=== PATIENT | female | born 1995 | race Caucasian/White ===

== ENCOUNTER 2022-05-20 11:36 | Outpatient (CLI) | payer OTHER, SELFPAY ==
[2022-05-21 11:48] LABS: Rubella Antibody IgG 74.7 IU/mL
== END 2022-05-20 11:37 | disposition home or self-care (01) ==
PROVIDERS: PCP Nurse Practitioner Family; Visit Provider Nurse Practitioner Family
DX: Z11.9 Encounter for screening for infectious and parasitic diseases, unspecified (principal); Z11.1 Encounter for screening for respiratory tuberculosis
CPT/HCPCS: 86735; 86762; 86765

== ENCOUNTER 2022-05-20 12:44 | Outpatient (CLI) | payer OTHER, SELFPAY | END 2022-05-20 12:45 | disposition home or self-care (01) | PROVIDERS: PCP Nurse Practitioner Family; Visit Provider Nurse Practitioner Family | DX: Z11.1 Encounter for screening for respiratory tuberculosis (principal) | CPT/HCPCS: 86735; 86762; 86765 ==

== ENCOUNTER 2022-10-21 18:48 | Emergency (ER) | payer OTHER, SELFPAY ==
[2022-10-21 19:18] VITALS: BP 135/84; PULSE 92; RESP 20; TEMP 36.6; O2SAT 100; BMI 20.8
--- NOTE | 2022-10-21 20:45 | CRLHL7_ITS ---
For Patients: As a result of the Cures Act, medical imaging exams and procedure reports are released immediately into your electronic medical record. You may view this report before your referring provider. If you have questions, please contact your health care provider. INDICATION: Mid sternal chest pain TECHNIQUE: Chest radiograph 1 view COMPARISON: None FINDINGS: Mediastinum: The mediastinum is normal in appearance. The heart silhouette is normal in size and morphology. Lung: Both lungs are unremarkable in appearance. No sign of pleural effusion seen. No pneumothorax is identified. Bone and Soft tissue: Unremarkable for age. IMPRESSION: 1. No acute cardiopulmonary disease is seen. Dictated by: Montana Fisher MD @ 10/21/2022 21:05:10 (Electronically Signed)
[2022-10-21 21:13] LABS: Hemoglobin* 14.2 gm/dL (12.0-16.0)
[2022-10-21 21:28] LABS: Chloride* 106 mmol/L (96-114); Potassium* 4.6 mmol/L (3.6-5.1); Sodium* 141 mmol/L (135-149)
[2022-10-21 21:30] LABS: Creatinine* 0.7 mg/dL (0.5-1.5); Est. Creatinine Clearance* 108.05; Estimated Glomerular Filt Rate 121 ml/min
[2022-10-21 21:31] LABS: Blood Urea Nitrogen* 11 mg/dL (5-24); Carbon Dioxide* 23 mmol/L (20-32)
[2022-10-21 21:32] LABS: Calcium* 9.8 mg/dL (8.4-10.6); Glucose* 85 mg/dL (60-115)
[2022-10-21 21:37] LABS: D Dimer Quantitative* < 0.27 ug/ml (0.00-0.50)
[2022-10-21 21:40] LABS: C Reactive Protein* < 0.5 mg/dL (0.5-1.0)
[2022-10-21 21:48] LABS: Troponin I* < 0.01 ng/mL (0.01-0.04)
[2022-10-21 22:11] VITALS: BP 114/72; PULSE 68; RESP 16; O2SAT 99
--- NOTE | 2022-10-21 22:26 | ED_ITS ---
HPI - Chest Pain General Chief Complaint: Chest Pain Stated Complaint: Chest Pains Time Seen by Provider: 10/21/22 20:11 History of Present Illness HPI narrative: 27-year-old young woman presenting to the emergency department accompanied by spouse with complaint of epigastric an pain under her left breast area that she also seems to be feeling in her mid back that has been present on and off over the last week. Cannot identify any particular exacerbating or relieving factors. Sometimes she will feel a sense of fluttering but has not felt particularly rapid heart rate ever. Denies a history of heartburn/GERD. Currently with this discomfort more in the epigastrium and the low sternum and then again in the back. Symptoms seem to have gotten more intense over the last couple of days. It is not present constantly at least in more intense forms. observing what was being described as a sense of pressure tension on the drive over in the degree of distress thought she might have been having some sort of panic event/attack. There has been some intermittent numbness in the right arm as well. No fever cough and cold symptoms. Related Data Home Medications Medication Instructions Recorded Confirmed No Known Home Medications 10/21/22 10/21/22 Allergies Allergy/AdvReac Type Severity Reaction Status Date / Time No Known Allergies Allergy Verified 10/21/22 19:22 Review of Systems Status of ROS Reports: 10 or more systems reviewed and unremarkable except as noted in History and below PFSH PFSH Family History Family/Other Type 2 diabetes mellitus Social History Smoking Status: Current every day smoker Do you use any of these nicotine containing products: Vaping Products How often do you have a drink containing alcohol: monthly or less How many standard drinks containing alcohol do you have on a typical day: 1 or 2 How often do you have six or more drinks on one occasion: Never AUDIT-C Alcohol total score: 1 Non-prescribed substance use: denies use Exam Narrative Exam Narrative: Pleasant. NAD. Laughs easily. Slim. Skin is warm and dry. No rash evident. Extremities are well perfused without edema. No apparent sensory deficits. Cranial nerves 2-12 look to be intact. Lungs are clear. Not able to reproduce pain really to palpation of the back. Maybe subtly uncomfortable to epigastric palpation but not really. Neither to palpation along the ribs under the left breast. No reproducible pain to palpation of the sternum. Equal pulses in the upper extremities. Heart with a regular rate and rhythm a little elevated initially. No murmur rub or gallop identified. Abdomen otherwise is soft nontender. No crepitus to palpation of the supraclavicular area. Trachea midline. Const Vital Signs, click to edit/add: Vital Signs - 24 hr 10/21/22 19:18 10/21/22 22:11 Temperature 97.9 F Pulse Rate [Pulse Oximeter] 92 68 Respiratory Rate 20 16 Blood Pressure [Right Upper Arm] 135/84 114/72 Pulse Oximetry 100 99 Oxygen Delivery Method Room Air Room Air Documenting provider has reviewed patient's vital signs: yes Course Vital Signs Vital signs: Initial Vital Signs Temperature 97.9 F 10/21/22 19:18 Temperature Source Temporal Artery Scan 10/21/22 19:18 Pulse Rate 92 10/21/22 19:18 Respiratory Rate 20 10/21/22 19:18 Blood Pressure 135/84 10/21/22 19:18 Blood Pressure Mean 101 10/21/22 19:18 Pulse Oximetry 100 10/21/22 19:18 Oxygen Delivery Method 10/21/22 19:18 Vital Signs Temperature 97.9 F 10/21/22 19:18 Pulse Rate 92 10/21/22 19:18 Respiratory Rate 20 10/21/22 19:18 Blood Pressure 135/84 10/21/22 19:18 Pulse Oximetry 100 10/21/22 19:18 Oxygen Delivery Method 10/21/22 19:18 Temperature 97.9 F 10/21/22 19:18 Pulse Rate 68 10/21/22 22:11 Respiratory Rate 16 10/21/22 22:11 Blood Pressure 114/72 10/21/22 22:11 Pulse Oximetry 99 10/21/22 22:11 Oxygen Delivery Method 10/21/22 22:11 MDM - Chest Pain MDM Narrative Medical decision making narrative: Anxiety certainly could have been exacerbating symptoms today at least. Given lack of reproducibly really unclear. Thinks some lab workup is reasonable looking for evidence of pulmonary embolus, vascular disruption, ischemic cardiac event, pneumothorax, pneumomediastinum, pneumonia. Not exactly reproducible or convincing for costochondritis or similar. Initial EKG reviewed by me without evidence of cardiac strain or myocarditis. Chest x-ray reviewed by me as normal Labs overall reassuring. No further events during time in the emergency department. She would like to defer further treatment at this time. Lab Data Attestation: I reviewed the patient's lab results. Labs: Lab Results 10/21/22 10/21/22 10/21/22 Range/Units 21:08 21:08 21:08 Hgb 14.2 (12.0-16.0) gm/dL D-Dimer Quant (PE/DVT) < 0.27 (0.00-0.50) ug/ml Sodium 141 (135-149) mmol/L Potassium 4.6 (3.6-5.1) mmol/L Chloride 106 (96-114) mmol/L Carbon Dioxide 23 (20-32) mmol/L BUN 11 (5-24) mg/dL Creatinine 0.7 (0.5-1.5) mg/dL Estimated Creat Clear 108.05 Estimated GFR 121 ml/min Glucose 85 (60-115) mg/dL Calcium 9.8 (8.4-10.6) mg/dL Troponin I < 0.01 L (0.01-0.04) ng/mL C-Reactive Protein < 0.5 L (0.5-1.0) mg/dL ECG Data Attestation: I personally reviewed and interpreted this ECG as follows: ( sinus rhythm rate of 82) Discharge Plan Discharge Clinical Impression: Atypical chest pain Patient Disposition: Home w/ Parent or Adult Condition: Stable Additional Instructions: Be sure to stay well hydrated as discussed. 2-3 L of water daily would be a good goal. I agree that you can follow-up in primary care to discuss this further. Return for increased frequency/persistence of these symptoms particularly if accompanied by lightheadedness, shortness of breath, nausea. You might attempt a dose or 2 of liquid antacid/anti-gas as a trial? Yes. Anxiety can present as a low smoldering symptom that can wax and wane; a tension, a pressure. Prescriptions: No Action No Known Home Medications Follow Up/Referrals: Mercy Curtis, REGULATORY COORDINATOR, PRETZEL PACKER [Primary Care Provider] - Stand Alone Forms: [facility] Staff[facility] Info Instructions
== END 2022-10-21 22:44 | disposition home or self-care (01) ==
PROVIDERS: Emergency Provider Family Medicine; PCP Nurse Practitioner Family
DX: R07.89 Other chest pain (principal)
CPT/HCPCS: 36415; 71045; 80048; 84484; 85018; 85379; 86140; 93005; 99284

== ENCOUNTER 2023-10-02 11:41 | Outpatient (CLI) | payer OTHER, SELFPAY ==
--- OUTSIDE RECORDS SUMMARY | 2023-10-12 19:45 | XMS_ITS | Clinical Summary ---
Author Name Unknown Organization [facility] Address [address] [place] [id number] Care Team Providers Care Limnologist Name Role Phone Doctor, No Primary Care Provider [facility] Unavailable Allergies No known active allergies Medications No known medications Active Problems Problem Noted Date Diagnosed Date Abdominal pain 08/25/2023 Atypical chest pain 08/25/2023 Screening examination for infectious disease Sore throat 08/25/2023 Urinary tract infection 08/25/2023 Paresthesia 08/18/2023 Tobacco dependence 04/11/2019 Changing pigmented skin lesion 12/14/2017 Encounters Date Type Department Care Team Description 08/25/2023 1:00 PM [employer] Office Visit [facility] [address] [place] [address] Zehra Balderrama, INSTRUMENT PROCESSING TECH, DIRECTOR CORPORATE SECURITY Paresthesia (Primary Dx); Deficiency of multiple nutrient elements from Last 3 Months Social History Tobacco Use Types Packs/Day Years Used Date Smoking Tobacco: Every Day Smokeless Tobacco: Never Tobacco Cessation:Ready to Q uit: Not Asked; Counseling Given: Not Answered Comments:Started vaping at age 20 Alcohol Use Standard Drinks/Week Comments Not Currently 0 (1 standard drink = 0.6 oz pur e alcohol) Sex and Gender Information Value Date Recorded Sex Assigned at Not on file Gender Identity Not on file Sexual Orientation Not on file Last Filed Vital Signs Vital Sign Reading Time Taken Comments Blood Pressure 114/70 08/25/2023 1:14 PM [employer]AGE [employer]ER Pulse - - Temperature - - Respiratory Rate - - Oxygen Saturation - - Inhaled Oxygen Concentration - - Weight 56.7 kg (125 lb) 08/25/2023 1:14 PM [employer]AGE LAB[employer] Height 165.1 cm (5' 5) 08/25/2023 1:14 PM [employer]AGE LABORER Body Mass Index 20.8 08/25/2023 1:14 PM [employer]AGE LABORER Plan of Treatment Health Maintenance Due Date Last Done Comments Hepatitis C Screening 1995 Pap Smear 1995 Anxiety Screening (JESSICA-2) 1996 Depression Assessment (PHQ-2) 1996 Pneumococcal <65 (1 of 2 - PCV) 2001 Adult Tetanus Booster 2014 COVID-19 Vaccine (3 - 2022-24 season) 2023, 05/01/2022 Influenza Vaccine (#1) 2023 10/19/2009 Procedures Procedure Name Priority Date/Time Associated Diagnosis Comments CORTISOL ([facility]) Routine 08/25/2023 12 :49 PM [employer]AGE LAB[employer]ER Deficiency of multiple nutrient elements METHYLMALONIC ACID, SERUM ([facility]) Routine 08/25/2023 12:49 PM [employer]AGE LAB[employer]ER Deficiency of multiple nutrient elements VITAMIN B6, PLASMA ([facility]) Routine 08/25/2023 12:49 PM [employer]AGE LAB[employer]ER Deficiency of multiple nutrient elements VITAMIN C ([facility]) Routine 08/25/2023 1 2:49 PM [employer]AGE LABORER Deficiency of multiple nutrient elements MAGNESIUM, RBC ([facility]) Routine 08/25/2023 12:49 PM [employer]AGE LABORER Deficiency of multiple nutrient elements ZINC, PLASMA OR SERUM ([facility]) Routine 08/25/2023 12:49 PM [employer]AGE LABORER Deficiency of multiple nutrient elements COPPER, SERUM ([facility]) Routine 08/25/2023 12:49 PM [employer]AGE LABORER Deficiency of multiple nutrient elements CALCITRIOL 1,25 DI-OH VITAMIN D ([facility]) Routine 08/25/2023 12:49 PM [employer]AGE LABORER Deficiency of multiple nutrient elements VITAMIN D, 25-HYDROXY ([facility]) Routine 08/25/2023 12:49 PM SAL[employer]AGE LABORER Deficiency of multiple nutrient elements from Last 3 Months Results * METHYLMALONIC ACID, SERUM ([facility]) (08/25/2023 12:49 PM SALVAGE LABORER) Methylmalonic Acid ([facility]) 104 0 - 378 nmol/L [facility] 1 Blood 08/25/2023 12:4 9 PM [employer]AGE LAB[employer]ER 08/24/2023 11:00 PM SAL[employer]AGE LABORER Narrative [facility] 1 - 09/06/2023 7:07 PM SALVAGE LABORER Test(s) 500778-[id number] Acid, Serum was developed and its performance characteristics determined by [facility]. It has not been cleared or approved by the Food and Drug Administration. Performed at: ??01 - [facility] ??[id number] Locomotive Boilermaker: Renae Perez MD, Phone: ??[phone] Zehra Balderrama APRN, CNP [facility] DER[facility] 1 * (ABNORMAL) VITAMIN D, 25-HYDROXY ([facility]) (08/25/2023 12:49 PM [employer]VAGE LABORER) Vitamin D,25 Hydroxy ([facility]) 14.2(L) 30.0 - 100.0 ng/mL [facility] 2 Comment: Vitamin D deficiency has been defined by the [place] of Medicine and an Endocrine Society practice guideline as a level of serum 25-OH vitamin D less than 20 ng/mL (1,2). The Endocrine Society went on to further define vitamin D insufficiency as a level between 21 and 29 ng/mL (2). 1. IOM ([place] of Medicine). 2010. Dietary reference ?? intakes for calcium and D. [place]: The ?? National AcademThe Mother List Press. 2. Ori MF, Geremias MERCADO, Tico THAYER, et al. ?? Evaluation, treatment, and prevention of vitamin D ?? deficiency: an Endocrine Society clinical practice ?? guideline. JCEM. 2011 Apr; 96(7):5191-30. Blood 08/25/2023 12:4 9 PM [employer]AGE LAB[employer]ER 08/24/2023 11:00 PM SALVAGE LABORER Narrative [facility] 2 - 09/06/2023 7:07 PM SAL[employer]AGE LABORER Performed at: ??02 - [facility] [address] ??[id number] Locomotive Boilermaker: Tim Gunderson MD, Phone: ??[phone] Zehra Balderrama APRN DIRECTOR CORPORATE SECURITY [facility]ER[facility] Performing Organization Address [facility] de Phone Number [facility] 2 * CALCITRIOL 1,25 DI-OH VITAMIN D ([facility]) (08/25/2023 12:49 PM SALVAGE LABORER) Vitamin D 1,25 di-OH ([facility]) 36.5 24.8 - 81.5 pg/mL [facility] 1 Blood 08/25/2023 12:4 9 PM [employer]AGE LAB[employer]ER 08/24/2023 11:00 PM SAL[employer]AGE LABORER Narrative [facility] 1 - 09/06/2023 7:07 PM [employer]AGE LABORER Performed at: ??01 - [facility] [address] ??[id number] Locomotive Boilermaker: Renae Perez MD, Phone: ??[phone] Zehra Balderrama APRN DIRECTOR CORPORATE SECURITY [facility]ER[facility] Performing Organization Address [facility] de Phone Number [facility] 1 * VITAMIN B6, PLASMA ([facility]) (08/25/2023 12:49 PM SALVAGE LABORER) Vitamin B6 ([facility]) 10.5 3.4 - 65.2 ug/L [facility] 1 Comment: ? Deficiency: ? <3.4 ? Marginal: ?3.4 - 5.1 ? Adequate: ? >5.1 Blood 08/25/2023 12:4 9 PM [employer] 08/24/2023 11:00 PM SALVAGE LABORER Narrative [facility] 1 - 09/06/2023 7:07 PM SAL[employer]AGE LABORER Test(s) [id number]-[id number] B6 was developed and its performance characteristics determined by [facility]. It has not been cleared or approved by the Food and Drug Administration. Performed at: ??01 - [facility] ??[id number] Locomotive Boilermaker: Renae Perez MD, Phone: ??[phone] Zehra Balderrama APRN, CNP [facility] Performing Organization Address [facility] de Phone Number [facility] 1 * CORTISOL ([facility]) (08/25/2023 12:49 PM SALVAGE LABORER) [facility] Cortisol ([facility]) 7.8 6.2 - 19.4 ug/dL [facility] 2 Comment: Please Note: The reference interval and flagging for this test is for an AM collection. If this is a PM collection please use: ? Cortisol PM: 2.3-11.9 Blood 08/25/2023 12:4 9 PM [employer] 08/24/2023 11:00 PM SAL[employer]AGE LABORER Narrative [facility] 2 - 09/06/2023 7:07 PM SALVAGE LABORER Performed at: ??02 - [facility] [address] ??[id number] Locomotive Boilermaker: Tim Gunderson MD, Phone: ??[phone] Zehra Balderrama APRN, CNP [facility] DER[facility] Performing Organization Address [facility] de Phone Number [facility] 2 * VITAMIN C ([facility]) (08/25/2023 12:49 PM SALVAGE LABORER) Vitmain C ([facility]) 0.9 0.4 - 2.0 mg/dL [facility] 1 Comment: Vitamin C deficiency is generally defined as plasma or serum concentrations less than 0.2 mg/dL and levels between 0.2 and 0.4 mg/dL are considered low. Blood 08/25/2023 12:4 9 PM [employer]AGE LAB[employer]ER 08/24/2023 11:00 PM SALVAGE LABORER Narrative [facility] 1 - 09/06/2023 7:07 PM SALVAGE LABORER Test(s) [id number] C was developed and its performance characteristics determined by [facility]. It has not been cleared or approved by the Food and Drug Administration. Performed at: ??01 - [facility] [address] ??[id number] Locomotive Boilermaker: Renae Perez MD, Phone: ??[phone] Zehra Balderrama APRN, CNP [facility] Performing Organization Address [facility] de Phone Number [facility] 1 * MAGNESIUM, RBC ([facility]) (08/25/2023 12:49 PM SALVAGE LABORER) [facility] Magnesium RBC ([facility]) 5.1 3.7 - 7.0 mg/dL [facility] 1 Comment: This test was developed and its performance characteristics determined by [facility]. It has not been cleared or approved by the Food and Drug Administration. ?Please note reference interval change Blood 08/25/2023 12:4 9 PM [employer]AGE LABORER 08/24/2023 11:00 PM SALVAGE LABORER Narrative [facility] 1 - 09/06/2023 7:07 PM SALVAGE LABORER Performed at: ??01 - [facility] [address] ??[id number] Locomotive Boilermaker: Renae Perez MD, Phone: ??[phone] Zehra Balderrama APRN, CNP [facility] DER[facility]LES Performing Organization Address [facility] de Phone Number [facility] 1 * (ABNORMAL) ZINC, PLASMA OR SERUM ([facility]) (08/25/2023 12:49 PM SALVAGE LABORER) Zinc ([facility]) 140(H) 44 - 115 ug/dL [facility] 1 Comment: ?Detection Limit = 5 Blood 08/25/2023 12:4 9 PM [employer]AGE LAB[employer]ER 08/24/2023 11:00 PM SALVAGE LABORER Narrative [facility] 1 - 09/06/2023 7:07 PM SALVAGE LABORER Test(s) [id number]-[id number], Plasma or Serum was developed and its performance characteristics determined by [facility]. It has not been cleared or approved by the Food and Drug Administration. Performed at: ??01 - [facility] [address] ??[id number] Locomotive Boilermaker: Renae Perez MD, Phone: ??[phone] Zehra Balderrama APRN, BELINDA [facility] * COPPER, SERUM ([facility]) (08/25/2023 12:49 PM SALVAGE LABORER) Copper ([facility]) 151 80 - 158 ug/dL [facility] 1 Comment: ?Detection Limit = 5 Blood 08/25/2023 12:4 9 PM SAL[employer]AGE LABORER 08/24/2023 11:00 PM SALVAGE LABORER Narrative [facility] 1 - 09/06/2023 7:07 PM SALVAGE LABORER Test(s) [id number]-Fplbhv, Serum or Plasma was developed and its performance characteristics determined by [facility]. It has not been cleared or approved by the Food and Drug Administration. Performed at: ??01 - [facility] [address] ??[id number] Locomotive Boilermaker: Renae Perez MD, Phone: ??[phone] Zehra Balderrama INSTRUMENT PROCESSING TECH, DIRECTOR CORPORATE SECURITY [facility] 1 from Last 3 Months Care Teams Limnologist Relationship Specialty Start Date End Date Doctor, No No ad PCP - General Radiology 08/25/23 Clinic, [address] [id number] PCP - Primary Care Clinic 08/25/23
--- OUTSIDE RECORDS SUMMARY | 2023-10-12 19:45 | XMS_ITS | Referral Summary ---
Author Name Unknown Organization [facility] Address [address] [place] [id number] Care Team Providers Care Flight Control Tower Operator Name Role Phone Doctor, No Primary Care Provider [facility] Unavailable Encounters Date Type Department Care Team Description 08/25/2023 1:00 PM MANAGER OF RADIOLOGY Office Visit [facility] [address] [place] [address] Zehra Balderrama, FUNCTIONAL ARCHITECT, PICTURE FRAME MAKER Paresthesia (Primary Dx); Deficiency of multiple nutrient elements from Last 3 Months Allergies No known active allergies Medications No known medications Active Problems Problem Noted Date Diagnosed Date Abdominal pain 08/25/2023 Atypical chest pain 08/25/2023 Screening examination for infectious disease Sore throat 08/25/2023 Urinary tract infection 08/25/2023 Paresthesia 08/18/2023 Tobacco dependence 04/11/2019 Changing pigmented skin lesion 12/14/2017 Social History Tobacco Use Types Packs/Day Years [...] Comments Blood Pressure 114/70 08/25/2023 1:14 PM MANAGER OF RADIOLOGY Pulse - - Temperature - - Respiratory Rate - - Oxygen Saturation - - Inhaled Oxygen Concentration - - Weight 56.7 kg (125 lb) 08/25/2023 1:14 PM MANAGER OF RADIOLOGY Height 165.1 cm (5' 5) 08/25/2023 1:14 PM MANAGER OF RADIOLOGY Body Mass Index 20.8 08/25/2023 1:14 PM MANAGER OF RADIOLOGY Plan of Treatment Not on file Procedures Procedure Name Priority Date/Time Associated Diagnosis Comments CORTISOL ([facility]) Routine 08/25/2023 12 :49 PM MANAGER OF RADIOLOGY Deficiency of multiple nutrient elements METHYLMALONIC ACID, SERUM ([facility]) Routine 08/25/2023 12:49 PM MANAGER OF RADIOLOGY Deficiency of multiple nutrient elements VITAMIN B6, PLASMA ([facility]) Routine 08/25/2023 12:49 PM MANAGER OF RADIOLOGY Deficiency of multiple nutrient elements VITAMIN C ([facility]) Routine 08/25/2023 1 2:49 PM MANAGER OF RADIOLOGY Deficiency of multiple nutrient elements MAGNESIUM, RBC ([facility]) Routine 08/25/2023 12:49 PM MANAGER OF RADIOLOGY Deficiency of multiple nutrient elements ZINC, PLASMA OR SERUM ([facility]) Routine 08/25/2023 12:49 PM MANAGER OF RADIOLOGY Deficiency of multiple nutrient elements COPPER, SERUM ([facility]) Routine 08/25/2023 12:49 PM MANAGER OF RADIOLOGY Deficiency of multiple nutrient elements CALCITRIOL 1,25 DI-OH VITAMIN D ([facility]) Routine 08/25/2023 12:49 PM MANAGER OF RADIOLOGY Deficiency of multiple nutrient elements VITAMIN D, 25-HYDROXY ([facility]) Routine 08/25/2023 12:49 PM MANAGER OF RADIOLOGY Deficiency of multiple nutrient elements from Last 3 Months Results * METHYLMALONIC ACID, SERUM ([facility]) (08/25/2023 12:49 PM MANAGER OF RADIOLOGY) Methylmalonic Acid ([facility]) 104 0 - 378 nmol/L [facility] 1 Blood 08/25/2023 12:4 9 PM MANAGER OF RADIOLOGY 08/24/2023 11:00 PM MANAGER OF RADIOLOGY Narrative [facility] 1 - 09/06/2023 7:07 PM MANAGER OF RADIOLOGY Test(s) 016740-[id number] Acid, Serum was developed and its performance characteristics determined by [facility]. It has not been cleared or approved by the Food and Drug Administration. Performed at: ??01 - [facility] [address] ??[id number] Master At Arms: Renae Perez MD, Phone: ??[phone] Zehra Balderrama APRN, BELINDA [facility] 1 * (ABNORMAL) VITAMIN D, 25-HYDROXY ([facility]) (08/25/2023 12:49 PM MANAGER OF RADIOLOGY) Vitamin D,25 Hydroxy ([facility]) 14.2(L) 30.0 - 100.0 ng/mL [facility] 2 Comment: Vitamin D deficiency has been defined by the [employer] of [employer] and an Endocrine Society practice guideline as a level of serum 25-OH vitamin D less than 20 ng/mL (1,2). The Endocrine Society went on to further define vitamin D insufficiency as a level between 21 and 29 ng/mL (2). 1. IOM ([employer] of Medicine). 2010. Dietary reference ?? intakes for calcium and D. [place]: The ?? National Academies Press. 2. Ori MF, Gerem[place], [place] THAYER, et al. ?? Evaluation, treatment, and prevention of vitamin D ?? deficiency: an Endocrine Society clinical practice ?? guideline. JCEM. 2011 Apr; 96(7):1911-30. Blood 08/25/2023 12:4 9 PM MANAGER OF RADIOLOGY 08/24/2023 11:00 PM MANAGER OF RADIOLOGY Narrative [facility] 2 - 09/06/2023 7:07 PM MANAGER OF RADIOLOGY Performed at: ??02 - [facility] [address] ??[id number] Master At Arms: Tim Gunderson MD, Phone: ??[phone] Zehra Balderrama APRN, CNP [facility] Performing Organization Address [facility]/ZIP Co de Phone Number [facility] 2 * CALCITRIOL 1,25 DI-OH VITAMIN D ([facility]) (08/25/2023 12:49 PM MANAGER OF RADIOLOGY) Vitamin D 1,25 di-OH ([facility]) 36.5 24.8 - 81.5 pg/mL [facility] 1 Blood 08/25/2023 12:4 9 PM MANAGER OF RADIOLOGY 08/24/2023 11:00 PM MANAGER OF RADIOLOGY Narrative [facility] 1 - 09/06/2023 7:07 PM MANAGER OF RADIOLOGY Performed at: ??01 - [facility] [address] ??[id number] Master At Arms: Renae Perez MD, Phone: ??[phone] Zehra Balderrama APRN, CNP [facility] Performing Organization Address [facility] Co de Phone Number [facility] 1 * VITAMIN B6, PLASMA ([facility]) (08/25/2023 12:49 PM MANAGER OF RADIOLOGY) Pathologist [facility] Vitamin B6 ([facility]) 10.5 3.4 - 65.2 ug/L [facility] 1 Comment: ? Deficiency: ? <3.4 ? Marginal: ?3.4 - 5.1 ? Adequate: ? >5.1 Blood 08/25/2023 12:4 9 PM MANAGER OF RADIOLOGY 08/24/2023 11:00 PM MANAGER OF RADIOLOGY Narrative [facility] 1 - 09/06/2023 7:07 PM MANAGER OF RADIOLOGY Test(s) [id number] B6 was developed and its performance characteristics determined by [facility]. It has not been cleared or approved by the Food and Drug Administration. Performed at: ??01 - [facility] [address] ??[id number] Master At Arms: Renae Perez MD, Phone: ??[phone] Zehra Balderrama APRN, CNP [facility] Performing Organization Address [facility] Co de Phone Number [facility] 1 * CORTISOL ([facility]) (08/25/2023 12:49 PM MANAGER OF RADIOLOGY) Cortisol ([facility]) 7.8 6.2 - 19.4 ug/dL [facility] 2 Comment: Please Note: The reference interval and flagging for this test is for an AM collection. If this is a PM collection please use: ? Cortisol PM: 2.3-11.9 Blood 08/25/2023 12:4 9 PM MANAGER OF RADIOLOGY 08/24/2023 11:00 PM MANAGER OF RADIOLOGY Narrative [facility] 2 - 09/06/2023 7:07 PM MANAGER OF RADIOLOGY Performed at: ??02 - [facility] [address] ??[id number] Master At Arms: Tim Gunderson MD, Phone: ??[phone] Zehra Balderrama APRN, CNP [facility] Performing Organization Address [facility] Co de Phone Number [facility] 2 * VITAMIN C ([facility]) (08/25/2023 12:49 PM MANAGER OF RADIOLOGY) Vitmain C ([facility]) 0.9 0.4 - 2.0 mg/dL [facility] 1 Comment: Vitamin C deficiency is generally defined as plasma or serum concentrations less than 0.2 mg/dL and levels between 0.2 and 0.4 mg/dL are considered low. Blood 08/25/2023 12:4 9 PM MANAGER OF RADIOLOGY 08/24/2023 11:00 PM MANAGER OF RADIOLOGY Narrative [facility] 1 - 09/06/2023 7:07 PM MANAGER OF RADIOLOGY Test(s) [id number]-Brrmfnc C was developed and its performance characteristics determined by [facility]. It has not been cleared or approved by the Food and Drug Administration. Performed at: ??01 - [facility] [address] ??[id number] Master At Arms: Renae Perez MD, Phone: ??[phone] Zehra Balderrama APRN, CNP [facility] Performing Organization Address [facility] de Phone Number [facility] 1 * MAGNESIUM, RBC ([facility]) (08/25/2023 12:49 PM MANAGER OF RADIOLOGY) Magnesium RBC ([facility]) 5.1 3.7 - 7.0 mg/dL [facility] 1 Comment: This test was developed and its performance characteristics determined by [facility]. It has not been cleared or approved by the Food and Drug Administration. ?Please note reference interval change Blood 08/25/2023 12:4 9 PM MANAGER OF RADIOLOGY 08/24/2023 11:00 PM MANAGER OF RADIOLOGY Narrative [facility] 1 - 09/06/2023 7:07 PM MANAGER OF RADIOLOGY Performed at: ??01 - [facility] [address] ??[id number] Master At Arms: Renae Perez MD, Phone: ??[phone] Zehra Balderrama APRN, CNP [facility] Performing Organization Address [facility] de Phone Number [facility] 1 * (ABNORMAL) ZINC, PLASMA OR SERUM ([facility]) (08/25/2023 12:49 PM MANAGER OF RADIOLOGY) Zinc ([facility]) 140(H) 44 - 115 ug/dL [facility] 1 Comment: ?Detection Limit = 5 Blood 08/25/2023 12:4 9 PM MANAGER OF RADIOLOGY 08/24/2023 11:00 PM MANAGER OF RADIOLOGY Narrative [facility] 1 - 09/06/2023 7:07 PM MANAGER OF RADIOLOGY Test(s) 415118-[id number], Plasma or Serum was developed and its performance characteristics determined by [facility]. It has not been cleared or approved by the Food and Drug Administration. Performed at: ??01 - [facility] [address] ??[id number] Master At Arms: Renae Perez MD, Phone: ??[phone] Zehra Balderrama APRN PICTURE FRAME MAKER [facility] Performing Organization Address [facility] de Phone Number [facility] 1 * COPPER, SERUM ([facility]) (08/25/2023 12:49 PM MANAGER OF RADIOLOGY) Copper ([facility]) 151 80 - 158 ug/dL [facility] 1 Comment: ?Detection Limit = 5 Blood 08/25/2023 12:4 9 PM MANAGER OF RADIOLOGY 08/24/2023 11:00 PM MANAGER OF RADIOLOGY Narrative [facility] 1 - 09/06/2023 7:07 PM MANAGER OF RADIOLOGY Test(s) [id number], Serum or Plasma was developed and its performance characteristics determined by [facility]. It has not been cleared or approved by the Food and Drug Administration. Performed at: ??01 - [facility] [address] ??[id number] Master At Arms: Renae Perez MD, Phone: ??[phone] Zehra Balderrama APRN PICTURE FRAME MAKER [facility] Performing Organization Address [facility] de Phone Number [facility] 1 from Last 3 Months Care Teams Flight Control Tower Operator Relationship Specialty Start Date End Date Doctor, No No ad PCP - General Radiology 08/25/23 Clinic, [address] [phone] PCP - Primary Care Clinic 08/25/23
--- OUTSIDE RECORDS SUMMARY | 2023-10-12 19:45 | XMS_ITS | Encounter Summary ---
Author Name Unknown Organization [facility] Address [address] [place] [id number] Care Team Providers Care Edge Cutting Machine Operator Name Role Phone Doctor, No Primary Care Provider [facility] Unavailable Reason for Visit * Reason Comments Consultation Encounter Details Date Type Department Care Team ([facility] st Contact Info) Description 08/25/2023 1:00 PM INTERVENTIONIST Office Visit [facility] [place] [place] [address] [place] [id number] Zehra Balderrama, VALET PARKING ATTENDANT, DIRECTOR STUDENT UNION [address] [place], [place] [address] Paresthesia (Primary Dx); Deficiency of multiple nutrient elements Social History Tobacco Use Types Packs/Day Years [...] on file Sexual Orientation Not on file documented as of this encounter Last Filed Vital Signs Vital Sign Reading Time Taken Comments Blood Pressure 114/70 08/25/2023 1:14 PM INTERVENTIONIST Pulse - - Temperature - - Respiratory Rate - - Oxygen Saturation - - Inhaled Oxygen Concentration - - Weight 56.7 kg (125 lb) 08/25/2023 1:14 PM INTERVENTIONIST Height 165.1 cm (5' 5) 08/25/2023 1:14 PM INTERVENTIONIST Body Mass Index 20.8 08/25/2023 1:14 PM INTERVENTIONIST documented in this encounter Progress Notes * Zehra Balderrama, HIGINIO, DIRECTOR STUDENT UNION - 08/25/2023 1:00 PM CST Images from the original note were not included. [facility] [address] [place] [address], [address] [place] [id number] Neurology Initial Note / Consultation Assessment and Plan: #. Paresthesia --MRI brain - unremarkable --MRI cervical - unremarkable --MRI thoracic - unremarkable --Spinal tap - unremarkable --JUN - negative --Check cortisol level --Explained to patient that there appears to be no neurologic origin to her symptoms #. Nutritional deficiencies --Not taking any supplements --Complete panel The differential diagnosis, prognosis, pathophysiology, etiology, and treatment options, side effects and complications and the relative benefits of treatment options were discussed in detail with the patient and family. If I can provide any further information or answer any questions in the interim, the patient or family is welcome to contact me. Chief Complaint: Consultation History of Present Illness: HPI: Jennifer Choudhury is a 28 y.o. female who presents for a neurological consultation for evaluation of paresthesia Patient was seen in ER 08/20/23 for ascending paresthesia. According to ER note it started from R calf, to BLE below knee, now up to BLE upper mid thighs, with RUE after 6 days. Symptoms started 08/14/23. No clear weakness, gait difficulty, saddle anesthesia, dysphagia, diplopia. MRI brain, C spine, T spine unremarkable as was spinal tap and all lab work. Patient states she had no other symptoms i ncluding weakness, visual changes, speech changes etc. Patient states that symptoms come and go mainly in the right arm. Onset is random. Has had some mild tingling in her right face as well. No history of these symptoms in the past. Patient states she has a history of anxiety but this has never been diagnosed. 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 Past Surgical History: No past surgical history on file. Medications: No current outpatient medications on file. Allergy: Patient has no known allergies. Family History: No family history on file. Social History: Social History Socioeconomic History Marital status: Spouse name: Not on file Number of children: Not on file Years of education: Not on file Highest education level: Not on file Occupational History Not on file Tobacco Use Smoking status: Every Day Smokeless tobacco: Never Tobacco comments: Started vaping at age 20 Vaping Use Vaping Use: Every day Substances: Nicotine, Flavoring Substance and Sexual Activity Alcohol use: Not Currently Drug use: Never Sexual activity: Not on file Other Topics Concern Not on file Social History Narrative Not on file Social Determinants of Health Financial Resource Strain: Not on file Food Insecurity: Not on file Transportation Needs: Not on file Physical Activity: Not on file Stress: Not on file Social Connections: Not on file Intimate Partner Violence: Not on file Housing Stability: Not on file Review of System: A comprehensive review of 10 systems was performed and found to be negative except as described in this note CONSTITUTIONAL: negative for fever, chills, change in weight INTEGUMENTARY/SKIN: no rash or obvious new lesions ENT/MOUTH: no sore throat, new sinus pain or nasal drainage, no neck mass noted RESP: No pleuretic pain, No cough, no hemoptysis, No SOB CV: negative for chest pain, palpitations or peripheral edema GI: no nausea, vomiting, change in stools : no dysuria or hematuria MUSCULOSKELETAL: no myalgias, arthralgias or join effusion ENDOCRINE: no history of polyuria, polydyspsia or symptoms of thyroid dysfunction PSYCHIATRIC: no change in mood stable LYMPHATIC: no new lymphadenopathy HEME: no bleeding or easy bruisability NEURO: see HPI Physical Exam: BP 114/70 Ht 5' 5 (1.651 m) Wt 56.7 kg (125 lb) BMI 20.80 kg/m?? GENERAL: The patient is alert, cooperative and in no distress. HEENT: Head is atraumatic and normocephalic. Hearing is normal. Mucosa is intact. Sinus palpation is unremarkable. Neck is supple. Facial movement and facial sensation is normal. Temporal artery and temporomandibular joint palpation is unremarkable. LUNGS: Clear to auscultation, without adventitial sounds. CARDIOVASCULAR SYSTEM: Regular rate, no murmur. Pulses are normal. SKIN: No rash or lesions are noted. EXTREMITIES: No clubbing or cyanosis NEUROLOGIC EXAMINATION MENTAL STATUS: The patient is able to respond to simple commands and questions appropriately. Speech, orientation, memory, fund of knowledge, attention and concentration are normal. CRANIAL NERVES II THROUGH XII: II - XII are intact. MOTOR EXAMINATION: Muscle tone and bulk are normal throughout, without wasting or fasciculations. Strength testing is unremarkable and upper and lower extremities. DEEP TENDON REFLEXES: are normal and symmetric. SENSORY EXAMINATION: Sensation is intact and symmetric to vibration, touch and pin. No spinal sensory level is detected. CEREBELLAR EXAMINATION: No dysdiadochokinesis or dysmetria is noted, and coordination is normal. Romberg is negative. GAIT: Normal including toe, heel and tandem. Data: ROUTINE LABS CSF studies IGG CSF <=3.40 mg/dL 1.69 ALBUMIN,CSF <=35.00 mg/dL 12.75 IGG 610.30 - 1616.00 mg/dL 1,228.98 ALBUMIN,SERUM IMMUNO 3500.00 - 5200.00 mg/dL 4,881.99 IGG INDEX 0.30 - 0.60 0.53 IGG SYNTHESIS <=8.00 mg/day <0.00 OLIGOCLONAL BANDS Absent Absent ELP INTERPRETATION,CSF/SERUM Study within normal limits. No evidence of a demyelinating disease process. Interpreted and electronically signed by: Daniella Ashley MD PROTEIN CSF,TOTAL 15 - 45 mg/dL 25 IGG CSF <=3.40 mg/dL 1.69 ALBUMIN,CSF <=35.00 mg/dL 12.75 PROTEIN CSF,TOTAL 15 - 45 mg/dL 25 TUBE NUMBER Four CSF COLOR Colorless Colorless CSF CLARITY Clear Clear TOTAL NUCLEATED CELLS, CSF <=25 /cu mm 1 RED BLOOD COUNT, CSF <10 /cu mm 0 CULTURE No Growth. [facility] GRAM STAIN No PMNs [facility] GRAM STAIN No organisms seen [facility] GRAM STAIN Gram stain performed by [place], [place] PROTEIN CSF,TOTAL 15 - 45 mg/dL 25 GLUCOSE,CSF 40 - 70 mg/dL 56 08/27 SEDIMENTATION RATE <20 mm/hr 10 ANTINUCLEAR ANTIBODY (JUN) Negative Negative ANTI-OHOGAMIUT DNA Negative Negative ANCA Negative Negative C-REACTIVE PROTEIN <0.5 mg/dL <0.3 TSH 0.27 - 4.20 uIU/mL 2.86 VITAMIN B12 232 - 1245 pg/mL 641 FOLIC ACID 4.6 - 34.8 ng/mL 10.5 Component 08/18/23 05/22/19 WHITE BLOOD COUNT 11.7 High 10.4 RED BLOOD COUNT 4.85 4.10 HEMOGLOBIN 15.2 13.1 HEMATOCRIT 44.7 38.4 MCV 92 94 MCH 31.3 32.0 MCHC 34.0 34.1 RDW 12.4 12.3 PLATELET COUNT 274 259 MPV 8.4 8.1 % NEUT 77.5 77.7 % LYMPH 16.5 12.5 % MONO 4.9 8.7 % EOS 0.8 0.9 % BASO 0.3 0.2 ABSOLUTE NEUTROPHILS 9.1 High 8.1 High ABSOLUTE LYMPHOCYTES 1.9 1.3 ABSOLUTE MONOCYTES 0.6 0.9 High ABSOLUTE EOSINOPHILS 0.1 0.1 ABSOLUTE BASOPHILS 0.0 0.0 Component 08/18/23 05/22/19 SODIUM 138 140 POTASSIUM 4.1 3.7 CHLORIDE 102 107 CO2,TOTAL 25 23 ANION GAP 11 10 GLUCOSE 88 84 CALCIUM 9.8 9.5 BUN 13 14 CREATININE 0.76 0.86 BUN/CREAT RATIO 17 -- eGFR >90 -- ALBUMIN 5.1 High 4.5 PROTEIN,TOTAL 8.4 High 7.7 BILIRUBIN,TOTAL 0.5 0.6 ALK PHOSPHATASE 72 57 ALT (SGPT) 10 11 AST (SGOT) 15 13 IMAGING: All imaging studies were reviewed personally MRI cervical w&wo 08/19/23: Unremarkable contrast-enhanced MRI of the cervical spine. No foci of abnormal intraspinal enhancement of the cervical spine. MRI thoracic w&wo 08/19/23: Unremarkable MRI of the thoracic spine. Normal cord signal. No suspicious enhancement. MRI brain w&wo 08/19/23: Unremarkable contrast-enhanced MRI of the brain. Zehra Balderrama APRN, DIRECTOR STUDENT UNION TIME: I spent 45 minutes on the date of the encounter with this patient consisting of activities before, during, and after the encounter including time spent: Preparing to see the patient including review of the chart, tests, and/or outside records. Reviewing and verifying information regarding the chief complaint and history already recorded by ancillary staff and/or the patient. Obtaining history and performing medically appropriate evaluation. Counseling the patient regarding the diagnosis, additional diagnostic considerations, possible diagnostic testing, and any potential options for therapy, including conservative/lifestyle measures andpharmacotherapy including risks/benefits, side effects, and adverse effects. I also counseled the patient on how to contact me with any questions or concerns, new or worsening symptoms. Ordering medications, tests, and/or procedures, and documenting in the chart. RVENTIONIST documented in this encounter Plan of Treatment Not on file documented as of this encounter Procedures Procedure Name Priority Date/Time Associated Diagnosis Comments METHYLMALONIC ACID, SERUM ([facility]) Routine 08/25/2023 12:49 PM INTERVENTIONIST Deficiency of multiple nutrient elements VITAMIN D, 25-HYDROXY ([facility]) Routine 08/25/2023 12:49 PM INTERVENTIONIST Deficiency of multiple nutrient elements CALCITRIOL 1,25 DI-OH VITAMIN D ([facility]) Routine 08/25/2023 12:49 PM INTERVENTIONIST Deficiency of multiple nutrient elements VITAMIN B6, PLASMA ([facility]) Routine 08/25/2023 12:49 PM INTERVENTIONIST Deficiency of multiple nutrient elements CORTISOL ([facility]) Routine 08/25/2023 12 :49 PM INTERVENTIONIST Deficiency of multiple nutrient elements VITAMIN C ([facility]) Routine 08/25/2023 1 2:49 PM INTERVENTIONIST Deficiency of multiple nutrient elements MAGNESIUM, RBC ([facility]) Routine 08/25/2023 12:49 PM INTERVENTIONIST Deficiency of multiple nutrient elements ZINC, PLASMA OR SERUM ([facility]) Routine 08/25/2023 12:49 PM INTERVENTIONIST Deficiency of multiple nutrient elements COPPER, SERUM ([facility]) Routine 08/25/2023 12:49 PM INTERVENTIONIST Deficiency of multiple nutrient elements documented in this encounter Results * CORTISOL ([facility]) (08/25/2023 12:49 PM INTERVENTIONIST) Cortisol ([facility]) 7.8 6.2 - 19.4 ug/dL [facility] Comment: Please Note: The reference interval and flagging for this test is for an AM collection. If this is a PM collection please use: ? Cortisol PM: 2.3-11.9 Blood 08/25/2023 12:4 9 PM INTERVENTIONIST 08/24/2023 11:00 PM INTERVENTIONIST Narrative [facility] 2 - 09/06/2023 7:07 PM INTERVENTIONIST Performed at: ??02 - [facility] [address] ??[id number] Manager Operating: Tim Gunderson MD, Phone: ??[phone] Zehra Balderrama APRN, CNP [facility] OR Vyteris [facility] 2 * METHYLMALONIC ACID, SERUM ([facility]) (08/25/2023 12:49 PM INTERVENTIONIST) Pathologist [facility] Methylmalonic Acid ([facility]) 104 0 - 378 nmol/L [facility] Blood 08/25/2023 12:4 9 PM INTERVENTIONIST 08/24/2023 11:00 PM INTERVENTIONIST Narrative [facility] 1 - 09/06/2023 7:07 PM INTERVENTIONIST Test(s) 604855-Rlzxevepbveuj Acid, Serum was developed and its performance characteristics determined by [facility]. It has not been cleared or approved by the Food and Drug Administration. Performed at: ??01 - [facility] [address] ??[id number] Manager Operating: Renae Perez MD, Phone: ??[phone] Zehra Balderrama APRN, CNP [facility] OR DERABLES Performing Organization Address [facility] de Phone Number [facility] 1 * VITAMIN B6, PLASMA ([facility]) (08/25/2023 12:49 PM INTERVENTIONIST) Vitamin B6 ([facility]) 10.5 3.4 - 65.2 ug/L [facility] 1 Comment: ? Deficiency: ? <3.4 ? Marginal: ?3.4 - 5.1 ? Adequate: ? >5.1 Blood 08/25/2023 12:4 9 PM INTERVENTIONIST 08/24/2023 11:00 PM INTERVENTIONIST Narrative [facility] 1 - 09/06/2023 7:07 PM INTERVENTIONIST Test(s) 928128-Lqwnxco B6 was developed and its performance characteristics determined by [facility]. It has not been cleared or approved by the Food and Drug Administration. Performed at: ??01 - [facility] ??[id number] Manager Operating: Renae Perez MD, Phone: ??[phone] Zehra Balderrama APRN, CNP [facility] DERABLES Performing Organization Address [facility] de Phone Number [facility] 1 * VITAMIN C ([facility]) (08/25/2023 12:49 PM INTERVENTIONIST) Pathologist [facility] Vitmain C ([facility]) 0.9 0.4 - 2.0 mg/dL [facility] 1 Comment: Vitamin C deficiency is generally defined as plasma or serum concentrations less than 0.2 mg/dL and levels between 0.2 and 0.4 mg/dL are considered low. Blood 08/25/2023 12:4 9 PM INTERVENTIONIST 08/24/2023 11:00 PM INTERVENTIONIST Narrative [facility] 1 - 09/06/2023 7:07 PM INTERVENTIONIST Test(s) 511452-Ipqsthd C was developed and its performance characteristics determined by [facility]. It has not been cleared or approved by the Food and Drug Administration. Performed at: ??01 - [facility] [address] ??[id number] Manager Operating: Renae Perez MD, Phone: ??[phone] Zehra Balderrama APRN, CNP [facility] DERABLES Performing Organization Address [facility]/ZIP Co de Phone Number [facility] 1 * MAGNESIUM, RBC ([facility]) (08/25/2023 12:49 PM INTERVENTIONIST) Magnesium RBC ([facility]) 5.1 3.7 - 7.0 mg/dL [facility] 1 Comment: This test was developed and its performance characteristics determined by [facility]. It has not been cleared or approved by the Food and Drug Administration. ?Please note reference interval change Blood 08/25/2023 12:4 9 PM INTERVENTIONIST 08/24/2023 11:00 PM INTERVENTIONIST Narrative [facility] 1 - 09/06/2023 7:07 PM INTERVENTIONIST Performed at: ??01 - [facility] [address] ??[id number] Manager Operating: Renae Perez MD, Phone: ??[phone] Zehra Balderrama APRN, CNP [facility] OR DERABLES Performing Organization Address [facility]/ZIP Co de Phone Number [facility] 1 * (ABNORMAL) ZINC, PLASMA OR SERUM ([facility]) (08/25/2023 12:49 PM INTERVENTIONIST) Zinc ([facility]) 140(H) 44 - 115 ug/dL [facility] 1 Comment: ?Detection Limit = 5 Blood 08/25/2023 12:4 9 PM INTERVENTIONIST 08/24/2023 11:00 PM INTERVENTIONIST Narrative [facility] 1 - 09/06/2023 7:07 PM INTERVENTIONIST Test(s) 453296-Fvkm, Plasma or Serum was developed and its performance characteristics determined by [facility]. It has not been cleared or approved by the Food and Drug Administration. Performed at: ??01 - [facility] [address] ??[id number] Manager Operating: Renae Perez MD, Phone: ??[phone] Zehra Balderrama APRN, CNP [facility] OR DERABLES Performing Organization Address [facility] de Phone Number [facility] 1 * COPPER, SERUM ([facility]) (08/25/2023 12:49 PM INTERVENTIONIST) Copper ([facility]) 151 80 - 158 ug/dL [facility] 1 Comment: ?Detection Limit = 5 Blood 08/25/2023 12:4 9 PM INTERVENTIONIST 08/24/2023 11:00 PM INTERVENTIONIST Narrative [facility] 1 - 09/06/2023 7:07 PM INTERVENTIONIST Test(s) 435560-Nngsed, Serum or Plasma was developed and its performance characteristics determined by [facility]. It has not been cleared or approved by the Food and Drug Administration. Performed at: ??01 - [facility] [address] ??[id number] Manager Operating: Renae Perez MD, Phone: ??[phone] Zehra Balderrama APRN, CNP [facility] OR DERABLES Performing Organization Address [facility] de Phone Number [facility] 1 * CALCITRIOL 1,25 DI-OH VITAMIN D ([facility]) (08/25/2023 12:49 PM INTERVENTIONIST) Vitamin D 1,25 di-OH ([facility]) 36.5 24.8 - 81.5 pg/mL [facility] 1 Blood 08/25/2023 12:4 9 PM INTERVENTIONIST 08/24/2023 11:00 PM INTERVENTIONIST Narrative [facility] 1 - 09/06/2023 7:07 PM INTERVENTIONIST Performed at: ??01 - [facility] [address] ??[id number] Manager Operating: Renae Perez MD, Phone: ??[phone] Zehra Balderrama VALET PARKING ATTENDANT, DIRECTOR STUDENT UNION [facility] OR DERABLES [facility] 1 * (ABNORMAL) VITAMIN D, 25-HYDROXY ([facility]) (08/25/2023 12:49 PM INTERVENTIONIST) Vitamin D,25 Hydroxy ([facility]) 14.2(L) 30.0 - 100.0 ng/mL [facility] 2 Comment: Vitamin D deficiency has been defined by the [place] [employer] and an Endocrine Society practice guideline as a level of serum 25-OH vitamin D less than 20 ng/mL (1,2). The Endocrine Society went on to further define vitamin D insufficiency as a level between 21 and 29 ng/mL (2). 1. IOM ([place] [employer]). 2010. Dietary reference ?? intakes for calcium and D. [place]: The ?? National Academies Press. 2. Ori MF, Geremias [place], [place] THAYER, et al. ?? Evaluation, treatment, and prevention of vitamin D ?? deficiency: an Endocrine Society clinical practice ?? guideline. JCEM. 2010; 96(7):1911-30. Blood 08/25/2023 12:4 9 PM INTERVENTIONIST 08/24/2023 11:00 PM INTERVENTIONIST Narrative [facility] 2 - 09/06/2023 7:07 PM INTERVENTIONIST Performed at: ??02 - [facility] [address] ??[id number] Manager Operating: Tim Gunderson MD, Phone: ??[phone] Zehra Noel Conchis VALET PARKING ATTENDANT, DIRECTOR STUDENT UNION [facility] OR DERABLES [facility] 2 documented in this encounter Visit Diagnoses Diagnosis Paresthesia- Primary Disturbance of skin sensation Deficiency of multiple nutrient elements Other nutritional deficiency documented in this encounter Care Teams Edge Cutting Machine Operator Relationship Specialty Start Date End Date Doctor, No No ad PCP - General Radiology 08/25/23 Clinic, [address] [id number] PCP - Primary Care Clinic 08/25/23 documented as of this encounter
--- OUTSIDE RECORDS SUMMARY | 2023-10-12 19:46 | XMS_ITS | Clinical Summary ---
Author Name Unknown Organization [facility] Address [place], [place] [address] Care Team Providers Care Business Systems Lead Name Role Phone None Primary Care Provider Unavailabl e Pcp, No Unavailable Unavailable Medications No known medications Active Problems Problem Noted Date Diagnosed Date Paresthesia 08/18/2023 Tobacco dependence 04/11/2019 Changing pigmented skin lesion 12/14/2017 Encounters Date Type Department Care Team Description 10/06/2023 Lab Requisition [facility] [phone] Demi Parnell CNM 08/24/2023 Telephone [facility] [address] [place] [phone] Radha Hill DO Referral (neurology) 08/19/2023 2:40 PM [place] AUDIT[place] Anesthesia Event [facility] [address] [place] [address] Henny Mackay CRNA 08/18/2023 2:12 AM [place] AUDITOR - 08/20/2023 3:30 PM [place] AUDITOR Emergency [facility] [address] [place] [address] Rachael Bhatt MD Nguyen, Thao Nguyen L, [employer] SALES REPRESENTATIVE Jozef Mistry MBBS Paresthesia (Primary Dx) Discharge Disposition: Home Self Care 08/18/2023 Travel from Last 3 Months Immunizations Name Administration Dates Next Due Influenza A (H1N1), Inactivated 10/19/2009 Family History Medical History Relation Name Comments Good Health Brother 1 Good Health Brother 2 Good Health Brother 3 Good Health Father Good Health Mother Relation Name Status Comments Brother 1 Alive Brother 2 Alive Brother 3 Alive Father Alive Mother Alive Social History Tobacco Use Types Packs/Day Years Used Date Smoking Tobacco: Never Smokeless Tobacco: Never Tobacco Cessation:Counseling Given: Not Answered Alcohol Use Standard Drinks/Week Comments Not Currently 0 (1 standard drink = 0.6 oz pur e alcohol) PHQ-2 Answer Date Recorded PHQ-2 Score 0 04/11/2019 Social Connections Answer Date Recorded Frequency of Communication with Friends and Fami ly 0 08/18/2023 Financial Resource Strain Answer Date R ecorded Difficulty of Paying Living Expenses 3 08/18/2023 Difficulty of Paying Living Expenses Not on file 08/18/2023 Food Insecurity Answer Date Recorded Worried About Running Out of Food in the Last Ye ar 1 08/18/2023 Transportation Needs Answer Date Record ed Lack of Transportation (Medical) 1 08/18/2023 Housing Stability Answer Date Recorded Unable to Pay for Housing in the Last Year 1 08/18/2023 Sex and Gender Information Value Date Recorded Sex Assigned at Not on file Gender Identity Not on file Sexual Orientation Not on file Obstetrics History Last Filed Vital Signs Vital Sign Reading Time Taken Comments Blood Pressure 114/66 08/20/2023 8:57 AM [place] AUDIT[place] Pulse 74 08/20/2023 5:00 AM [place] AUDITOR Temperature 36.9 ??C (98.5 ??F) 08/20/2023 8:57 AM CS T Respiratory Rate 18 08/20/2023 8:57 AM [place] AUDITOR Oxygen Saturation 96% 08/20/2023 5:00 AM [place] AUDITOR Inhaled Oxygen Concentration - - Weight 56.6 kg (124 lb 12.8 oz) 023 10:53 AM [place] AUDITOR Height 165.1 cm (5' 5) 08/18/2023 2:20 AM [place] AUDITOR Body Mass Index 20.77 08/18/2023 2:20 AM [place] AUDITOR Plan of Treatment Health Maintenance Due Date Last Done Comments COVID-19 vaccine series (#1) 1995 Tdap 2006 Tetanus booster 2015 BMI (ht and wt on same day) for age 18+ 04/11/2020 04/11/2019, 11/13/2017, 11/08/2015 Depression screening for age 12+ 04/11/2020 04/11/2019 Influenza for age 9-49 06/05/2023 10/19/2009 Pap test for age 21-65 10/02/2026 3, 04/05/2018 HIV for age 15-65 Completed 11/08/2015 Hepatitis C screening for ag e 18-79 Completed 11/08/2015 Pneumococcal series for age 6-64 Aged Out No longer eligible b ased on patient's age to complete this topic Procedures Procedure Name Priority Date/Time Associated Diagnosis Comments LAB TRACKING EVENT Routine 10/02/2023 11 :30 AM [place] AUDIT[place] HPV THIN PREP Routine 10/02/2023 11:30 AM [place] AUDITOR GLUCOSE METER Routine 08/20/2023 3:09 PM [place] AUDITOR PATH NON FIREWALL ENGINEER CYTOLOGY Today 08/20/2023 2:07 PM [place] AUDITOR AHC AN LUMBAR PUNCTURE Routine 2:45 PM [place] AUDITOR MULTIPLE SCLEROSIS SCN CSF Today 08/19/2023 2:36 PM [place] AUDITOR CSF CELL COUNT/DIFF Today 08/19/2023 2 :36 PM [place] AUDITOR SPINAL FLUID CULT, STAIN Today 08/19/2023 2:36 PM [place] AUDITOR PROTEIN CSF,TOTAL Today 08/19/2023 2:3 6 PM [place] AUDITOR GLUCOSE,CSF Today 08/19/2023 2:36 PM [place] AUDITOR MR HEAD BRAIN WWO STAT 08/19/2023 1:0 8 PM [place] AUDITOR MR SPINE THORACIC WWO STAT 08/19/2023 1:07 PM [place] AUDITOR MR SPINE CERVICAL WWO STAT 08/19/2023 1:05 PM [place] AUDITOR DNA DOUBLE-STRANDED (DSDNA) ANTIBODIES BY CRITHIDIA LUCILIAE IFA Early AM 08/19/2023 6:24 AM [place] AUDITOR ANCA PANEL FOR VASCULITIS Early AM 08/19/2023 6:24 AM [place] AUDITOR ANTINUCLEAR ANTIBODY BY IFA Early AM 08/19/2023 6:24 AM [place] AUDITOR SEDIMENTATION RATE Early AM 08/19/2023 6: 24 AM [place] AUDITOR MULTIPLE SCLEROSIS SCN SERUM Today 08/18/2023 2:46 PM [place] AUDITOR C-REACTIVE PROTEIN Timed 08/18/2023 2: 46 PM [place] AUDITOR MULTIPLE SCLEROSIS SCREEN Today 08/18/2023 2:46 PM [place] AUDITOR CBC WITH AUTO DIFFERENTIAL STAT 08/18/2023 3:35 AM [place] AUDITOR FOLIC ACID STAT 08/18/2023 3:35 AM [place] AUDITOR VITAMIN B12 STAT 08/18/2023 3:35 AM [place] AUDITOR TSH STAT 08/18/2023 3:35 AM [place] AUDITOR COMP METABOLIC PANEL STAT 08/18/2023 3:35 AM [place] AUDITOR CBC WITH AUTO DIFFERENTIAL STAT 08/18/2023 3:35 AM [place] AUDITOR from Last 3 Months Results * LAB TRACKING EVENT (10/02/2023 11:30 AM [place] AUDITOR) Other (Other) Client Collect / Unknown 10/02/2023 11:30 AM [place] AUDITOR 10/06/2023 4:02 PM [place] AUDITOR Demi Parnell CNM LAB BILL ONLY [facility] [address] [place] [phone], * HPV HIGH RISK (10/02/2023 11:30 AM [place] AUDITOR) TYPE 16 Negative Negative 10/08/2023 2:27 PM [place] AUDITOR [facility] TYPE 18 Negative Negative 10/08/2023 2:27 PM [place] AUDITOR [facility] OTHER HIGH RISK TYPES Negative Negative 10/08/2023 2:27 PM [place] AUDITOR [facility] Other (Cervical) 10/02/2023 11:30 AM [place] AUDITOR 10/07/2023 10:06 AM [place] AUDITOR Narrative [facility] - 10/08/2023 2:27 PM [place] AUDITOR HPV types 16, 18, 31, 33, 35, 39, 45, 51, 52, 56, 58, 59, 66 and 68 DNA were undetectable or below the pre-set threshold. Methodology: [employer] Brynn 4800 HPV Test Demi Parnell CNM MICROBIOLOGY Performing Organization Address [facility]/ZIP Co de Phone Number [facility] [address] [place] [phone] [place] [address] * (ABNORMAL) GLUCOSE METER (08/20/2023 3:09 PM [place] AUDITOR) GLUCOSE METER 105(H) 65 - 100 mg/dL 08/20/2023 3:13 PM [place] AUDITOR [facility] Blood BLOOD SPECIMEN / Unknown 08/20/2023 3:09 PM [place] AUDITOR 08/20/2023 3:13 PM [place] AUDITOR Jozef BOURGEOIS CHEMISTRY Performing Organization Address City/[facility]/ZIP Co de Phone Number [facility] [address] [place] [address] * PATH NON FIREWALL ENGINEER CYTOLOGY (08/20/2023 2:07 PM [place] AUDITOR) Case Report Medical Cytology Report ? Case: [id number] ? Authorizing Provider: ??Jozef Mistry MBBS Collected: ? 08/20/2023 1407 ? [facility] Location[facility] ? [facility] ?Received: ?08/19/2023 1451 ? Medical Center ? Pathologist: ? Mariza Kathleen MD ? Specimen: ?Cerebrospinal Fluid ? 08/21/2023 1:36 PM [email or web address] Final Diagnosis A) CEREBROSPINAL FLUID, LUMBAR PUNCTURE: Negative for malignancy 08/21/2023 1:36 PM [email or web address] Clinical Information Concern for myelopathy 08/21/2023 1:36 PM [email or web address] Gross Description A) SOURCE: Cerebrospinal fluid The specimen consists of 1 cc of colorless clear fluid from which the following is prepared: ? -2 DiffQuik stained Cytospin slides ? -0 GMS stained Cytospin slides ? -0 Unstained air dried Cytospin Slide(s) are held for potential ancillary study purposes 08/21/2023 1:36 PM [place] AUDITOR [facility] Microscopic Description Specimen adequacy: Adequate for interpretation. All slides were reviewed. The microscopic appearance substantiates the diagnosis. The slides demonstrate rare, mature lymphocytes, a normal finding. 08/21/2023 1:36 PM [place] AUDITOR [facility] Additional Information Cytology is screened at [facility] - [address], [place] [address] and [facility] - [address], [place] [address] and [facility] - [address] [place] [address] Interpreted at [facility] - [address], [place] [address] 08/21/2023 1:36 PM [place] AUDITOR [facility] Other CEREBROSPINAL FLUID SPECIMEN / Unknown 08/20/2023 2:07 PM [place] AUDITOR 08/19/2023 2:51 PM [place] AUDITOR Jozef BOURGEOIS PATHOLOGY/CYTOL OGY Performing Organization Address City/State/[facility] Co de Phone Number [facility] [address] [place] [address], * Lumbar Puncture (08/19/2023 2:45 PM [place] AUDITOR) Narrative Henny Mackay CRNA - 08/19/2023 2:45 PM [place] AUDITOR Henny Mackay CRNA ? 08/31/2023 11:31 AM Lumbar Puncture Patient location during procedure: floor Start time: 08/19/2023 2:30 PM End time: 08/19/2023 2:39 PM Requesting provider: Sangeetha Ellington NP PreProcedure Checklist Completed: patient identified, risks and benefits discussed, timeout performed, hand hygiene performed, chloraprep used and completely dried prior to procedure, site marked, surgical consent, hand hygiene performed and procedureal consent obtained Spinal Block Patient position: sitting Prep: chloraprep Patient monitoring: continuous pulse oximetry Approach: midline Skin Infiltration: lidocaine 1% Location: L3-4 Needle Needle type: pencil-point Needle gauge: 25 G Needle length: 3.5 in Procedure: CSF Quality: clear Events: no complications. Volume Collected: 6 CC's/mL's Henny Mackay HULL BUILDER ANESTHESIA PX NOTE ORDERABLES * MULTIPLE SCLEROSIS SCN CSF (08/19/2023 2:36 PM [place] AUDITOR) IGG CSF 1.69 <=3.40 mg/dL 08/20/2023 10:38 AM [place] AUDITOR [facility] ALBUMIN,CSF 12.75 <=35.00 mg/dL 08/20/2023 10:38 AM [place] AUDITOR [facility] PROTEIN CSF,TOTAL 25 15 - 45 mg/dL 08/20/2023 10:38 AM [place] AUDITOR [facility] Cerebrospinal Fluid CEREBROSPINAL FLUID SPECIMEN / Unknown Non-Blood / Unknown 08/19/2023 2:36 PM [place] AUDITOR 08/19/2023 2:50 PM [place] AUDITOR Jozef BOURGEOIS BODY FLUID Performing Organization Address City/[facility]/ZIP Co de Phone Number [facility] [address] [place] [address], * SPINAL FLUID CULT, STAIN (08/19/2023 2:36 PM [place] AUDITOR) CULTURE No Growth. 08/24/2023 7:29 AM [place] AUDITOR [facility] GRAM STAIN No PMNs 08/24/2023 7:29 AM [place] AUDITOR [facility] GRAM STAIN No organisms seen 08/24/2023 7:29 AM [place] AUDITOR [facility] GRAM STAIN Gram stain performed by [place], [place] 08/24/2023 7:29 AM [place] AUDITOR [facility] Cerebrospinal Fluid CEREBROSPINAL FLUID SPECIMEN / Unknown Non-Blood / Unknown 08/19/2023 2:36 PM [place] AUDITOR 08/19/2023 2:50 PM [place] AUDITOR Jozef LANGSTON MICROBIOLOGY [facility] [address] [place] [id number], [facility] [address] [place] [address] * CSF CELL COUNT/DIFF (08/19/2023 2:36 PM [place] AUDITOR) TUBE NUMBER Four 08/19/2023 5:23 PM [place] AUDITOR [facility] CSF COLOR Colorless Colorless 08/19/2023 5:23 PM [place] AUDITOR [facility] CSF CLARITY Clear Clear 08/19/2023 5:23 PM [facility] TOTAL NUCLEATED CELLS, CSF 1 <=25 /cu mm 08/19/2023 5:23 PM [facility] RED BLOOD COUNT, CSF 0 <10 /cu mm 08/19/2023 5:23 PM [facility] Cerebrospinal Fluid CEREBROSPINAL FLUID SPECIMEN / Unknown Non-Blood / Unknown 08/19/2023 2:36 PM [place] AUDITOR 08/19/2023 2:50 PM [place] AUDITOR [facility] - 08/19/2023 5:23 PM [place] AUDITOR No cells observed. Unable to perform leukocyte differential. Jozef BOURGEOIS BODY FLUID [facility] [address] [place] [address] * PROTEIN CSF,TOTAL (08/19/2023 2:36 PM [place] AUDITOR) [facility] PROTEIN CSF,TOTAL 25 15 - 45 mg/dL 08/19/2023 4:08 PM [place] AUDITOR [facility] Cerebrospinal Fluid CEREBROSPINAL FLUID SPECIMEN / Unknown Non-Blood / Unknown 08/19/2023 2:36 PM [place] AUDITOR 08/19/2023 2:50 PM [place] AUDITOR Jozef BOURGEOIS BODY FLUID [facility] [address] [place] [address] * GLUCOSE,CSF (08/19/2023 2:36 PM [place] AUDITOR) Pathologist [facility] GLUCOSE,CSF 56 40 - 70 mg/dL 08/19/2023 4:08 PM [place] AUDITOR [facility] Cerebrospinal Fluid CEREBROSPINAL FLUID SPECIMEN / Unknown Non-Blood / Unknown 08/19/2023 2:36 PM [place] AUDITOR 08/19/2023 2:50 PM [place] AUDITOR Jozef Murphyjennifer MBBS BODY FLUID [facility] [address] [place] [address] * MR HEAD BRAIN WWO (08/19/2023 1:08 PM [place] AUDITOR) Anatomical Region Laterality Modality BRAIN, HEAD Magnetic Resonan ce 08/19/2023 1:18 PM [place] CITY AUDITOR Impressions 08/19/2023 1:18 PM [place] AUDITOR Unremarkable contrast-enhanced MRI of the brain. Dictated by Jagdish Palma MD @ 08/19/2023 1:18:36 PM (Electronically Signed) Narrative 08/19/2023 1:18 PM COUNTY [place] CITY AUDITOR For Patients: ??As a result of the Cures Act, medical imaging exams and procedure reports are released immediately into your electronic medical record. ??You may view this report before your referring provider. ??If you have questions, please contact your health care provider. INDICATION: Peripheral neuropathy. TECHNIQUE : Multisequence multiplanar MRI of the head before and following administration of 6 mL of gadolinium-based intravenous contrast including sagittal T2/FLAIR imaging. COMPARISON: None available. FINDINGS: Diffusion-weighted imaging demonstrates no evidence of acute or subacute ischemia. There is no abnormal brain parenchymal signal intensity. No focus of abnormal brain parenchymal or leptomeningeal enhancement is identified. The ventricles are normal in size. Flow voids of the larger intracranial arteries are patent. Bone marrow signal intensity of the calvarium is within normal limits. Orbits are unremarkable in appearance. Paranasal sinuses and mastoid air cells are predominantly clear. Procedure Note Ruel Palma MD - 08/19/2023 For Patients: As a result of the Cures Act, medical imagingexams and procedure reports are released immediately into your electronicmedical record. You may view this report before your referring provider.If you have questions, please contact your health care provider. INDICATION: Peripheral neuropathy. TECHNIQUE : Multisequence multiplanar MRI of the head before and followingadministration of 6 mL of gadolinium-based intravenous contrast includingsagittal T2/FLAIR imaging. COMPARISON: None available. FINDINGS: Diffusion-weighted imaging demonstrates no evidence of acute or subacuteischemia. There is no abnormal brain parenchymal signal intensity. Nofocus of abnormal brain parenchymal or leptomeningeal enhancement isidentified. The ventricles are normal in size. Flow voids of the larger intracranialarteries are patent. Bone marrow signal intensity of the calvarium is within normal limits.Orbits are unremarkable in appearance. Paranasal sinuses and mastoid aircells are predominantly clear. IMPRESSION: Unremarkable contrast-enhanced MRI of the brain. Dictated by Jagdish Palma MD @ 08/19/2023 1:18:36 PM (Electronically Signed) Rachael Bhatt MD MR * MR SPINE THORACIC WWO (08/19/2023 1:07 PM [place] AUDITOR) Anatomical Region Laterality Modality Spine, THORACIC SPINE Magnetic R esonance 08/19/2023 1:17 PM [place] AUDITOR Impressions 08/19/2023 1:17 PM [place] AUDITOR Unremarkable MRI of the thoracic spine. Normal cord signal. No suspicious enhancement. Dictated by Tiffany Conway MD @ 08/19/2023 1:17:59 PM (Electronically Signed) Narrative 08/19/2023 1:17 PM [place] OR CITY AUDITOR For Patients: ??As a result of the Century Cures Act, medical imaging exams and procedure reports are released immediately into your electronic medical record. ??You may view this report before your referring provider. ??If you have questions, please contact your health care provider. Indication: Peripheral neuropathy Technique: Multiplanar, multisequence, MRI of the thoracic spine, obtained without and with contrast. A total of 6 mL of Gadavist IV contrast was administered. Comparison: Same-day MRI cervical spine Findings: The normal thoracic kyphosis is preserved. No significant spondylolisthesis. Vertebral body heights are grossly maintained. No evidence of acute osseous abnormality. Intrinsic bone marrow signal appears within normal limits. No suspicious disc bulges or protrusions. No evidence of significant neural foraminal or spinal canal stenosis. The spinal cord appears normal in course, caliber, and intrinsic signal. No concerning post-contrast enhancement identified. The prevertebral and paraspinal soft tissues are unremarkable. Procedure Note Man Tiffany Nieto, - 08/19/2023 For Patients: As a result of the Cures Act, medical imagingexams and procedure reports are released immediately into your electronicmedical record. You may view this report before your referring provider.If you have questions, please contact your health care provider. Indication: Peripheral neuropathy Technique: Multiplanar, multisequence, MRI of the thoracic spine, obtained withoutand with contrast. A total of 6 mL of Gadavist IV contrast wasadministered. Comparison: Same-day MRI cervical spine Findings: The normal thoracic kyphosis is preserved. No significantspondylolisthesis. Vertebral body heights are grossly maintained. Noevidence of acute osseous abnormality. Intrinsic bone marrow signalappears within normal limits. No suspicious disc bulges or protrusions. No evidence of significantneural foraminal or spinal canal stenosis. The spinal cord appears normalin course, caliber, and intrinsic signal. No concerning post-contrastenhancement identified. The prevertebral and paraspinal soft tissues areunremarkable. IMPRESSION: Unremarkable MRI of the thoracic spine. Normal cord signal. No suspiciousenhancement. Dictated by Tiffany Conway MD @ 08/19/2023 1:17:59 PM (Electronically Signed) Rachael Bhatt MD MR * MR SPINE CERVICAL WWO (08/19/2023 1:05 PM [place] AUDITOR) Anatomical Region Laterality Modality Spine, CERVICAL SPINE Magnetic R esonance 08/19/2023 1:17 PM [place] CITY AUDITOR Impressions 08/19/2023 1:17 PM [place] AUDITOR Unremarkable contrast-enhanced MRI of the cervical spine. No foci of abnormal intraspinal enhancement of the cervical spine. Dictated by Nabor Grande MD @ 08/19/2023 1:17:41 PM (Electronically Signed) Narrative 08/19/2023 1:17 PM [place] CITY AUDITOR For Patients: ??As a result of the Cures Act, medical imaging exams and procedure reports are released immediately into your electronic medical record. ??You may view this report before your referring provider. ??If you have questions, please contact your health care provider. INDICATION: Peripheral neuropathy. TECHNIQUE: Multiplanar multisequential MRI cervical spine with sagittal T1, T2, STIR and axial GRE sequences was performed with and without the use of intravenous contrast. 6 mL of Gadavist was administered intravenously. COMPARISON: None. FINDINGS: Nonspecific straightening of the normal cervical lordosis. The vertebral body heights maintained their normal height. No abnormal marrow signal abnormality. No acute fractures or traumatic subluxation identified. The intervertebral disc spaces are preserved. No significant disc herniation or spinal canal stenosis at any cervical spinal level. No significant neural foraminal stenosis. The facet joints are unremarkable. The cervical spinal cord is normal in caliber and demonstrates normal signal characteristics. No abnormal cord edema identified. No abnormal enhancement of the intraspinal contents following the administration of intravenous contrast. The cerebellar tonsils are in normal position. No prevertebral soft tissue edema. The paraspinal soft tissues are unremarkable. Procedure Note HarjinderNabor, DO - 08/19/2023 For Patients: As a result of the Cures Act, medical imagingexams and procedure reports are released immediately into your electronicmedical record. You may view this report before your referring provider.If you have questions, please contact your health care provider. INDICATION: Peripheral neuropathy. TECHNIQUE: Multiplanar multisequential MRI cervical spine with sagittal T1, T2, STIRand axial GRE sequences was performed with and without the use ofintravenous contrast. 6 mL of Gadavist was administered intravenously. COMPARISON: None. FINDINGS: Nonspecific straightening of the normal cervical lordosis. The vertebralbody heights maintained their normal height. No abnormal marrow signalabnormality. No acute fractures or traumatic subluxation identified. The intervertebral disc spaces are preserved. No significant discherniation or spinal canal stenosis at any cervical spinal level. Nosignificant neural foraminal stenosis. The facet joints are unremarkable. The cervical spinal cord is normal in caliber and demonstrates normalsignal characteristics. No abnormal cord edema identified. No abnormalenhancement of the intraspinal contents following the administration ofintravenous contrast. The cerebellar tonsils are in normal position. No prevertebral soft tissue edema. The paraspinal soft tissues areunremarkable. IMPRESSION: Unremarkable contrast-enhanced MRI of the cervical spine. No foci ofabnormal intraspinal enhancement of the cervical spine. Dictated by Nabor Grande MD @ 08/19/2023 1:17:41 PM (Electronically Signed) Rachael Bhatt MD MR * SEDIMENTATION RATE (08/19/2023 6:24 AM [place] AUDITOR) SEDIMENTATION RATE 10 <20 mm/hr 2022 6:41 AM [place] CITY AUDITOR [facility] Blood BLOOD SPECIMEN / Unknown Butterfly / Unknown 08/19/2023 6:24 AM [place] CITY AUDITOR 08/19/2023 6:36 AM [place] AUDITOR Jozef BOURGEOIS HEMATOLOGY [facility] [address] [place] [address] * ANTINUCLEAR ANTIBODY BY IFA (08/19/2023 6:24 AM [place] AUDITOR) ANTINUCLEAR ANTIBODY (JUN) Negative Negative 08/20/2023 10:32 AM [place] CITY AUDITOR [facility] [facility] Blood BLOOD SPECIMEN / Unknown Butterfly / Unknown 08/19/2023 6:24 AM [place] AUDIT[place] 08/19/2023 6:37 AM [place] AUDIT[place] Narrative [facility] - 08/20/2023 10:32 AM [place] AUDIT[place] Method: JUN screen performed by (IFA) on HEP-2 substrate, IgG Jozef BOURGEOIS CHEMISTRY [facility] [address] [place] [address], * ANCA PANEL FOR VASCULITIS (08/19/2023 6:24 AM [place] AUDITOR) ANCA Negative Negative 08/21/2023 1:33 PM [place] AUDITOR [facility] Blood BLOOD SPECIMEN / Unknown Butterfly / Unknown 08/19/2023 6:24 AM [place] AUDITOR 08/19/2023 6:37 AM [place] AUDITOR Jozef Mistry [facility] SEND OUTS [facility] [address] [place] [address], * DNA DOUBLE-STRANDED (DSDNA) ANTIBODIES BY CRITHIDIA LUCILIAE IFA (08/19/2023 6:24 AM [place] OR [place] AUDITOR) ANTI[place]EST [place] DNA Negative Negative 08/20/2023 10:33 AM [place] AUD[facility] Blood BLOOD SPECIMEN / Unknown Butterfly / Unknown 08/19/2023 6:24 AM [place] AUDITOR 08/19/2023 6:37 AM [place] AUDITOR Narrative [facility] - 08/20/2023 10:33 AM [place] AUDITOR Method: DNA Double-Stranded (dsDNA) Antibodies by Crithidia luciliae IFA, IgG, Serum Jozef LANGSTON SEND OUTS Performing Organization Address City/[facility]/ZIP Co de Phone Number [facility] [address] [place] [address], * MULTIPLE SCLEROSIS SCN SERUM (08/18/2023 2:46 PM [place] AUDITOR) IGG CSF 1.69 <=3.40 mg/dL 08/20/2023 2:21 PM [place] AUDITOR [facility] ALBUMIN,CSF 12.75 <=35.00 mg/dL 08/20/2023 2:21 PM [place] AUDITOR [facility] IGG 1,228.98 610.30 - 1,616.00 mg/dL 08/20/2023 2:21 PM [place] AUDITOR [facility] ALBUMIN,SERUM IMMUNO 4,881.99 3,500.00 - 5,200.00 mg/dL 08/20/2023 2:21 PM [place] AUDITOR [facility] IGG INDEX 0.53 0.30 - 0.60 08/20/2023 2:21 PM [place] AUDITOR [facility] IGG SYNTHESIS <0.00 <=8.00 mg/day 08/20/2023 2:21 PM [place] AUDITOR [facility] OLIGOCLONAL BANDS Absent Absent 08/20/2023 2:21 PM [place] AUDITOR [facility] ELP INTERPRETATION ,CSF/SERUM Study within normal limits. No evidence of a demyelinating disease process. Interpreted and electronically signed by: Daniella Ashley MD 08/20/2023 2:21 PM [place] AUDITOR [facility] PROTEIN CSF,TOTAL 25 15 - 45 mg/dL 08/20/2023 2:21 PM [place] AUDIT[facility] Blood BLOOD SPECIMEN / Unknown Butterfly / Unknown 08/18/2023 2:46 PM [place] AUDITOR 08/18/2023 2:51 PM [place] AUDITOR Jozef BOURGEOIS CHEMISTRY Performing Organization Address City/[facility]/ZIP Co de Phone Number [facility] [address] [place] [address], * C-REACTIVE PROTEIN (08/18/2023 2:46 PM [place] AUDITOR) Pathologist [facility] C-REACTIVE PROTEIN <0.3 <0.5 mg/dL 08/18/2023 3:13 PM [place] AUDITOR [facility] Blood BLOOD SPECIMEN / Unknown Butterfly / Unknown 08/18/2023 2:46 PM [place] AUDITOR 08/18/2023 2:51 PM [place] AUDITOR Jozef BOURGEOIS CHEMISTRY [facility] [address] [place], [place] [id number] * (ABNORMAL) CBC WITH AUTO DIFFERENTIAL (08/18/2023 3:35 AM [place] AUDITOR) WHITE BLOOD COUNT 11.7(H) 4.5 - 11.0 thou/cu mm 08/18/2023 3:42 AM [place] AUDITOR [facility] RED BLOOD COUNT 4.85 4.00 - 5.20 mil/cu mm 08/18/2023 3:42 AM [facility] HEMOGLOBIN 15.2 12.0 - 16.0 g/dL 08/18/2023 3:42 AM [facility] HEMATOCRIT 44.7 33.0 - 51.0 % 08/18/2023 3:42 AM [facility] MCV 92 80 - 100 fL 08/18/2023 3:42 AM [facility] MCH 31.3 26.0 - 34.0 pg 08/18/2023 3:42 AM [facility] MCHC 34.0 32.0 - 36.0 g/dL 08/18/2023 3:42 AM [facility] RDW 12.4 11.5 - 15.5 % 08/18/2023 3:42 AM [facility] PLATELET COUNT 274 140 - 440 thou/cu mm 08/18/2023 3:42 AM [facility] MPV 8.4 6.5 - 11.0 fL 08/18/2023 3:42 AM [facility] % NEUT 77.5 % 08/18/2023 3:42 AM [facility] % LYMPH 16.5 % 08/18/2023 3:42 AM [facility] % MONO 4.9 % 08/18/2023 3:42 AM [facility] % EOS 0.8 % 08/18/2023 3:42 AM [facility] % BASO 0.3 % 08/18/2023 3:42 AM [facility] ABSOLUTE NEUTROPHILS 9.1(H) 1.7 - 7.0 thou/cu mm 08/18/2023 3:42 AM [facility] ABSOLUTE LYMPHOCYTES 1.9 0.9 - 2.9 thou/cu mm 08/18/2023 3:42 AM [facility] ABSOLUTE MONOCYTES 0.6 <0.9 thou/cu mm 08/18/2023 3:42 AM [facility] ABSOLUTE EOSINOPHILS 0.1 <0.5 thou/cu mm 08/18/2023 3:42 AM [facility] ABSOLUTE BASOPHILS 0.0 <0.3 thou/cu mm 08/18/2023 3:42 AM [place] AUDITOR [facility] Blood BLOOD SPECIMEN / Unknown Butterfly / Unknown 08/18/2023 3:35 AM [place] AUDITOR 08/18/2023 3:39 AM [place] AUDITOR Rachael Bhatt MD HEMATOLOG Y Performing Organization Address [facility] de Phone Number [facility] [address] [place] [address] * TSH (08/18/2023 3:35 AM [place] AUDITOR) TSH 2.86 0.27 - 4.20 uIU/mL 08/18/2023 4:05 AM [place] AUDITOR [facility] Blood BLOOD SPECIMEN / Unknown Butterfly / Unknown 08/18/2023 3:35 AM [place] AUDITOR 08/18/2023 3:39 AM [place] AUDITOR Narrative [facility] - 08/18/2023 4:05 AM [place] AUDITOR In Adults, TSH values between 5.00 and 10.00 uIU/ml do not necessarily indicate the presence of Hypothyroidism. Correlation with clinical findings such as presence of goiter and/or Thyroperoxidase (TPO) Antibody may be helpful. For more information please refer to BHARTI 2004; 291: 228-238. Rachael Bhatt MD CHEMISTRY Performing Organization Address [facility] Co de Phone Number [facility] [address] [place] [phone] * FOLIC ACID (08/18/2023 3:35 AM [place] AUDITOR) FOLIC ACID 10.5 4.6 - 34.8 ng/mL 08/18/2023 1:06 PM [place] AUDITOR [facility] Blood BLOOD SPECIMEN / Unknown Butterfly / Unknown 08/18/2023 3:35 AM [place] AUDITOR 08/18/2023 3:39 AM [place] AUDITOR N[facility]ative [facility] 08/18/2023 1:06 PM [place] AUDITOR Biotin supplements may cause clinically significant interference for this test assay. ??If interference is suspected, it is strongly recommended that biotin is discontinued for at least one week prior to retesting. Rachael Bhatt MD CHEMISTRY Performing Organization Address City/[facility]/ZIP Co de Phone Number [facility] [address] [place] [address], * VITAMIN B12 (08/18/2023 3:35 AM [place] AUDITOR) VITAMIN B12 641 232 - 1,245 pg/mL 08/18/2023 1:06 PM [facility] Blood BLOOD SPECIMEN / Unknown Butterfly / Unknown 08/18/2023 3:35 AM [place] AUDITOR 08/18/2023 3:39 AM [place] AUDITOR Narrative [facility] - 08/18/2023 1:06 PM [place] CITY AUDITOR Biotin supplements may cause clinically significant interference for this test assay. ??If interference is suspected, it is strongly recommended that biotin is discontinued for at least one week prior to retesting. Rachael Bhatt MD CHEMISTRY Performing Organization Address [facility] Co de Phone Number [facility] [address] [place] [address], * (ABNORMAL) COMP METABOLIC PANEL (08/18/2023 3:35 AM [place] OR CITY AUDITOR) SODIUM 138 136 - 145 mmol/L 08/18/2023 4:05 AM [facility] POTASSIUM 4.1 3.5 - 5.1 mmol/L 08/18/2023 4:05 AM [facility] CHLORIDE 102 98 - 107 mmol/L 08/18/2023 4:05 AM [facility] CO2,TOTAL 25 22 - 29 mmol/L 08/18/2023 4:05 AM [facility] ANION GAP 11 5 - 18 08/18/2023 4:05 AM [facility] GLUCOSE 88 70 - 99 mg/dL 08/18/2023 4:05 AM [facility] CALCIUM 9.8 8.6 - 10.0 mg/dL 08/18/2023 4:05 AM [facility] BUN 13 6 - 20 mg/dL 08/18/2023 4:05 AM [facility] CREATININE 0.76 0.50 - 0.90 mg/dL 08/18/2023 4:05 AM [facility] BUN/CREAT RATIO 17 10 - 20 3 4:05 AM [facility] eGFR >90 >90 mL/min/1.7 3m2 08/18/2023 4:05 AM [facility] Comment:As of 2021, eG FR is calculated by the CKD-EPI creatinine equation without race adjustment. ??eGFR can be influenced by muscle mass, exercise, and diet. ??The reported eGFR is an estimation only and is only applicable if the renal function is stable. ALBUMIN 5.1(H) 4.0 - 4.9 g/dL 08/18/2023 4:05 AM [facility] PROTEIN,TOTAL 8.4(H) 6.0 - 8.0 g/dL 08/18/2023 4:05 AM [facility] BILIRUBIN,TOTAL 0.5 0.0 - 1.2 mg/dL 08/18/2023 4:05 AM [facility] ALK PHOSPHATASE 72 35 - 104 IU/L 08/18/2023 4:05 AM [facility] ALT (SGPT) 10 10 - 35 IU/L 08/18/2023 4:05 AM [facility] AST (SGOT) 15 10 - 35 IU/L 08/18/2023 4:05 AM [facility] Blood BLOOD SPECIMEN / Unknown Butterfly / Unknown 08/18/2023 3:35 AM [place] AUDITOR 08/18/2023 3:39 AM [place] AUDITOR Rachael Bhatt MD CHEMISTRY [facility] [address] [place] [address] from Last 3 Months Advance Directives Latest Code Status on File Code Status Date Activated Date Inactivated Comments Full Code 08/18/2023 11:57 AM 08/20/2023 6:12 PM Question Answer Comments Code Status Discussion: Reviewed Preferences Care Teams Business Systems Lead Relationship Specialty Start Date End Date None . PCP - General 08/18/23 Pcp, No . 08/18/23
== END 2023-10-02 11:42 | disposition home or self-care (01) ==
LOC: NFLDREF 10-12 19:44
PROVIDERS: PCP Nurse Practitioner Family; Referring Provider Nurse Practitioner Family; Visit Provider Advanced Practice Midwife
DX: Z01.419 Encounter for gynecological examination (general) (routine) without abnormal findings (principal); Z13.6 Encounter for screening for cardiovascular disorders; Z13.1 Encounter for screening for diabetes mellitus; Z12.4 Encounter for screening for malignant neoplasm of cervix; Z78.9 Other specified health status
CPT/HCPCS: 80061

== ENCOUNTER 2024-01-13 12:44 | Outpatient (CLI) | payer OTHER, SELFPAY ==
--- OUTSIDE RECORDS SUMMARY | 2024-01-13 12:46 | XMS_ITS | Referral Summary ---
Author Name Unknown Organization [facility] Address [address] [place] [id number] Care Team Providers Care Retail Sales Manager Name Role Phone Doctor, No Primary Care Provider Unavailabl e Allergies No known active allergies Medications No [...] Comments Blood Pressure 114/70 08/25/2023 1:14 PM FACILITIES FLIGHT CHECK PILOT Pulse - - Temperature - - Respiratory Rate - - Oxygen Saturation - - Inhaled Oxygen Concentration - - Weight 56.7 kg (125 lb) 08/25/2023 1:14 PM FACILITIES FLIGHT CHECK PILOT Height 165.1 cm (5' 5) 08/25/2023 1:14 PM FACILITIES FLIGHT CHECK PILOT Body Mass Index 20.8 08/25/2023 1:14 PM FACILITIES FLIGHT CHECK PILOT Plan of Treatment Not on file Care Teams Retail Sales Manager Relationship Specialty Start Date End Date Doctor, No No ad PCP - General Radiology 08/25/23
--- OUTSIDE RECORDS SUMMARY | 2024-01-13 12:46 | XMS_ITS | Clinical Summary ---
Author Name Unknown Organization [facility] Address [place], [place] [address] Care Team Providers Care Fashion Supervisor Name Role Phone None Primary Care Provider Unavailabl e Pcp, No Unavailable Unavailable Allergies No known active allergies Medications Medication Sig Dispensed Refills Start Date End Date Status ondansetron (ZOFRAN ODT) 4 mg disintegrating tabletIndications:Morni ng sickness Place 2 Tablets (8 mg) on the tongue two times daily. 20 Tablet 01/03/2024 Active metoclopramide HCl (REGLAN) 10 mg tabletIndications:Stephanni ng sickness Take 1 Tablet (10 mg) by mouth 3 times daily if needed for Nausea/Vomiting . 20 Tablet 01/03/2024 Active Active Problems Problem Noted Date Diagnosed Date Paresthesia 08/18/2023 Tobacco dependence 04/11/2019 Changing pigmented skin lesion 12/14/2017 Comments Yes Encounters Date Type Department Care Team Description 01/03/2024 12:02 PM CDT - 01/03/2024 2:09 PM CDT Emergency [facility] [address] [facility] [place] [address] Tano Renee PA Morning sickness (Primary Dx); Less than 8 weeks gestation of Discharge Disposition: Home Self Care 01/03/2024 Travel from Last 3 Months Immunizations Name [...] Housing in the Last Year 1 08/18/2023 Comments Yes Sex and Gender Information Value Date Recorded Sex Assigned at Not on file Gender Identity Not on file Sexual Orientation Not on file Obstetrics History Para Term AB IAB SAB Ectopic Multiple Livin g Live Births 1 Date Outcome GA Total Labor Labor/2nd/3rd Weight Sex Delivery Anes PTL Do A1 A5 Name Cl in Current Last Filed Vital Signs Vital Sign Reading Time Taken Comments Blood Pressure 108/62 01/03/2024 2:09 PM CDT Pulse 73 01/03/2024 2:09 PM CDT Temperature 36.6 ??C (97.8 ??F) 01/03/2024 12:04 PM C DT Respiratory Rate 18 01/03/2024 12:04 PM CDT Oxygen Saturation 99% 01/03/2024 2:09 PM CDT Inhaled Oxygen Concentration - - Weight 57.6 kg (127 lb) 01/03/2024 12:04 PM CDT Height 165.1 cm (5' 5) 01/03/2024 12:04 PM CDT Body Mass Index 21.13 01/03/2024 12:04 PM CDT Plan of Treatment Health Maintenance Due Date Last Done Comments Tdap 2006 Tetanus booster 2015 BMI (ht and wt on same day) for age 18+ 04/11/2020 04/11/2019, 11/13/2017, 11/08/2015 Depression screening for age 12+ 04/11/2020 04/11/2019 COVID-19 vaccine series ( season) 2023 05/23/2022, 05/01/2022 Influenza for age 9-49 06/05/2024 10/19/2009 Pap test for age 21-65 10/02/2026 3, 10/02/2023, 04/05/2018 HIV for age 15-65 Completed 11/08/2015 Hepatitis C screening for ag e 18-79 Completed 11/08/2015 Pneumococcal series for age 6-64 Aged Out No longer eligible b ased on patient's age to complete this topic Procedures Procedure Name Priority Date/Time Associated Diagnosis Comments URINALYSIS MICROSCOPIC STAT 01/03/2024 1:50 PM CDT UA W/ SEDIMENT EXAM REFLEXED PER CRITERIA STAT 01/03/2024 1:50 PM CDT CBC WITH AUTO DIFFERENTIAL STAT 01/03/2024 12:20 PM CDT BASIC METABOLIC PANEL STAT 01/03/2024 12:20 PM CDT CBC WITH AUTO DIFFERENTIAL STAT 01/03/2024 12:20 PM CDT HPV THIN PREP Routine 10/02/2023 11:30 AM PARK KEEPER ANTI HIV 1/2 Routine 11/08/2015 3:42 PM PARK KEEPER Screening for STD (sexually transmitted disease) ANTI HCV Routine 11/08/2015 3:42 PM PARK KEEPER Screening for STD (sexually transmitted disease) from Last 3 Months or Most Recently Relevant to Health Maintenance Results * (ABNORMAL) URINALYSIS MICROSCOPIC (01/03/2024 1:50 PM CDT) RBC 0-2 0-2, None Seen /HPF 01/03/2024 2:00 PM CDT [facility] WBC 3-5 0-2, 3-5, None Seen /HPF 01/03/2024 2:00 PM [facility] BACTERIA Few None Seen, Rare, Few Bacteria/ HPF 01/03/2024 2:00 PM [facility] EPITHELIAL CELLS Moderate(A) None Seen, Few Epi/HPF 01/03/2024 2:00 PM [facility] Mucus Present 01/03/2024 2:00 PM [facility] Urine URINE SPECIMEN / Unknown Non-Blood / Unknown 01/03/2024 1:50 PM CDT 01/03/2024 1:53 PM CDT Tano DOSS URINE [facility] [address] [place] [id number] * (ABNORMAL) UA W/ SEDIMENT EXAM REFLEXED PER CRITERIA (01/03/2024 1:50 PM CDT) COLOR Yellow Yellow Color 01/03/2024 1:56 PM [facility] CLARITY Slightly Cloudy(A) Clear Clarity 01/03/2024 1:56 PM [facility] SPECIFIC GRAVITY,URINE 1.025 1.010, 1.015, 1.020, 1.025 01/03/2024 1:56 PM [facility] PH,URINE 6.0 6.0, 7.0, 8.0, 5.5, 6.5, 7.5, 8.5 01/03/2024 1:56 PM [facility] UROBILINOGEN, QUALITATIVE Normal Normal EU/dl 01/03/2024 1:56 PM [facility] PROTEIN, URINE Negative Negative mg/dL 01/03/2024 1:56 PM [facility] GLUCOSE, URINE Negative Negative mg/dL 01/03/2024 1:56 PM [facility] KETONES,URINE >=80(A) Negative mg/dL 01/03/2024 1:56 PM [facility] BILIRUBIN,URI NE Negative Negative 01/03/2024 1:56 PM [facility] OCCULT BLOOD,URINE Negative Negative 01/03/2024 1:56 PM T [facility] NITRITE Negative Negative 01/03/2024 1:56 PM CDT [facility] LEUKOCYTE ESTERASE Trace(A) Negative 01/03/2024 1:56 PM [facility] Urine URINE SPECIMEN / Unknown Non-Blood / Unknown 01/03/2024 1:50 PM CDT 01/03/2024 1:53 PM CDT Tano DOSS URINE [facility] [address] [place] [address] * (ABNORMAL) CBC WITH AUTO DIFFERENTIAL (01/03/2024 12:20 PM CDT) WHITE BLOOD COUNT 10.4 4.5 - 11.0 thou/cu mm 01/03/2024 12:26 PM [facility] RED BLOOD COUNT 4.77 4.00 - 5.20 mil/cu mm 01/03/2024 12:26 PM [facility] HEMOGLOBIN 14.8 12.0 - 16.0 g/dL 01/03/2024 12:26 PM [facility] HEMATOCRIT 43.7 33.0 - 51.0 % 01/03/2024 12:26 PM [facility] MCV 92 80 - 100 fL 01/03/2024 12:26 PM [facility] MCH 31.0 26.0 - 34.0 pg 01/03/2024 12:26 PM [facility] MCHC 33.9 32.0 - 36.0 g/dL 01/03/2024 12:26 PM [facility] RDW 12.0 11.5 - 15.5 % 01/03/2024 12:26 PM [facility] PLATELET COUNT 294 140 - 440 thou/cu mm 01/03/2024 12:26 PM [facility] MPV 8.2 6.5 - 11.0 fL 01/03/2024 12:26 PM T [facility] % NEUT 81.3 % 01/03/2024 12:26 PM T [facility] % LYMPH 13.3 % 01/03/2024 12:26 PM [facility] % MONO 5.1 % 01/03/2024 12:26 PM [facility] % EOS 0.1 % 01/03/2024 12:26 PM [facility] % BASO 0.2 % 01/03/2024 12:26 PM [facility] ABSOLUTE NEUTROPHILS 8.5(H) 1.7 - 7.0 thou/cu mm 01/03/2024 12:26 PM [facility] ABSOLUTE LYMPHOCYTES 1.4 0.9 - 2.9 thou/cu mm 01/03/2024 12:26 PM [facility] ABSOLUTE MONOCYTES 0.5 <0.9 thou/cu mm 01/03/2024 12:26 PM [facility] ABSOLUTE EOSINOPHILS 0.0 <0.5 thou/cu mm 01/03/2024 12:26 PM [facility] ABSOLUTE BASOPHILS 0.0 <0.3 thou/cu mm 01/03/2024 12:26 PM [facility] Blood BLOOD SPECIMEN / Unknown Venipuncture / Unknown 01/03/2024 12:20 PM CDT 01/03/2024 12:23 PM CDT Tano DOSS HEMATOLOGY [facility] [address] [place] [address] * BASIC METABOLIC PANEL (01/03/2024 12:20 PM CDT) SODIUM 138 136 - 145 mmol/L 01/03/2024 12:43 PM CDT [facility] POTASSIUM 3.9 3.5 - 5.1 mmol/L 01/03/2024 12:43 PM [facility] CHLORIDE 104 98 - 107 mmol/L 01/03/2024 12:43 PM [facility] CO2,TOTAL 23 22 - 29 mmol/L 01/03/2024 12:43 PM [facility] ANION GAP 11 5 - 18 01/03/2024 12:43 PM [facility] GLUCOSE 86 70 - 99 mg/dL 01/03/2024 12:43 PM [facility] CALCIUM 9.7 8.6 - 10.0 mg/dL 01/03/2024 12:43 PM [facility] BUN 8 6 - 20 mg/dL 01/03/2024 12:43 PM [facility] CREATININE 0.77 0.50 - 0.90 mg/dL 01/03/2024 12:43 PM [facility] BUN/CREAT RATIO 10 10 - 20 12:43 PM [facility] eGFR >90 >90 mL/min/1.7 3m2 01/03/2024 12:43 PM [facility] Comment:As of 2021, eG FR is calculated by the CKD-EPI creatinine equation without race adjustment. ??eGFR can be influenced by muscle mass, exercise, and diet. ??The reported eGFR is an estimation only and is only applicable if the renal function is stable. Blood BLOOD SPECIMEN / Unknown Venipuncture / Unknown 01/03/2024 12:20 PM CDT 01/03/2024 12:23 PM T Tano DOSS CHEMISTRY [facility] [address] [place] [address] * HPV HIGH RISK (10/02/2023 11:30 AM PARK KEEPER) TYPE 16 Negative Negative 10/08/2023 2:27 PM PARK KEEPER [facility] TRAL LABORATORY TYPE 18 Negative Negative 10/08/2023 2:27 PM PARK KEEPER [facility] TRAL LABORATORY OTHER HIGH RISK TYPES Negative Negative 10/08/2023 2:27 PM PARK KEEPER [facility] Other (Cervical) 10/02/2023 11:30 AM PARK KEEPER 10/07/2023 10:06 AM PARK KEEPER Narrative [facility] - 10/08/2023 2:27 PM PARK KEEPER HPV types 16, 18, 31, 33, 35, 39, 45, 51, 52, 56, 58, 59, 66 and 68 DNA were undetectable or below the pre-set threshold. Methodology: Liza Brynn 4800 HPV Test Demi Parnell CNM MICROBIOLOGY [facility] [address] [place] [address], * ANTI HCV (11/08/2015 3:42 PM PARK KEEPER) HEPATITIS C ANTIBODY Non-Reacti ve Non-Reacti ve 11/08/2015 7:07 PM P[facility] KEEPER [facility] Blood specimen (specimen) BLOOD SPECIMEN / Unknown Venipuncture / Unknown 11/08/2015 3:42 PM PARK KEEPER 11/08/2015 3:42 PM PARK KEEPER [facility] - 11/08/2015 7:07 PM PARK KEEPER Antibodies to HCV not detected; does not exclude the possibility of exposure to HCV. Katie Lundberg SURGICAL ONCOLOGIST SEND OUTS Performing Organization Address City/[facility]/ZIP Co de Phone Number [facility] [address] [place] [address], * ANTI HIV 1/2 (11/08/2015 3:42 PM PARK KEEPER) HIV-1/HIV-2 ANTIBODY Non-Reacti ve Non-Reacti ve 11/08/2015 7:01 PM P[facility] KEEPER [facility] Blood specimen (specimen) BLOOD SPECIMEN / Unknown Venipuncture / Unknown 11/08/2015 3:42 PM PARK KEEPER 11/08/2015 3:42 PM PARK KEEPER Narrative [facility] - 11/08/2015 7:01 PM PARK KEEPER HIV-1 p24 and HIV-1/HIV-2 Ab not detected Katie Lundberg SURGICAL ONCOLOGIST SEND OUTS [facility] [address] [place] [address], from Last 3 Months or Most Recently Relevant to Health Maintenance Advance Directives * Full Code (Latest Code Status on File) Date Activated Date Inactivated Comments 08/18/2023 11:57 AM 08/20/2023 6:12 PM Question Answer Comments Code Status Discussion: Reviewed Preferences Care Teams Fashion Supervisor Relationship Specialty Start Date End Date None . PCP - General 08/18/23 Pcp, No . 08/18/23
--- OUTSIDE RECORDS SUMMARY | 2024-01-13 12:46 | XMS_ITS | Clinical Summary ---
Author Name Unknown Organization [facility] Address [address] [place] [address] Care Team Providers Care Oil Drilling Engineer Name Role Phone Doctor, No Primary Care [...] Comments Blood Pressure 114/70 08/25/2023 1:14 PM LINEN ROOM ATTENDANT Pulse - - Temperature - - Respiratory Rate - - Oxygen Saturation - - Inhaled Oxygen Concentration - - Weight 56.7 kg (125 lb) 08/25/2023 1:14 PM LINEN ROOM ATTENDANT Height 165.1 cm (5' 5) 08/25/2023 1:14 PM LINEN ROOM ATTENDANT Body Mass Index 20.8 08/25/2023 1:14 PM LINEN ROOM ATTENDANT Plan of Treatment Health Maintenance Due Date Last Done Comments Hepatitis C Screening 1995 Pap Smear 1995 Anxiety Screening (JESSICA-2) 1996 Depression Assessment (PHQ-2) 1996 Pneumococcal <65 (1 of 2 - PCV) 2001 Adult Tetanus Booster 2014 COVID-19 Vaccine (3 - 2022- season) 2023, 05/01/2022 Influenza Vaccine (Season Ended) 2024 10/19/19 10 Care Teams Oil Drilling Engineer Relationship Specialty Start Date End Date Doctor, No No ad PCP - General Radiology 08/25/23
--- NOTE | 2024-01-13 13:00 | US_ITS ---
Patient: CHITO WEIR Facility:?[facility] RIS Patient ID:?[id number] Site Patient ID:?[id number]. Site :?1995 Study:?US-OB Pelvis DATING AND VIABILITY-01/13/2024 1:21:27 PM Ordering Physician:?BERENICE SANTOS Final Report: INDICATION: First trimester scan, establish dates. COMPARISON: None. TECHNIQUE: Real-time rdz-scale imaging of the pelvis was performed. FINDINGS: Sonographic imaging demonstrates a single living intrauterine gestation. The embryo demonstrates a regular cardiac rate measuring 155 beats per minute. The embryo`s crown-rump length measurement of 1.4 cm corresponds to a gestational age of 7 weeks 4 days with a sonographic due date of 08/27/2024. There is a normal-appearing yolk sac. There are no gross abnormalities noted within the embryo at this early state of development. The gestational sac has a normal appearance. There is no evidence of a perigestational hemorrhage. The amount of fluid within the sac appears appropriate for gestational age. The cervix is closed. The myometrium appears normal. Simple cyst left ovary measures 4.1 x 2.6 x 3.4 cm. Normal right ovary. There are no suspicious fluid collections noted in the cul-de-sac. IMPRESSION: Single living intrauterine with sonographic gestational age 7 weeks 4 days and sonographic due date of 08/27/2024. Dictated by Teddy King MD @ 01/14/2024 9:53:52 AM Signed by:?Teddy King MD @01/14/2024 9:53:52 AM (Electronic Signature)
== END 2024-01-13 12:45 | disposition home or self-care (01) ==
LOC: US 12:45
PROVIDERS: PCP Nurse Practitioner Family; Visit Provider Registered Nurse
DX: Z34.91 Encounter for supervision of normal pregnancy, unspecified, first trimester (principal); Z3A.01 Less than 8 weeks gestation of pregnancy
CPT/HCPCS: 76817; 87086

== ENCOUNTER 2024-03-09 11:09 | Outpatient (CLI) | payer OTHER, SELFPAY ==
--- OUTSIDE RECORDS SUMMARY | 2024-03-09 11:11 | XMS_ITS | Clinical Summary ---
Author Organization [facility] Address [address] [place] [address] Care Team Providers Care Rampman Name Role Phone Doctor, No Primary Care [...] Comments Blood Pressure 114/70 08/25/2023 1:14 PM TEST ENGINEERING TECHNICIAN Pulse - - Temperature - - Respiratory Rate - - Oxygen Saturation - - Inhaled Oxygen Concentration - - Weight 56.7 kg (125 lb) 08/25/2023 1:14 PM TEST ENGINEERING TECHNICIAN Height 165.1 cm (5' 5) 08/25/2023 1:14 PM TEST ENGINEERING TECHNICIAN Body Mass Index 20.8 08/25/2023 1:14 PM TEST ENGINEERING TECHNICIAN Plan of Treatment Health Maintenance Due Date Last Done Comments Hepatitis C Screening 1995 Pap Smear 1995 Anxiety Screening (JESSICA-2) 1996 Depression Assessment (PHQ-2) 1996 Pneumococcal <65 (1 of 2 - PCV) 2001 Adult Tetanus Booster 2014 COVID-19 Vaccine (3 - season) 2023, 05/01/2022 Influenza Vaccine (Season Ended) 2024 10/19/19 10 Care Teams Rampman Relationship Specialty Start Date End Date Doctor, No No ad PCP - General Radiology 08/25/23
--- OUTSIDE RECORDS SUMMARY | 2024-03-09 11:11 | XMS_ITS | Referral Summary ---
Author Organization [facility] Address [address] [place] [address] Care Team Providers Care Tear Down Worker Name Role Phone Doctor, No Primary Care [...] Comments Blood Pressure 114/70 08/25/2023 1:14 PM RAIL CAR PAINTER/SANDBLASTER Pulse - - Temperature - - Respiratory Rate - - Oxygen Saturation - - Inhaled Oxygen Concentration - - Weight 56.7 kg (125 lb) 08/25/2023 1:14 PM RAIL CAR PAINTER/SANDBLASTER Height 165.1 cm (5' 5) 08/25/2023 1:14 PM RAIL CAR PAINTER/SANDBLASTER Body Mass Index 20.8 08/25/2023 1:14 PM RAIL CAR PAINTER/SANDBLASTER Plan of Treatment Not on file Care Teams Tear Down Worker Relationship Specialty Start Date End Date Doctor, No No ad PCP - General Radiology 08/25/23
--- OUTSIDE RECORDS SUMMARY | 2024-03-09 11:12 | XMS_ITS | Clinical Summary ---
Author Organization [facility] Address [place], [place] [address] Care Team Providers Care Medical Imaging Tech Name Role Phone None Primary Care Provider Unavailabl e Pcp, No Unavailable Unavailable Allergies No known active allergies Medications Medication Sig Dispensed Refills Start Date End Date Status ondansetron (ZOFRAN ODT) 4 mg disintegrating tabletIndications:Morni ng sickness Place 2 Tablets (8 mg) on the tongue two times daily. 20 Tablet 01/03/2024 Active metoclopramide HCl (REGLAN) 10 mg tabletIndications:Morni ng sickness Take 1 Tablet (10 mg) by mouth 3 times daily if needed for Nausea/Vomiting . 20 Tablet 01/03/2024 Active Active Problems Problem Noted Date Diagnosed Date Paresthesia 08/18/2023 Tobacco dependence 04/11/2019 Changing pigmented skin lesion 12/14/2017 Comments Yes Encounters Date Type Department Care Team Description 01/03/2024 12:02 PM CDT - 01/03/2024 2:09 PM CDT [facility] [address] [facility] [place] [address] Tano Renee PA Morning sickness (Primary Dx); [...] HPV THIN PREP Routine 10/02/2023 11:30 AM JOB SITE SUPERINTENDENT ANTI HIV 1/2 Routine 11/08/2015 3:42 PM JOB SITE SUPERINTENDENT Screening for STD (sexually transmitted disease) ANTI HCV Routine 11/08/2015 3:42 PM JOB SITE SUPERINTENDENT Screening for STD (sexually transmitted disease) from Last 3 Months or Most Recently Relevant to Health Maintenance Results * (ABNORMAL) URINALYSIS MICROSCOPIC (01/03/2024 1:50 PM CDT) RBC 0-2 0-2, None Seen /HPF 01/03/2024 2:00 PM CDT [facility] WBC 3-5 0-2, 3-5, None Seen /HPF 01/03/2024 2:00 PM CDT [facility] BACTERIA Few None Seen, Rare, Few Bacteria/ HPF 01/03/2024 2:00 PM T [facility] EPITHELIAL CELLS Moderate(A) None Seen, Few Epi/HPF 01/03/2024 2:00 PM T [facility] Mucus Present 01/03/2024 2:00 PM T [facility] Urine URINE SPECIMEN / Unknown Non-Blood / Unknown 01/03/2024 1:50 PM CDT 01/03/2024 1:53 PM CDT Tano DOSS URINE [facility] [address] [place] [address] * (ABNORMAL) UA W/ SEDIMENT EXAM REFLEXED PER CRITERIA (01/03/2024 1:50 PM CDT) COLOR Yellow Yellow Color 01/03/2024 1:56 PM [facility] CLARITY Slightly Cloudy(A) Clear Clarity 01/03/2024 1:56 PM [facility] SPECIFIC GRAVITY,URINE 1.025 1.010, 1.015, 1.020, 1.025 01/03/2024 1:56 PM [facility] PH,URINE 6.0 6.0, 7.0, 8.0, 5.5, 6.5, 7.5, 8.5 01/03/2024 1:56 PM [facility] UROBILINOGEN, QUALITATIVE Normal Normal EU/dl 01/03/2024 1:56 PM [facility] PROTEIN, URINE Negative Negative mg/dL 01/03/2024 1:56 PM [facility] GLUCOSE, URINE Negative Negative mg/dL 01/03/2024 1:56 PM [facility] KETONES,URINE >=80(A) Negative mg/dL 01/03/2024 1:56 PM [facility] BILIRUBIN,URI NE Negative Negative 01/03/2024 1:56 PM [facility] OCCULT BLOOD,URINE Negative Negative 01/03/2024 1:56 PM T [facility] NITRITE Negative Negative 01/03/2024 1:56 PM T [facility] LEUKOCYTE ESTERASE Trace(A) Negative 01/03/2024 1:56 PM [facility] Urine URINE SPECIMEN / Unknown Non-Blood / Unknown 01/03/2024 1:50 PM CDT 01/03/2024 1:53 PM CDT Tano DOSS URINE [facility] [address] [place] [address] * (ABNORMAL) CBC WITH AUTO DIFFERENTIAL (01/03/2024 12:20 PM CDT) WHITE BLOOD COUNT 10.4 4.5 - 11.0 thou/cu mm 01/03/2024 12:26 PM [facility] RED BLOOD COUNT 4.77 4.00 - 5.20 mil/cu mm 01/03/2024 12:26 PM [facility] HEMOGLOBIN 14.8 12.0 - 16.0 g/dL 01/03/2024 12:26 PM [facility] HEMATOCRIT 43.7 33.0 - 51.0 % 01/03/2024 12:26 PM [facility] MCV 92 80 - 100 fL 01/03/2024 12:26 PM [facility] MCH 31.0 26.0 - 34.0 pg 01/03/2024 12:26 PM [facility] MCHC 33.9 32.0 - 36.0 g/dL 01/03/2024 12:26 PM [facility] RDW 12.0 11.5 - 15.5 % 01/03/2024 12:26 PM [facility] PLATELET COUNT 294 140 - 440 thou/cu mm 01/03/2024 12:26 PM [facility] MPV 8.2 6.5 - 11.0 fL 01/03/2024 12:26 PM CDT [facility] % NEUT 81.3 % 01/03/2024 12:26 PM T [facility] % LYMPH 13.3 % 01/03/2024 12:26 PM [facility] % MONO 5.1 % 01/03/2024 12:26 PM [facility] % EOS 0.1 % 01/03/2024 12:26 PM [facility] % BASO 0.2 % 01/03/2024 12:26 PM [facility] ABSOLUTE NEUTROPHILS 8.5(H) 1.7 - 7.0 thou/cu mm 01/03/2024 12:26 PM [facility] ABSOLUTE LYMPHOCYTES 1.4 0.9 - 2.9 thou/cu mm 01/03/2024 12:26 PM T [facility] ABSOLUTE MONOCYTES 0.5 <0.9 thou/cu mm 01/03/2024 12:26 PM [facility] ABSOLUTE EOSINOPHILS 0.0 <0.5 thou/cu mm 01/03/2024 12:26 PM [facility] ABSOLUTE BASOPHILS 0.0 <0.3 thou/cu mm 01/03/2024 12:26 PM [facility] Blood BLOOD SPECIMEN / Unknown Venipuncture / Unknown 01/03/2024 12:20 PM CDT 01/03/2024 12:23 PM CDT Tano DOSS HEMATOLOGY [facility] [address] [place] [address] * BASIC METABOLIC PANEL (01/03/2024 12:20 PM CDT) SODIUM 138 136 - 145 mmol/L 01/03/2024 12:43 PM T [facility] POTASSIUM 3.9 3.5 - 5.1 mmol/L 01/03/2024 12:43 PM T [facility] CHLORIDE 104 98 - 107 mmol/L 01/03/2024 12:43 PM [facility] CO2,TOTAL 23 22 - 29 mmol/L 01/03/2024 12:43 PM [facility] ANION GAP 11 5 - 18 01/03/2024 12:43 PM [facility] GLUCOSE 86 70 - 99 mg/dL 01/03/2024 12:43 PM [facility] CALCIUM 9.7 8.6 - 10.0 mg/dL 01/03/2024 12:43 PM [facility] BUN 8 6 - 20 mg/dL 01/03/2024 12:43 PM [facility] CREATININE 0.77 0.50 - 0.90 mg/dL 01/03/2024 12:43 PM [facility] BUN/CREAT RATIO 10 10 - 20 12:43 PM [facility] eGFR >90 >90 mL/min/1.7 3m2 01/03/2024 12:43 PM [facility] Comment:As of 2021, eG [...] 01/03/2024 12:23 PM T Tano DOSS CHEMISTRY [facility] [address] [place] [address] * HPV HIGH RISK (10/02/2023 11:30 AM JOB SITE SUPERINTENDENT) TYPE 16 Negative Negative 10/08/2023 2:27 PM JOB SITE SUPERINTENDENT [facility] TYPE 18 Negative Negative 10/08/2023 2:27 PM JOB SITE SUPERINTENDENT [facility] OTHER HIGH RISK TYPES Negative Negative 10/08/2023 2:27 PM JOB SITE SUPERINTENDENT [facility] Other (Cervical) 10/02/2023 11:30 AM JOB SITE SUPERINTENDENT 10/07/2023 10:06 AM JOB SITE SUPERINTENDENT Narrative [facility] - 10/08/2023 2:27 PM JOB SITE SUPERINTENDENT HPV types 16, 18, 31, 33, 35, 39, 45, 51, 52, 56, 58, 59, 66 and 68 DNA were undetectable or below the pre-set threshold. Methodology: Liza Brynn 4800 HPV Test Demi Parnell CNM MICROBIOLOGY [facility] [address] [place] [address], * ANTI HCV (11/08/2015 3:42 PM JOB SITE SUPERINTENDENT) HEPATITIS C ANTIBODY Non-Reacti ve Non-Reacti ve 11/08/2015 7:07 PM JOB SITE SUPERINTENDENT [facility] Blood specimen (specimen) BLOOD SPECIMEN / Unknown Venipuncture / Unknown 11/08/2015 3:42 PM JOB SITE SUPERINTENDENT 11/08/2015 3:42 PM JOB SITE SUPERINTENDENT Narrative [facility] - 11/08/2015 7:07 PM JOB SITE SUPERINTENDENT Antibodies to HCV not detected; does not exclude the possibility of exposure to HCV. Katie Lundberg RUBBER COMPOUNDER SEND OUTS [facility] [address] [place] [address], * ANTI HIV 1/2 (11/08/2015 3:42 PM JOB SITE SUPERINTENDENT) HIV-1/HIV-2 ANTIBODY Non-Reacti ve Non-Reacti ve 11/08/2015 7:01 PM JOB SITE SUPERINTENDENT [facility] Blood specimen (specimen) BLOOD SPECIMEN / Unknown Venipuncture / Unknown 11/08/2015 3:42 PM JOB SITE SUPERINTENDENT 11/08/2015 3:42 PM JOB SITE SUPERINTENDENT Narrative [facility] - 11/08/2015 7:01 PM JOB SITE SUPERINTENDENT HIV-1 p24 and HIV-1/HIV-2 Ab not detected Katie Lundberg RUBBER COMPOUNDER SEND OUTS [facility] [address] [place] [address], from Last 3 Months or Most Recently Relevant to Health Maintenance Advance Directives * Full Code (Latest Code Status on File) Date Activated Date Inactivated Comments 08/18/2023 11:57 AM 08/20/2023 6:12 PM Question Answer Comments Code Status Discussion: Reviewed Preferences Care Teams Medical Imaging Tech Relationship Specialty Start Date End Date None . PCP - General 08/18/23 Pcp, No . 08/18/23
== END 2024-03-09 11:10 | disposition home or self-care (01) ==
LOC: NFLDREF 11:10
PROVIDERS: PCP Nurse Practitioner Family; Visit Provider Advanced Practice Midwife
DX: Z34.82 Encounter for supervision of other normal pregnancy, second trimester (principal)
CPT/HCPCS: 81511

== ENCOUNTER 2024-04-05 13:54 | Outpatient (CLI) | payer OTHER, SELFPAY ==
--- OUTSIDE RECORDS SUMMARY | 2024-04-05 13:57 | XMS_ITS | Clinical Summary ---
Author Organization [facility] Address [address] [place] [address] Care Team Providers Care Study Abroad Advisor Name Role Phone Doctor, No Primary Care [...] Comments Blood Pressure 114/70 08/25/2023 1:14 PM COMPENSATION INTERN Pulse - - Temperature - - Respiratory Rate - - Oxygen Saturation - - Inhaled Oxygen Concentration - - Weight 56.7 kg (125 lb) 08/25/2023 1:14 PM COMPENSATION INTERN Height 165.1 cm (5' 5) 08/25/2023 1:14 PM COMPENSATION INTERN Body Mass Index 20.8 08/25/2023 1:14 PM COMPENSATION INTERN Plan of Treatment Health Maintenance Due Date Last Done Comments Hepatitis C Screening 1995 Pap Smear 1995 Anxiety Screening (JESSICA-2) 1996 Depression Assessment (PHQ-2) 1996 Pneumococcal <65 (1 of 2 - PCV) 2001 Adult Tetanus Booster 2014 COVID-19 Vaccine (3 - season) 2023, 05/01/2022 Influenza Vaccine (Season Ended) 2024 10/19/19 10 Care Teams Study Abroad Advisor Relationship Specialty Start Date End Date Doctor, No No ad PCP - General Radiology 08/25/23
--- OUTSIDE RECORDS SUMMARY | 2024-04-05 13:57 | XMS_ITS | Referral Summary ---
Author Organization [facility] Address [address] [place] [address] Care Team Providers Care Applications Programmer Analyst Name Role Phone Doctor, No Primary Care [...] Comments Blood Pressure 114/70 08/25/2023 1:14 PM WELFARE WORKER Pulse - - Temperature - - Respiratory Rate - - Oxygen Saturation - - Inhaled Oxygen Concentration - - Weight 56.7 kg (125 lb) 08/25/2023 1:14 PM WELFARE WORKER Height 165.1 cm (5' 5) 08/25/2023 1:14 PM WELFARE WORKER Body Mass Index 20.8 08/25/2023 1:14 PM WELFARE WORKER Plan of Treatment Not on file Care Teams Applications Programmer Analyst Relationship Specialty Start Date End Date Doctor, No No ad PCP - General Radiology 08/25/23
--- OUTSIDE RECORDS SUMMARY | 2024-04-05 13:58 | XMS_ITS | Clinical Summary ---
Author Organization [facility] Address [place], [place] [address] Care Team Providers Care Curriculum And Assessment Coordinator Name Role Phone None Primary Care Provider Unavailabl e Pcp, No Unavailable Unavailable Allergies No known active allergies Medications Medication Sig Dispensed Refills Start Date End Date Status ondansetron (ZOFRAN ODT) 4 mg disintegrating tabletIndications:Yvonne harley sickness Place 2 Tablets (8 mg) on the tongue two times daily. 20 Tablet 01/03/2024 Active metoclopramide HCl (REGLAN) 10 mg tabletIndications:Yvonne harley sickness Take 1 Tablet (10 mg) by mouth 3 times daily if needed for Nausea/Vomiting . 20 Tablet 01/03/2024 Active Active Problems Problem Noted Date Diagnosed Date Paresthesia 08/18/2023 Tobacco dependence 04/11/2019 Changing pigmented skin lesion 12/14/2017 Comments Yes Immunizations Name Administration Dates Next Due Influenza [...] Births 1 Date Outcome GA Total Labor Labor//3rd Weight Sex Type Anes PTL Do A1 A5 Name Clin Current Last Filed Vital Signs Vital Sign [...] 10/19/2009 Pap test for age 21-65 10/02/2026 , 10/02/2023, 04/05/2018 HIV for age 15-65 Completed 11/08/2015 Hepatitis C screening for ag e 18-79 Completed 11/08/2015 Pneumococcal series for age 6-64 Aged Out No longer eligible b ased on patient's age to complete this topic Procedures Procedure Name Priority Date/Time Associated Diagnosis Comments HPV THIN PREP Routine 10/02/2023 11:30 AM SECURITIES VAULT SUPERVISOR ANTI HIV 1/2 Routine 11/08/2015 3:42 PM SECURITIES VAULT SUPERVISOR Screening for STD (sexually transmitted disease) ANTI HCV Routine 11/08/2015 3:42 PM SECURITIES VAULT SUPERVISOR Screening for STD (sexually transmitted disease) from Last 3 Months or Most Recently Relevant to Health Maintenance Results * HPV HIGH RISK (10/02/2023 11:30 AM SECURITIES VAULT SUPERVISOR) TYPE 16 Negative Negative 10/08/2023 2:27 PM SECURITIES VAULT SUPERVISOR [facility] TYPE 18 Negative Negative 10/08/2023 2:27 PM SECURITIES VAULT SUPERVISOR [facility] OTHER HIGH RISK TYPES Negative Negative 10/08/2023 2:27 PM SECURITIES VAULT SUPERVISOR [facility] Other (Cervical) 10/02/2023 11:30 AM SECURITIES VAULT SUPERVISOR 10/07/2023 10:06 AM SECURITIES VAULT SUPERVISOR Narrative [facility] - 10/08/2023 2:27 PM SECURITIES VAULT SUPERVISOR HPV types 16, 18, 31, 33, 35, 39, 45, 51, 52, 56, 58, 59, 66 and 68 DNA were undetectable or below the pre-set threshold. Methodology: Liza Brynn 4800 HPV Test Demi Parnell CNM MICROBIOLOGY [facility] [address] [place] [address], * ANTI HCV (11/08/2015 3:42 PM SECURITIES VAULT SUPERVISOR) HEPATITIS C ANTIBODY Non-Reacti ve Non-Reacti ve 11/08/2015 7:07 PM SECURITIES VAULT SUPERVISOR [facility] Blood specimen (specimen) BLOOD SPECIMEN / Unknown Venipuncture / Unknown 11/08/2015 3:42 PM SECURITIES VAULT SUPERVISOR 11/08/2015 3:42 PM SECURITIES VAULT SUPERVISOR Narrative [facility] - 11/08/2015 7:07 PM SECURITIES VAULT SUPERVISOR Antibodies to HCV not detected; does not exclude the possibility of exposure to HCV. Katie Lundberg NP SEND OUTS [facility] [address] [place] [address], * ANTI HIV 1/2 (11/08/2015 3:42 PM SECURITIES VAULT SUPERVISOR) HIV-1/HIV-2 ANTIBODY Non-Reacti ve Non-Reacti ve 11/08/2015 7:01 PM SECURITIES VAULT SUPERVISOR [facility] Blood specimen (specimen) BLOOD SPECIMEN / Unknown Venipuncture / Unknown 11/08/2015 3:42 PM SECURITIES VAULT SUPERVISOR 11/08/2015 3:42 PM SECURITIES VAULT SUPERVISOR Narrative [facility] - 11/08/2015 7:01 PM SECURITIES VAULT SUPERVISOR HIV-1 p24 and HIV-1/HIV-2 Ab not detected Katie Lundberg NP SEND OUTS Performing Organization Address City/[facility]/ZIP Co de Phone Number [facility] [address] [place] [address], from Last 3 Months or Most Recently Relevant to Health Maintenance Advance Directives * Full Code (Latest Code Status on File) Date Activated Date Inactivated Comments 08/18/2023 11:57 AM 08/20/2023 6:12 PM Question Answer Comments Code Status Discussion: Reviewed Preferences Care Teams Curriculum And Assessment Coordinator Relationship Specialty Start Date End Date None . PCP - General 08/18/23 Pcp, No . 08/18/23
--- NOTE | 2024-04-05 14:00 | CRLHL7_ITS ---
For Patients: As a result of the Century Cures Act, medical imaging exams and procedure reports are released immediately into your electronic medical record. You may view this report before your referring provider. If you have questions, please contact your health care provider. OB ULTRASOUND GREATHER THAN 14 WEEKS 04/05/2024 CLINICAL HISTORY: anatomy survey. COMPARISON: 01/13/2024. FINDINGS: ZAY by LMP: 08/22/2024. GA: 20 weeks 1 day. Position: Multiple positions. Cervix: Visualized. Technique: TA. Length of closed cervix: 4.3 cm. Placenta/Cord Placenta Position: Posterior, left wall. Technique: TA. Placenta tip to internal OS: 5.6 cm. Umbilical Cord: 3 vessel cord. Placental Insertion: Centra. Amniotic Fluid: 4.1 cm SDP z(>2-<8 cm). Observed Structures: Cerebellum: 1.9 cm, 19 weeks 4 days. Cisterna Magna: 2.4 mm. Nuchal Fold: 2.7 mm. Lateral Ventricles: 6.5 mm. CSP Choroid Plexus Midline Falx Spine Abdomen: Stomach Abd Cord Insert Urinary Bladder Kidneys Diaphragm Face: Nose/Lips Orbital View Profile Limbs: Upper Extremities Lower Extremities Hands Feet Vascular: 4 Ch Heart LVOT RVOT 3VV 3VTV Biometry: BPD: 4.5 cm, 19 weeks 4 days. 25% HC: 16.6 cm, 19 weeks 2 days. 11% AC: 13.8 cm, 19 weeks 1 day. 17% FL: 3.1 cm, 19 weeks 5 days. 26% FL/AC: 22.63% HC/AC Ratio: 1.21. Heart Rate: 138 bpm. Age by this US: 19 weeks 3 days. ZAY by this US: 08/27/2024. EFW: 292 g, 10 oz. Percentile by ZAY: 13% IMPRESSION: 1. Measurements are consistent with dates. Good interval growth since the prior exam. 2. Normal anatomic survey. Lino Pitts M.D. Body/Diagnostic Radiologist [email or web address] Transcribed: 3:44 pm DW/Dictated by: Lino Pitts MD @ 04/06/2024 2:46:00 PM (Electronically Signed)
== END 2024-04-05 13:55 | disposition home or self-care (01) ==
LOC: US 13:55
PROVIDERS: PCP Nurse Practitioner Family; Visit Provider Advanced Practice Midwife
DX: Z34.92 Encounter for supervision of normal pregnancy, unspecified, second trimester (principal); Z3A.20 20 weeks gestation of pregnancy
CPT/HCPCS: 76805

== ENCOUNTER 2024-05-31 14:55 | Outpatient (CLI) | payer OTHER, SELFPAY ==
--- OUTSIDE RECORDS SUMMARY | 2024-05-31 14:57 | XMS_ITS | Clinical Summary ---
Author Organization [facility] Address [address] [place] [address] Care Team Providers Care Scientific Recruiter Name Role Phone Doctor, No Primary Care [...] Comments Blood Pressure 114/70 08/25/2023 1:14 PM PROVIDER RELATIONS REPRESENTATIVE Pulse - - Temperature - - Respiratory Rate - - Oxygen Saturation - - Inhaled Oxygen Concentration - - Weight 56.7 kg (125 lb) 08/25/2023 1:14 PM PROVIDER RELATIONS REPRESENTATIVE Height 165.1 cm (5' 5) 08/25/2023 1:14 PM PROVIDER RELATIONS REPRESENTATIVE Body Mass Index 20.8 08/25/2023 1:14 PM PROVIDER RELATIONS REPRESENTATIVE Plan of Treatment Health Maintenance Due Date Last Done Comments Hepatitis C Screening 1995 Pap Smear 1995 Anxiety Screening (JESSICA-2) 1996 Depression Assessment (PHQ-2) 1996 Pneumococcal <65 (1 of 2 - PCV) 2001 Adult Tetanus Booster 2014 COVID-19 Vaccine (3 - 2022- season) 2023, 05/01/2022 Influenza Vaccine (#1) 2024 10/19/2009 Care Teams Scientific Recruiter Relationship Specialty Start Date End Date Doctor, No No ad PCP - General Radiology 08/25/23
--- OUTSIDE RECORDS SUMMARY | 2024-05-31 14:57 | XMS_ITS | Clinical Summary ---
Author Organization [facility] s & [facility] Address [place], [place] [address] Care Team Providers Care Radiographer Cardiac Catheterization Name Role Phone None Primary Care Provider Unavailabl e Pcp, No Unavailable Unavailable Allergies No known active allergies Medications Medication Sig Dispensed Refills Start Date End Date Status ondansetron (ZOFRAN ODT) 4 mg disintegrating tabletIndications:Morbarb ng sickness Place 2 Tablets (8 mg) on the tongue two times daily. 20 Tablet 01/03/2024 Active metoclopramide HCl (REGLAN) 10 mg tabletIndications:Yvonne ng sickness Take 1 Tablet (10 mg) by mouth 3 times daily if needed for Nausea/Vomiting . 20 Tablet 01/03/2024 Active Active Problems Problem Noted Date Diagnosed Date Paresthesia 08/18/2023 Tobacco dependence 04/11/2019 Changing pigmented skin lesion 12/14/2017 Comments Yes Encounters Date Type Department Care Team Description 05/23/2024 Lab Requisition [address] [facility] [place] [address] Kimberly Cowart MD from Last 3 Months Immunizations Name Administration [...] Outcome GA Total Labor Labor/2nd/3rd Weight Sex Type Anes PTL Do A1 [...] Procedure Name Priority Date/Time Associated Diagnosis Comments QFT MITOGEN PERFORMABLE Routine 05/23/2024 1:36 PM CDT QFT TB2 PERFORMABLE Routine 05/23/2024 1 :36 PM CDT QFT TB1 PERFORMABLE Routine 05/23/2024 1 :36 PM CDT QUANTIFERON TB GOLD PLUS Routine 05/23/2024 1:36 PM CDT QUANTIFERON TB GOLD PLUS Routine 05/23/2024 1:36 PM CDT HPV THIN PREP Routine 10/02/2023 11:30 AM PRINCIPAL ADMINISTRATIVE CLERK ANTI HIV 1/2 Routine 11/08/2015 3:42 PM PRINCIPAL ADMINISTRATIVE CLERK Screening for STD (sexually transmitted disease) ANTI HCV Routine 11/08/2015 3:42 PM PRINCIPAL ADMINISTRATIVE CLERK Screening for STD (sexually transmitted disease) from Last 3 Months or Most Recently Relevant to Health Maintenance Results * QFT MITOGEN PERFORMABLE (05/23/2024 1:36 PM CDT) MITOGEN 6.93 IU/mL 05/25/2024 12:26 PM CDT [facility] Blood BLOOD SPECIMEN / Unknown Venipuncture / Unknown 05/23/2024 1:36 PM CDT 05/23/2024 1:36 PM CDT V Sebastián Cowart MD CHEMISTRY [facility] [address] [place] [address], [place] * QFT TB2 PERFORMABLE (05/23/2024 1:36 PM CDT) TB2 0.01 IU/mL 05/25/2024 11:44 AM CDT [facility] Blood BLOOD SPECIMEN / Unknown Venipuncture / Unknown 05/23/2024 1:36 PM CDT 05/23/2024 1:36 PM CDT V Sebastián Cowart MD CHEMISTRY Performing Organization Address City/[facility]/ZIP Co de Phone Number [facility] [address] [place] [address], [place] * QFT TB1 PERFORMABLE (05/23/2024 1:36 PM CDT) TB1 0.01 IU/mL 05/25/2024 1:18 PM CDT [facility] Blood BLOOD SPECIMEN / Unknown Venipuncture / Unknown 05/23/2024 1:36 PM CDT 05/23/2024 1:36 PM CDT V Sebastián Cowart MD CHEMISTRY [facility] [address] [address], [place] * QUANTIFERON TB GOLD PLUS (05/23/2024 1:36 PM CDT) QFTP NIL 0.03 05/25/2024 2:43 PM CDT [facility] TB1 0.01 IU/mL 05/25/2024 2:43 PM CDT [facility] TB2 0.01 IU/mL 05/25/2024 2:43 PM CDT [facility] MITOGEN 6.93 IU/mL 05/25/2024 2:43 PM CDT [facility] QFTP TB AG1 - NIL <0.00 024 2:43 PM CDT [facility] TB1-NIL % OF NIL <0 % 05/25/20 24 2:43 PM CDT [facility] QFTP TB AG2 - NIL <0.00 024 2:43 PM CDT [facility] TB2-NIL % OF NIL <0 % 05/25/20 24 2:43 PM CDT [facility] QFTP MITOGEN - NIL 6.90 2023 2:43 PM CDT [facility] QFTP QUANTIFERON INTERPRETATION Negative Negative 05/25/2024 2:43 PM CDT [facility] Blood BLOOD SPECIMEN / Unknown Venipuncture / Unknown 05/23/2024 1:36 PM CDT 05/23/2024 1:36 PM CDT [facility] - 05/25/2024 2:43 PM CDT M. tuberculosis infection not likely, but cannot be excluded in cases of immunosuppression. CAUTION: The performance of QuantiFERON-TB Gold Plus has not been evaluated in specimens from: - Individuals with impaired or altered immune factors (HIV infections, transplant patients, those receieving immunosuppressive drugs such as corticosteroids) and those with other clinical conditions (e.g., diabetes, hematological disorders). - Individuals younger than 17 years old. ??Refer to CDC website for testing recommendations in children 6-17 years old. - women V Sebastián Cowart MD CHEMISTRY [facility] [address] [place] [address], * HPV HIGH RISK (10/02/2023 11:30 AM PRINCIPAL ADMINISTRATIVE CLERK) TYPE 16 Negative Negative 10/08/2023 2:27 PM PRINCIPAL ADMINISTRATIVE CLERK [facility] TYPE 18 Negative Negative 10/08/2023 2:27 PM PRINCIPAL ADMINISTRATIVE CLERK [facility] OTHER HIGH RISK TYPES Negative Negative 10/08/2023 2:27 PM PRINCIPAL ADMINISTRATIVE CLERK [facility] Other (Cervical) 10/02/2023 11:30 AM PRINCIPAL ADMINISTRATIVE CLERK 10/07/2023 10:06 AM PRINCIPAL ADMINISTRATIVE CLERK Narrative [facility] - 10/08/2023 2:27 PM PRINCIPAL ADMINISTRATIVE CLERK HPV types 16, 18, 31, 33, 35, 39, 45, 51, 52, 56, 58, 59, 66 and 68 DNA were undetectable or below the pre-set threshold. Methodology: Liza Brynn 4800 HPV Test Demi Parnell CNM MICROBIOLOGY [facility] [address] [place] [address], * ANTI HCV (11/08/2015 3:42 PM PRINCIPAL ADMINISTRATIVE CLERK) HEPATITIS C ANTIBODY Non-Reacti ve Non-Reacti ve 11/08/2015 7:07 PM PRINCIPAL ADMINISTRATIVE CLERK [facility] Blood specimen (specimen) BLOOD SPECIMEN / Unknown Venipuncture / Unknown 11/08/2015 3:42 PM PRINCIPAL ADMINISTRATIVE CLERK 11/08/2015 3:42 PM PRINCIPAL ADMINISTRATIVE CLERK Narrative [facility] - 11/08/2015 7:07 PM PRINCIPAL ADMINISTRATIVE CLERK Antibodies to HCV not detected; does not exclude the possibility of exposure to HCV. Katie Lundberg CHEMICAL PREPARER SEND OUTS Performing Organization Address City/[facility]/ZIP Co de Phone Number [facility] [address] [place] [address], [place] * ANTI HIV 1/2 (11/08/2015 3:42 PM PRINCIPAL ADMINISTRATIVE CLERK) HIV-1/HIV-2 ANTIBODY Non-Reacti ve Non-Reacti ve 11/08/2015 7:01 PM PRINCIPAL ADMINISTRATIVE CLERK [facility] Blood specimen (specimen) BLOOD SPECIMEN / Unknown Venipuncture / Unknown 11/08/2015 3:42 PM PRINCIPAL ADMINISTRATIVE CLERK 11/08/2015 3:42 PM PRINCIPAL ADMINISTRATIVE CLERK Narrative [facility] - 11/08/2015 7:01 PM PRINCIPAL ADMINISTRATIVE CLERK HIV-1 p24 and HIV-1/HIV-2 Ab not detected Katie Lundberg NP SEND OUTS [facility] [address] [place] [address], from Last 3 Months or Most Recently Relevant to Health Maintenance Advance Directives * Full Code (Latest Code Status on File) Date Activated Date Inactivated Comments 08/18/2023 11:57 AM 08/20/2023 6:12 PM Question Answer Comments Code Status Discussion: Reviewed Preferences Care Teams Radiographer Cardiac Catheterization Relationship Specialty Start Date End Date None . PCP - General 08/18/23 Pcp, No . 08/18/23
--- OUTSIDE RECORDS SUMMARY | 2024-05-31 14:57 | XMS_ITS | Referral Summary ---
Author Organization [facility] Address [address] [place] [address] Care Team Providers Care Correctional Casework Specialist Name Role Phone Doctor, No Primary Care [...] Comments Blood Pressure 114/70 08/25/2023 1:14 PM KEY MAKER Pulse - - Temperature - - Respiratory Rate - - Oxygen Saturation - - Inhaled Oxygen Concentration - - Weight 56.7 kg (125 lb) 08/25/2023 1:14 PM KEY MAKER Height 165.1 cm (5' 5) 08/25/2023 1:14 PM KEY MAKER Body Mass Index 20.8 08/25/2023 1:14 PM KEY MAKER Plan of Treatment Not on file Care Teams Correctional Casework Specialist Relationship Specialty Start Date End Date Doctor, No No ad PCP - General Radiology 08/25/23
== END 2024-05-31 14:56 | disposition home or self-care (01) ==
LOC: NFLDREF 14:56
PROVIDERS: PCP Nurse Practitioner Family; Visit Provider Advanced Practice Midwife
DX: Z34.93 Encounter for supervision of normal pregnancy, unspecified, third trimester (principal); Z3A.28 28 weeks gestation of pregnancy
CPT/HCPCS: 86592

== ENCOUNTER 2024-06-02 08:27 | Outpatient (CLI) | payer OTHER, SELFPAY ==
--- OUTSIDE RECORDS SUMMARY | 2024-06-02 10:49 | XMS_ITS | Referral Summary ---
Author Organization [facility] Address [address] [place] [address] Care Team Providers Care Donor Recruitment Manager Name Role Phone Doctor, No Primary [...] Comments Blood Pressure 114/70 08/25/2023 1:14 PM LUMP RECEIVER Pulse - - Temperature - - Respiratory Rate - - Oxygen Saturation - - Inhaled Oxygen Concentration - - Weight 56.7 kg (125 lb) 08/25/2023 1:14 PM LUMP RECEIVER Height 165.1 cm (5' 5) 08/25/2023 1:14 PM LUMP RECEIVER Body Mass Index 20.8 08/25/2023 1:14 PM LUMP RECEIVER Plan of Treatment Not on file Care Teams Donor Recruitment Manager Relationship Specialty Start Date End Date Doctor, No No ad PCP - General Radiology 08/25/23
--- OUTSIDE RECORDS SUMMARY | 2024-06-02 10:49 | XMS_ITS | Clinical Summary ---
Author Organization [facility] Address [address] [place] [address] Care Team Providers Care Concaving Machine Operator Name Role Phone Doctor, No [...] Comments Blood Pressure 114/70 08/25/2023 1:14 PM CLINICAL APPLICATION CONSULTANT Pulse - - Temperature - - Respiratory Rate - - Oxygen Saturation - - Inhaled Oxygen Concentration - - Weight 56.7 kg (125 lb) 08/25/2023 1:14 PM CLINICAL APPLICATION CONSULTANT Height 165.1 cm (5' 5) 08/25/2023 1:14 PM CLINICAL APPLICATION CONSULTANT Body Mass Index 20.8 08/25/2023 1:14 PM CLINICAL APPLICATION CONSULTANT Plan of Treatment Health Maintenance Due Date Last Done Comments Hepatitis C Screening 1995 Pap Smear 1995 Anxiety Screening (JESSICA-2) 1996 Depression Assessment (PHQ-2) 1996 Pneumococcal <65 (1 of 2 - PCV) 2001 Adult Tetanus Booster 2014 COVID-19 Vaccine (3 - 2022- season) 2023, 05/01/2022 Influenza Vaccine (#1) 2024 10/19/2009 Care Teams Concaving Machine Operator Relationship Specialty Start Date End Date Doctor, No No ad PCP - General Radiology 08/25/23
--- OUTSIDE RECORDS SUMMARY | 2024-06-02 10:50 | XMS_ITS | Clinical Summary ---
Author Organization [facility] & [facility] Address [place], [place] [address] Care Team Providers Care Pellet Press Operator Name Role Phone None Primary Care Provider [...] Department Care Team Description 05/23/[address] [facility] [address] [facility] [place] [address] Kimberly Cowart MD from Last 3 Months [...] HPV THIN PREP Routine 10/02/2023 11:30 AM FORM STRIPPER ANTI HIV 1/2 Routine 11/08/2015 3:42 PM FORM STRIPPER Screening for STD (sexually transmitted disease) ANTI HCV Routine 11/08/2015 3:42 PM FORM STRIPPER Screening for STD (sexually transmitted disease) from Last 3 Months or Most Recently Relevant to Health Maintenance Results * QFT MITOGEN PERFORMABLE (05/23/2024 1:36 PM CDT) MITOGEN 6.93 IU/mL 05/25/2024 12:26 PM CDT [facility] Blood BLOOD SPECIMEN / Unknown Venipuncture / Unknown 05/23/2024 1:36 PM CDT 05/23/2024 1:36 PM CDT V Sebastián Cowart MD CHEMISTRY [facility] [address] [place] [address], [place] * QFT TB2 PERFORMABLE (05/23/2024 1:36 PM CDT) TB2 0.01 IU/mL 05/25/2024 11:44 AM CDT [facility] Blood BLOOD SPECIMEN / Unknown Venipuncture / Unknown 05/23/2024 1:36 PM CDT 05/23/2024 1:36 PM CDT V Sebastián Cowart MD CHEMISTRY Performing Organization Address City/[facility]/ZIP Co de Phone Number [facility] [address] [place] [address], [place] * QFT TB1 PERFORMABLE (05/23/2024 1:36 PM CDT) TB1 0.01 IU/mL 05/25/2024 1:18 PM CDT [facility] Blood BLOOD SPECIMEN / Unknown Venipuncture / Unknown 05/23/2024 1:36 PM CDT 05/23/2024 1:36 PM CDT V Sebastián Cowart MD CHEMISTRY [facility] [address] [address], [place] * QUANTIFERON TB GOLD PLUS (05/23/2024 1:36 PM CDT) QFTP NIL 0.03 05/25/2024 2:43 PM CDT [facility] TB1 0.01 IU/mL 05/25/2024 2:43 PM CDT [facility] TB2 0.01 IU/mL 05/25/2024 2:43 PM CDT [facility] MITOGEN 6.93 IU/mL 05/25/2024 2:43 PM CDT [facility] QFTP TB AG1 - NIL <0.00 024 2:43 PM CDT [facility] TB1-NIL % OF NIL <0 % 05/25/20 24 2:43 PM CDT [facility] QFTP TB AG2 - NIL <0.00 024 2:43 PM CDT [facility] TB2-NIL % OF NIL <0 % 05/25/20 24 2:43 PM CDT [facility] QFTP MITOGEN - NIL 6.90 2023 2:43 PM CDT [facility] QFTP QUANTIFERON INTERPRETATION Negative Negative 05/25/2024 2:43 PM CDT [facility] Blood BLOOD SPECIMEN / Unknown Venipuncture / Unknown 05/23/2024 1:36 PM CDT 05/23/2024 1:[address] [facility] - 05/25/2024 2:43 PM CDT M. [...] - women V Sebastián Cowart MD CHEMISTRY [facility] [address] [place] [address], * HPV HIGH RISK (10/02/2023 11:30 AM FORM STRIPPER) TYPE 16 Negative Negative 10/08/2023 2:27 PM FORM STRIPPER [facility] TR[facility] LAB[facility] TYPE 18 Negative Negative 10/08/2023 2:27 PM FORM STRIPPER [facility] OTHER HIGH RISK TYPES Negative Negative 10/08/2023 2:27 PM FORM STRIPPER [facility] Other (Cervical) 10/02/2023 11:30 AM FORM STRIPPER 10/07/2023 10:06 AM FORM STRIPPER Narrative [facility] - 10/08/2023 2:27 PM FORM STRIPPER HPV types 16, 18, 31, 33, 35, 39, 45, 51, 52, 56, 58, 59, 66 and 68 DNA were undetectable or below the pre-set threshold. Methodology: Liza Brynn 4800 HPV Test Demi Parnell CNM MICROBIOLOGY [facility] [address] [place] [address], * ANTI HCV (11/08/2015 3:42 PM FORM STRIPPER) HEPATITIS C ANTIBODY Non-Reacti ve Non-Reacti ve 11/08/2015 7:07 PM FORM STRIPPER [facility] Blood specimen (specimen) BLOOD SPECIMEN / Unknown Venipuncture / Unknown 11/08/2015 3:42 PM FORM STRIPPER 11/08/2015 3:42 PM FORM STRIPPER Narrative [facility] - 11/08/2015 7:07 PM FORM STRIPPER Antibodies to HCV not detected; does not exclude the possibility of exposure to HCV. Katie Lundberg PHOTO LAB SPECIALIST SEND OUTS Performing Organization Address City/[facility]/ZIP Co de Phone Number [facility] [address] [place] [address], [place] * ANTI HIV 1/2 (11/08/2015 3:42 PM FORM STRIPPER) HIV-1/HIV-2 ANTIBODY Non-Reacti ve Non-Reacti ve 11/08/2015 7:01 PM FORM STRIPPER [facility] Blood specimen (specimen) BLOOD SPECIMEN / Unknown Venipuncture / Unknown 11/08/2015 3:42 PM FORM STRIPPER 11/08/2015 3:42 PM FORM STRIPPER Narrative [facility] - 11/08/2015 7:01 PM FORM STRIPPER HIV-1 p24 and HIV-1/HIV-2 Ab not detected Katie Lundberg NP SEND OUTS [facility] [address] [place] [address], from Last 3 Months or Most Recently Relevant to Health Maintenance Advance Directives * Full Code (Latest Code Status on File) Date Activated Date Inactivated Comments 08/18/2023 11:57 AM 08/20/2023 6:12 PM Question Answer Comments Code Status Discussion: Reviewed Preferences Care Teams Pellet Press Operator Relationship Specialty Start Date End Date None . PCP - General 08/18/23 Pcp, No . 08/18/23
== END 2024-06-02 08:28 | disposition home or self-care (01) ==
LOC: NFLDREF 10:47
PROVIDERS: PCP Nurse Practitioner Family; Referring Provider Nurse Practitioner Family; Visit Provider Advanced Practice Midwife
DX: Z34.83 Encounter for supervision of other normal pregnancy, third trimester (principal)
CPT/HCPCS: 82951; 82952

== ENCOUNTER 2024-06-28 12:10 | Outpatient (CLI) | payer OTHER, SELFPAY ==
--- OUTSIDE RECORDS SUMMARY | 2024-06-28 12:12 | XMS_ITS | Clinical Summary ---
Author Organization [facility] Address [address] [place] [address] Care Team Providers Care Wardsperson Name Role Phone Doctor, No Primary Care [...] Comments Blood Pressure 114/70 08/25/2023 1:14 PM SCHOOL BUSINESS ADMINISTRATOR Pulse - - Temperature - - Respiratory Rate - - Oxygen Saturation - - Inhaled Oxygen Concentration - - Weight 56.7 kg (125 lb) 08/25/2023 1:14 PM SCHOOL BUSINESS ADMINISTRATOR Height 165.1 cm (5' 5) 08/25/2023 1:14 PM SCHOOL BUSINESS ADMINISTRATOR Body Mass Index 20.8 08/25/2023 1:14 PM SCHOOL BUSINESS ADMINISTRATOR Plan of Treatment Health Maintenance Due Date Last Done Comments Hepatitis C Screening 1995 Pap Smear 1995 Anxiety Screening (JESSICA-2) 1996 Depression Assessment (PHQ-2) 1996 Pneumococcal <65 (1 of 2 - PCV) 2001 Adult Tetanus Booster 2014 COVID-19 Vaccine (3 - season) 2024, 05/01/2022 Influenza Vaccine (#1) 2024 10/19/2009 RSV Vaccines (1 - 1-dose 75+ series) 2070 Care Teams Wardsperson Relationship Specialty Start Date End Date Doctor, No No ad PCP - General Radiology 08/25/23
--- OUTSIDE RECORDS SUMMARY | 2024-06-28 12:12 | XMS_ITS | Referral Summary ---
Author Organization [facility] Address [address] [place] [address] Care Team Providers Care Hydraulics Teacher Name Role Phone Doctor, No Primary Care [...] Comments Blood Pressure 114/70 08/25/2023 1:14 PM SHOW DESIGN SUPERVISOR Pulse - - Temperature - - Respiratory Rate - - Oxygen Saturation - - Inhaled Oxygen Concentration - - Weight 56.7 kg (125 lb) 08/25/2023 1:14 PM SHOW DESIGN SUPERVISOR Height 165.1 cm (5' 5) 08/25/2023 1:14 PM SHOW DESIGN SUPERVISOR Body Mass Index 20.8 08/25/2023 1:14 PM SHOW DESIGN SUPERVISOR Plan of Treatment Not on file Care Teams Hydraulics Teacher Relationship Specialty Start Date End Date Doctor, No No ad PCP - General Radiology 08/25/23
--- OUTSIDE RECORDS SUMMARY | 2024-06-28 12:12 | XMS_ITS | Clinical Summary ---
Author Organization [facility] Address [place], [place] [address] Care Team Providers Care Sizing Machine Tender Name Role Phone None Primary Care Provider [...] Department Care Team Description 05/23/2024 Lab Requisition [facility] [address] [place] [address] Kimberly Cowart MD from Last 3 Months [...] 04/11/2020 04/11/2019 COVID-19 vaccine series ( season) 2024 05/23/2022, 05/01/2022 Influenza for age 9-49 06/05/2024 10/19/2009 Pap test for age 21-65 10/02/2026 , 10/02/2023, 04/05/2018 RSV vaccine for adults or (1 - 1-dose 60+ series) 2055 HIV for age 15-65 Completed 11/08/2015 Hepatitis [...] PLUS Routine 05/23/2024 1:36 PM CDT HPV HIGH RISK Routine 10/02/2023 11:30 AM SECURITY NURSE ANTI HIV 1/2 Routine 11/08/2015 3:42 PM SECURITY NURSE Screening for STD (sexually transmitted disease) ANTI HCV Routine 11/08/2015 3:42 PM SECURITY NURSE Screening for STD (sexually transmitted disease) from Last 3 Months or Most Recently Relevant to Health Maintenance Results * QFT MITOGEN PERFORMABLE (05/23/2024 1:36 PM CDT) MITOGEN 6.93 IU/mL 05/25/2024 12:26 PM CDT [facility] Blood BLOOD SPECIMEN / Unknown Venipuncture / Unknown 05/23/2024 1:36 PM CDT 05/23/2024 1:36 PM CDT V Sebastián Cowart MD CHEMISTRY [facility] [address] [place] [address], [place] * QFT TB2 PERFORMABLE (05/23/2024 1:36 PM CDT) TB2 0.01 IU/mL 05/25/2024 11:44 AM CDT [facility] Blood BLOOD SPECIMEN / Unknown Venipuncture / Unknown 05/23/2024 1:36 PM CDT 05/23/2024 1:36 PM CDT V Sebastián Cowart MD CHEMISTRY Performing Organization Address City/[facility]/ZIP Co de Phone Number [facility] [address] [place] [address], [place] * QFT TB1 PERFORMABLE (05/23/2024 1:36 PM CDT) TB1 0.01 IU/mL 05/25/2024 1:18 PM CDT [facility] Blood BLOOD SPECIMEN / Unknown Venipuncture / Unknown 05/23/2024 1:36 PM CDT 05/23/2024 1:36 PM CDT V Sebastián Cowart MD CHEMISTRY Performing Organization Address City/[facility]/ZIP Co de Phone Number [facility] [address] [place] [address], [place] * QUANTIFERON TB GOLD PLUS (05/23/2024 1:36 PM CDT) QFTP NIL 0.03 05/25/2024 2:43 PM CDT [facility] TB1 0.01 IU/mL 05/25/2024 2:43 PM CDT [facility] TB2 0.01 IU/mL 05/25/2024 2:43 PM CDT [facility] MITOGEN 6.93 IU/mL 05/25/2024 2:43 PM CDT [facility] QFTP TB AG1 - NIL <0.00 024 2:43 PM CDT [facility] TB1-NIL % OF NIL <0 % 05/25/20 24 2:43 PM CDT [facility] QFTP TB AG2 - NIL <0.00 024 2:43 PM CDT [facility] TB2-NIL % OF NIL <0 % 05/25/20 2:43 PM CDT [facility] QFTP MITOGEN - NIL 6.90 2023 2:43 PM CDT [facility] QFTP QUANTIFERON INTERPRETATION Negative Negative 05/25/2024 2:43 PM CDT [facility] Blood BLOOD SPECIMEN / Unknown Venipuncture / Unknown 05/23/2024 1:36 PM CDT 05/23/2024 1:36 PM CDT [facility] LABORATORY - 05/25/2024 2:43 PM CDT M. [...] - women V Sebastián Cowart MD CHEMISTRY [facility] [address] [place] [address], * HPV HIGH RISK (10/02/2023 11:30 AM SECURITY NURSE) TYPE 16 Negative Negative 10/08/2023 2:27 PM SECURITY NURSE [facility] LAB[facility] TYPE 18 Negative Negative 10/08/2023 2:27 PM SECURITY NURSE [facility] LAB[facility] OTHER HIGH RISK TYPES Negative Negative 10/08/2023 2:27 PM SECURITY NURSE [facility] Other (Cervical) 10/02/2023 11:30 AM SECURITY NURSE 10/07/2023 10:06 AM SECURITY NURSE Narrative [facility] - 10/08/2023 2:27 PM SECURITY NURSE HPV types 16, 18, 31, 33, 35, 39, 45, 51, 52, 56, 58, 59, 66 and 68 DNA were undetectable or below the pre-set threshold. Methodology: Liza Brynn 4800 HPV Test Demi Parnell CNM MICROBIOLOGY [facility] [address] [place] [address], * ANTI HCV (11/08/2015 3:42 PM SECURITY NURSE) HEPATITIS C ANTIBODY Non-Reacti ve Non-Reacti ve 11/08/2015 7:07 PM SECURITY NURSE [facility] Blood specimen (specimen) BLOOD SPECIMEN / Unknown Venipuncture / Unknown 11/08/2015 3:42 PM SECURITY NURSE 11/08/2015 3:42 PM SECURITY NURSE Narrative [facility] - 11/08/2015 7:07 PM SECURITY NURSE Antibodies to HCV not detected; does not exclude the possibility of exposure to HCV. Katie Lundberg BILLING SPECIALIST SEND OUTS [facility] [address] [place] [address], * ANTI HIV 1/2 (11/08/2015 3:42 PM SECURITY NURSE) HIV-1/HIV-2 ANTIBODY Non-Reacti ve Non-Reacti ve 11/08/2015 7:01 PM SECURITY NURSE [facility] Blood specimen (specimen) BLOOD SPECIMEN / Unknown Venipuncture / Unknown 11/08/2015 3:42 PM SECURITY NURSE 11/08/2015 3:42 PM SECURITY NURSE Narrative [facility] - 11/08/2015 7:01 PM SECURITY NURSE HIV-1 p24 and HIV-1/HIV-2 Ab not detected Katie Lundberg BILLING SPECIALIST SEND OUTS [facility] [address] [place] [address], from Last 3 Months or Most Recently Relevant to Health Maintenance Advance Directives * Full Code (Latest Code Status on File) Date Activated Date Inactivated Comments 08/18/2023 11:57 AM 08/20/2023 6:12 PM Question Answer Comments Code Status Discussion: Reviewed Preferences Care Teams Sizing Machine Tender Relationship Specialty Start Date End Date None . PCP - General 08/18/23 Pcp, No . 08/18/23
--- NOTE | 2024-06-28 12:15 | CRLHL7_ITS ---
For Patients: As a result of the Century Cures Act, medical imaging exams and procedure reports are released immediately into your electronic medical record. You may view this report before your referring provider. If you have questions, please contact your health care provider. INDICATION: Third trimester scan, evaluate growth. COMPARISON: 04/05/2024 TECHNIQUE: Real time rdz scale imaging of the fetus was performed. FINDINGS: Sonographic imaging demonstrates a single living intrauterine gestation. Fetus demonstrates a regular cardiac rate of 159 beats per minute. Fetus has a vertex position. The placenta lies left. Amniotic fluid volume appears normal and there is a single deepest vertical pocket: 6.7 cm. The estimated weight is 1874gm which lies at the 33rd %. On the prior OB ultrasound exam dated 04/05/2024 the estimated weight was at the 13th%. BPD 20th percentile. HC 22nd percentile. AC is 50th percentile. FL is 23rd percentile. The HC/AC ratio measures 1.05 range (0.96-1.14). IMPRESSION: Sonographic gestational age 32 weeks 0 days and a sonographic due date of 08/23/2024. Good correlation with dates. Estimated weight at 33rd percentile. Abdominal circumference 50th percentile. Dictated by Teddy King MD @ 06/28/2024 1:56:10 PM (Electronically Signed)
== END 2024-06-28 12:11 | disposition home or self-care (01) ==
LOC: US 12:10
PROVIDERS: PCP Nurse Practitioner Family; Visit Provider Advanced Practice Midwife
DX: Z34.93 Encounter for supervision of normal pregnancy, unspecified, third trimester (principal); Z3A.32 32 weeks gestation of pregnancy
CPT/HCPCS: 76816

== ENCOUNTER 2024-07-12 11:39 | Outpatient (CLI) | payer OTHER, SELFPAY | END 2024-07-12 11:40 | disposition home or self-care (01) | LOC: NFLDREF 11:40 | PROVIDERS: PCP Nurse Practitioner Family; Visit Provider Advanced Practice Midwife | DX: Z34.93 Encounter for supervision of normal pregnancy, unspecified, third trimester (principal); Z3A.34 34 weeks gestation of pregnancy | CPT/HCPCS: 86803 ==

== ENCOUNTER 2024-07-26 11:55 | Outpatient (CLI) | payer OTHER, SELFPAY ==
--- OUTSIDE RECORDS SUMMARY | 2024-07-28 11:34 | XMS_ITS | Clinical Summary ---
Author Organization [facility] Address [address] [place] [address] Care Team Providers Care Outreach And Education Social Worker Name Role Phone Doctor, No Primary [...] Comments Blood Pressure 114/70 08/25/2023 1:14 PM ROTARY CUTTER OPERATOR Pulse - - Temperature - - Respiratory Rate - - Oxygen Saturation - - Inhaled Oxygen Concentration - - Weight 56.7 kg (125 lb) 08/25/2023 1:14 PM ROTARY CUTTER OPERATOR Height 165.1 cm (5' 5) 08/25/2023 1:14 PM ROTARY CUTTER OPERATOR Body Mass Index 20.8 08/25/2023 1:14 PM ROTARY CUTTER OPERATOR Plan of Treatment Health Maintenance Due Date Last Done Comments Hepatitis C Screening 1995 Pap Smear 1995 Anxiety Screening (JESSICA-2) 1996 Depression Assessment (PHQ-2) 1996 Pneumococcal <65 (1 of 2 - PCV) 2001 Adult Tetanus Booster 2014 COVID-19 Vaccine (3 - season) 2024, 05/01/2022 Influenza Vaccine (#1) 2024 10/19/2009 RSV Vaccines (1 - 1-dose 75+ series) 2070 Care Teams Outreach And Education Social Worker Relationship Specialty Start Date End Date Doctor, No No ad PCP - General Radiology 08/25/23
--- OUTSIDE RECORDS SUMMARY | 2024-07-28 11:34 | XMS_ITS | Referral Summary ---
Author Organization [facility] Address [address] [place] [address] Care Team Providers Care Tree Sapper Name Role Phone Doctor, No Primary Care [...] Comments Blood Pressure 114/70 08/25/2023 1:14 PM MUD WORKER Pulse - - Temperature - - Respiratory Rate - - Oxygen Saturation - - Inhaled Oxygen Concentration - - Weight 56.7 kg (125 lb) 08/25/2023 1:14 PM MUD WORKER Height 165.1 cm (5' 5) 08/25/2023 1:14 PM MUD WORKER Body Mass Index 20.8 08/25/2023 1:14 PM MUD WORKER Plan of Treatment Not on file Care Teams Tree Sapper Relationship Specialty Start Date End Date Doctor, No No ad PCP - General Radiology 08/25/23
--- OUTSIDE RECORDS SUMMARY | 2024-07-28 11:34 | XMS_ITS | Clinical Summary ---
Author Organization [facility] Address [place], [place] [address] Care Team Providers Care Roll Slicing Machine Tender Name Role Phone None Primary [...] Department Care Team Description 05/23/2024 Lab Requisition [facility] [address] [facility] [place] [address] Kimberly Cowart MD from Last 3 Months [...] file 08/18/2023 Food Insecurity Answer Date Recorded Do you worry your food will run out before you are able to buy more? 1 08/18/2023 Transportation Needs Answer Date Record ed Lack of Transportation (Medical) 1 08/18/2023 Housing Stability Answer Date Recorded What is your housing situation today? 1 08/18/2023 Comments Yes Sex and Gender [...] vaccine for adults or (1 - 1-dose 75+ series) 2070 HIV for age 15-65 Completed 11/08/2015 Hepatitis [...] HPV HIGH RISK Routine 10/02/2023 11:30 AM LOAN CLOSER ANTI HIV 1/2 Routine 11/08/2015 3:42 PM LOAN CLOSER Screening for STD (sexually transmitted disease) ANTI HCV Routine 11/08/2015 3:42 PM LOAN CLOSER Screening for STD (sexually transmitted disease) from Last 3 Months or Most Recently Relevant to Health Maintenance Results * QFT MITOGEN PERFORMABLE (05/23/2024 1:36 PM CDT) MITOGEN 6.93 IU/mL 05/25/2024 12:26 PM CDT [facility] Blood BLOOD SPECIMEN / Unknown Venipuncture / Unknown 05/23/2024 1:36 PM CDT 05/23/2024 1:36 PM CDT V Sebastián Cowart MD CHEMISTRY [facility] [address] [place] [address], [place] * QFT TB2 PERFORMABLE (05/23/2024 1:36 PM CDT) TB2 0.01 IU/mL 05/25/2024 11:44 AM CDT [facility] Blood BLOOD SPECIMEN / Unknown Venipuncture / Unknown 05/23/2024 1:36 PM CDT 05/23/2024 1:36 PM CDT V Sebastián Cowart MD CHEMISTRY Performing Organization Address [facility]/ZIP Co de Phone Number [facility] [address] [place] [address], [place] * QFT TB1 PERFORMABLE (05/23/2024 1:36 PM CDT) TB1 0.01 IU/mL 05/25/2024 1:18 PM CDT [facility] Blood BLOOD SPECIMEN / Unknown Venipuncture / Unknown 05/23/2024 1:36 PM CDT 05/23/2024 1:36 PM CDT V Sebastián Cowart MD CHEMISTRY Performing Organization Address City/[facility]/ZIP Co de Phone Number [facility] [address] [place] [address], [place] * QUANTIFERON TB GOLD PLUS (05/23/2024 1:36 PM CDT) QFTP NIL 0.03 05/25/2024 2:43 PM CDT [facility]- NTRAL LABORATORY TB1 0.01 IU/mL 05/25/2024 2:43 PM CDT [facility] TB2 0.01 IU/mL 05/25/2024 2:43 PM CDT [facility] MITOGEN 6.93 IU/mL 05/25/2024 2:43 PM CDT [facility] NTRAL LABORATORY QFTP TB AG1 - NIL <0.00 024 2:43 PM CDT [facility] TB1-NIL % OF NIL <0 % 05/25/20 24 2:43 PM CDT [facility] QFTP TB AG2 - NIL <0.00 024 2:43 PM CDT [facility] TB2-NIL % OF NIL <0 % 05/25/20 2:43 PM CDT [facility] QFTP MITOGEN - NIL 6.90 2023 2:43 PM CDT [facility] QFTP QUANTIFERON INTERPRETATION Negative Negative 05/25/2024 2:43 PM CDT [facility] Blood BLOOD SPECIMEN / Unknown Venipuncture / Unknown 05/23/2024 1:36 PM CDT 05/23/2024 1:36 PM CDT [facility] - 05/25/2024 2:43 PM CDT [...] - women V Sebastián Cowart MD CHEMISTRY [facility] [address] [place] [address], * HPV HIGH RISK (10/02/2023 11:30 AM LOAN CLOSER) TYPE 16 Negative Negative 10/08/2023 2:27 PM LOAN CLOSER [facility] TRAL LABORATORY TYPE 18 Negative Negative 10/08/2023 2:27 PM LOAN CLOSER [facility] TRAL LABORATORY OTHER HIGH RISK TYPES Negative Negative 10/08/2023 2:27 PM LOAN CLOSER [facility] Other (Cervical) 10/02/2023 11:30 AM LOAN CLOSER 10/07/2023 10:06 AM LOAN CLOSER Narrative [facility] - 10/08/2023 2:27 PM LOAN CLOSER HPV types 16, 18, 31, 33, 35, 39, 45, 51, 52, 56, 58, 59, 66 and 68 DNA were undetectable or below the pre-set threshold. Methodology: Liza Brynn 4800 HPV Test Demi Parnell CNM MICROBIOLOGY [facility] [address] [place] [address], * ANTI HCV (11/08/2015 3:42 PM LOAN CLOSER) HEPATITIS C ANTIBODY Non-Reacti ve Non-Reacti ve 11/08/2015 7:07 PM LOAN CLOSER [facility] Blood specimen (specimen) BLOOD SPECIMEN / Unknown Venipuncture / Unknown 11/08/2015 3:42 PM LOAN CLOSER 11/08/2015 3:42 PM LOAN CLOSER [facility] - 11/08/2015 7:07 PM LOAN CLOSER Antibodies to HCV not detected; does not exclude the possibility of exposure to HCV. Katie Lundberg ABATTOIR MANAGER SEND OUTS [facility] [address] [place] [address], * ANTI HIV 1/2 (11/08/2015 3:42 PM LOAN CLOSER) HIV-1/HIV-2 ANTIBODY Non-Reacti ve Non-Reacti ve 11/08/2015 7:01 PM LOAN CLOSER [facility] Blood specimen (specimen) BLOOD SPECIMEN / Unknown Venipuncture / Unknown 11/08/2015 3:42 PM LOAN CLOSER 11/08/2015 3:42 PM LOAN CLOSER Narrative [facility] - 11/08/2015 7:01 PM LOAN CLOSER HIV-1 p24 and HIV-1/HIV-2 Ab not detected Katie Lundberg ABATTOIR MANAGER SEND OUTS [facility] [address] [place] [address], from Last 3 Months or Most Recently Relevant to Health Maintenance Advance Directives * Full Code (Latest Code Status on File) Date Activated Date Inactivated Comments 08/18/2023 11:57 AM 08/20/2023 6:12 PM Question Answer Comments Code Status Discussion: Reviewed Preferences Care Teams Roll Slicing Machine Tender Relationship Specialty Start Date End Date None . PCP - General 08/18/23 Pcp, No . 08/18/23
== END 2024-07-26 11:56 | disposition home or self-care (01) ==
LOC: NFLDREF 07-28 11:32
PROVIDERS: PCP Nurse Practitioner Family; Referring Provider Nurse Practitioner Family; Visit Provider Advanced Practice Midwife
DX: Z34.93 Encounter for supervision of normal pregnancy, unspecified, third trimester (principal); Z3A.36 36 weeks gestation of pregnancy
CPT/HCPCS: 87081; 87653

== ENCOUNTER 2024-08-23 13:16 | Outpatient (CLI) | payer OTHER, SELFPAY ==
--- OUTSIDE RECORDS SUMMARY | 2024-08-23 13:19 | XMS_ITS | Referral Summary ---
Author Organization [facility] Address [address] [place] [address] Care Team Providers Care Mall Manager Name Role Phone Doctor, No Primary [...] drink = 0.6 oz pur e alcohol) Comments No Sex and Gender Information Value Date Recorded Sex Assigned at Not on file Legal Sex Female 9:34 AM BOW TACKER Gender Identity Not on file Sexual Orientation Not on file Last Filed Vital Signs Vital Sign Reading Time Taken Comments Blood Pressure 114/70 08/25/2023 1:14 PM BOW TACKER Pulse - - Temperature - - Respiratory Rate - - Oxygen Saturation - - Inhaled Oxygen Concentration - - Weight 56.7 kg (125 lb) 08/25/2023 1:14 PM BOW TACKER Height 165.1 cm (5' 5) 08/25/2023 1:14 PM BOW TACKER Body Mass Index 20.8 08/25/2023 1:14 PM BOW TACKER Plan of Treatment Not on file Care Teams Mall Manager Relationship Specialty Start Date End Date Doctor, No No ad PCP - General Radiology 08/25/23
--- OUTSIDE RECORDS SUMMARY | 2024-08-23 13:19 | XMS_ITS | Clinical Summary ---
Author Organization [facility] Address [place], [place] [address] Care Team Providers Care Mechanical Maintenance Worker Name Role Phone None Primary Care Provider [...] Department Care Team Description 05/23/2024 Lab Requisition [facility] [address] [facility] [place] [address] Kimberly Cowart MD from Last 3 Months [...] 0 04/11/2019 Social Connections Answer Date Recorded Do you often feel lonely or isolated from those around you? 0 08/18/2023 Financial Resource Strain Answer Date R ecorded Difficulty of Paying Living Expenses 3 08/18/2023 Difficulty of Paying Living Expenses Not on file 08/18/2023 Food Insecurity Answer Date Recorded Do you worry your food will run out before you are able to buy more? 1 08/18/2023 Transportation Needs Answer Date Record ed Does lack of transportation keep you from medica l appointments? 1 08/18/2023 Does lack of transportation keep you from work, meetings or getting things that you need? 1 08/18/2023 Housing Stability Answer Date Recorded [...] 73 01/03/2024 2:09 PM CDT Temperature 36.6 C (97.8 F) 01/03/2024 12:04 PM CDT Respiratory Rate 18 01/03/2024 12:04 PM CDT [...] HPV HIGH RISK Routine 10/02/2023 11:30 AM CONTROL VALVE TECHNICIAN ANTI HIV 1/2 Routine 11/08/2015 3:42 PM CONTROL VALVE TECHNICIAN Screening for STD (sexually transmitted disease) ANTI HCV Routine 11/08/2015 3:42 PM CONTROL VALVE TECHNICIAN Screening for STD (sexually transmitted disease) from Last 3 Months or Most Recently Relevant to Health Maintenance Results * QFT MITOGEN PERFORMABLE (05/23/2024 1:36 PM CDT) MITOGEN 6.93 IU/mL 05/25/2024 12:26 PM CDT [facility] Blood BLOOD SPECIMEN / Unknown Venipuncture / Unknown 05/23/2024 1:36 PM CDT 05/23/2024 1:36 PM CDT V Sebastián Cowart MD CHEMISTRY Performing Organization Address City/[facility]/ZIP Co de Phone Number [facility] [address] [place] [address], [place] * QFT TB2 PERFORMABLE (05/23/2024 1:36 PM CDT) TB2 0.01 IU/mL 05/25/2024 11:44 AM CDT [facility] Blood BLOOD SPECIMEN / Unknown Venipuncture / Unknown 05/23/2024 1:36 PM CDT 05/23/2024 1:36 PM CDT V Sebastián Cowart MD CHEMISTRY Performing Organization Address [facility] Co de Phone Number [facility] [address] [place] [address], [place] * QFT TB1 PERFORMABLE (05/23/2024 1:36 PM CDT) TB1 0.01 IU/mL 05/25/2024 1:18 PM CDT [facility] Blood BLOOD SPECIMEN / Unknown Venipuncture / Unknown 05/23/2024 1:36 PM CDT 05/23/2024 1:36 PM CDT V Sebastián Cowart MD CHEMISTRY Performing Organization Address City/[facility]/ZIP Co de Phone Number [facility] [address] [place] [address], [place] * QUANTIFERON TB GOLD PLUS (05/23/2024 1:36 PM CDT) QFTP NIL 0.03 05/25/2024 2:43 PM CDT [facility] NTRAL LABORATORY TB1 0.01 IU/mL 05/25/2024 2:43 PM CDT [facility] NTRAL LAB[facility] TB2 0.01 IU/mL 05/25/2024 2:43 PM CDT [facility] NTRAL LABORATORY MITOGEN 6.93 IU/mL 05/25/2024 2:43 PM CDT [facility] QFTP TB AG1 - NIL <0.00 024 2:43 PM CDT [facility] TB1-NIL % OF NIL <0 % 05/25/20 2:43 PM CDT [facility] QFTP TB AG2 - NIL <0.00 024 2:43 PM CDT [facility] TB2-NIL % OF NIL <0 % 05/25/20 2:43 PM CDT [facility] QFTP MITOGEN - NIL 6.90 2023 2:43 PM CDT [facility] QFTP QUANTIFERON INTERPRETATION Negative Negative 05/25/2024 2:43 PM CDT [facility] Blood BLOOD SPECIMEN / Unknown Venipuncture / Unknown 05/23/2024 1:36 PM CDT 05/23/2024 1:36 PM CDT [facility] LAB[facility]ATORY - 05/25/2024 2:43 PM CDT M. [...] - Individuals younger than 17 years old. Refer to CDC website for testing recommendations in children 6-17 years old. - women V Sebastián Cowart MD CHEMISTRY [facility] [address] [place] [address], * HPV HIGH RISK (10/02/2023 11:30 AM CONTROL VALVE TECHNICIAN) TYPE 16 Negative Negative 10/08/2023 2:27 PM CONTROL VALVE TECHNICIAN [facility] TRAL LABORATORY TYPE 18 Negative Negative 10/08/2023 2:27 PM CONTROL VALVE TECHNICIAN [facility] OTHER HIGH RISK TYPES Negative Negative 10/08/2023 2:27 PM CONTROL VALVE TECHNICIAN [facility] Other (Cervical) 10/02/2023 11:30 AM CONTROL VALVE TECHNICIAN 10/07/2023 10:06 AM CONTROL VALVE TECHNICIAN Narrative [facility] - 10/08/2023 2:27 PM CONTROL VALVE TECHNICIAN HPV types 16, 18, 31, 33, 35, 39, 45, 51, 52, 56, 58, 59, 66 and 68 DNA were undetectable or below the pre-set threshold. Methodology: Liza Brynn 4800 HPV Test Demi Parnell CNM MICROBIOLOGY [facility] [address] [place] [address], * ANTI HCV (11/08/2015 3:42 PM CONTROL VALVE TECHNICIAN) HEPATITIS C ANTIBODY Non-Reacti ve Non-Reacti ve 11/08/2015 7:07 PM CONTROL VALVE TECHNICIAN [facility] Blood specimen (specimen) BLOOD SPECIMEN / Unknown Venipuncture / Unknown 11/08/2015 3:42 PM CONTROL VALVE TECHNICIAN 11/08/2015 3:42 PM CONTROL VALVE TECHNICIAN Narrative [facility] - 11/08/2015 7:07 PM CONTROL VALVE TECHNICIAN Antibodies to HCV not detected; does not exclude the possibility of exposure to HCV. Katie Lundberg RN CARDIAC CATH SEND OUTS [facility] [address] [place] [address], [place] * ANTI HIV 1/2 (11/08/2015 3:42 PM CONTROL VALVE TECHNICIAN) HIV-1/HIV-2 ANTIBODY Non-Reacti ve Non-Reacti ve 11/08/2015 7:01 PM CONTROL VALVE TECHNICIAN [facility] TRA LABORATORY Blood specimen (specimen) BLOOD SPECIMEN / Unknown Venipuncture / Unknown 11/08/2015 3:42 PM CONTROL VALVE TECHNICIAN 11/08/2015 3:42 PM CONTROL VALVE TECHNICIAN Narrative [facility] LAB[facility] - 11/08/2015 7:01 PM CONTROL VALVE TECHNICIAN HIV-1 p24 and HIV-1/HIV-2 Ab not detected Katie Lundberg RN CARDIAC CATH SEND OUTS [facility] LABOR[facility] [address] [place] [address], from Last 3 Months or Most Recently Relevant to Health Maintenance Advance Directives * Full Code (Latest Code Status on File) Date Activated Date Inactivated Comments 08/18/2023 11:57 AM 08/20/2023 6:12 PM Question Answer Comments Code Status Discussion: Reviewed Preferences Care Teams Mechanical Maintenance Worker Relationship Specialty Start Date End Date None . PCP - General 08/18/23 Pcp, No . 08/18/23
--- OUTSIDE RECORDS SUMMARY | 2024-08-23 13:19 | XMS_ITS | Clinical Summary ---
Author Organization [facility] Address [address] [place] [address] Care Team Providers Care Sales Support Advisor Name Role Phone Doctor, No Primary [...] on file Legal Sex Female 9:34 AM USER EXPERIENCE ANALYST Gender Identity Not on file Sexual Orientation Not on file Last Filed Vital Signs Vital Sign Reading Time Taken Comments Blood Pressure 114/70 08/25/2023 1:14 PM USER EXPERIENCE ANALYST Pulse - - Temperature - - Respiratory Rate - - Oxygen Saturation - - Inhaled Oxygen Concentration - - Weight 56.7 kg (125 lb) 08/25/2023 1:14 PM USER EXPERIENCE ANALYST Height 165.1 cm (5' 5) 08/25/2023 1:14 PM USER EXPERIENCE ANALYST Body Mass Index 20.8 08/25/2023 1:14 PM USER EXPERIENCE ANALYST Plan of Treatment Health Maintenance Due Date Last Done Comments Hepatitis C Screening 1995 Pap Smear 1995 Anxiety Screening (JESSICA-2) 1996 Depression Assessment (PHQ-2) 1996 Pneumococcal <65 (1 of 2 - PCV) 2001 Adult Tetanus Booster 2014 COVID-19 Vaccine (3 - 2023- season) 2024, 05/01/2022 Influenza Vaccine (#1) 2024 10/19/2009 RSV Vaccines (1 - 1-dose 75+ series) 2070 Care Teams Sales Support Advisor Relationship Specialty Start Date End Date Doctor, No No ad PCP - General Radiology 08/25/23
--- NOTE | 2024-08-23 14:45 | CRLHL7_ITS ---
For Patients: As a result of the Century Cures Act, medical imaging exams and procedure reports are released immediately into your electronic medical record. You may view this report before your referring provider. If you have questions, please contact your health care provider. OB BIOPHYSICAL PROFILE, 08/23/2024 CLINICAL HISTORY: Post dates. LMP: 11/16/23. ZAY by LMP: 08/22/24. GA: 40 weeks 1 day. TECHNIQUE: Transabdominal. FINDINGS: CERVIX: Not visualized. POSITIONING: Vertex. AMNIOTIC FLUID: 5.2 cm. PLACENTA: Technique: Transabdominal. Placenta Position: Posterior. DOPPLERS: Heart Rate: 129 bpm. BIOPHYSICAL PROFILE: 8 Total Score 2 Gross Body Movements 2 Tone 2 Respiratory Activity 2 Amniotic Fluid SDP IMPRESSION: Biophysical profile score 8/8. Iveth Benson M.D. Diagnostic/Breast Radiologist [email or web address] Transcribed: 12:51 pm DW/Dictated by: Iveth Benson MD @ 08/24/2024 12:38:00 PM (Electronically Signed)
== END 2024-08-23 13:17 | disposition home or self-care (01) ==
LOC: US 13:17
PROVIDERS: PCP Nurse Practitioner Family; Visit Provider Advanced Practice Midwife
DX: O48.0 Post-term pregnancy (principal)
CPT/HCPCS: 76819

== ENCOUNTER 2024-08-30 05:11 | Inpatient (IN) | payer OTHER, SELFPAY ==
[2024-08-30] VITALS (20 sets, daily range): BP systolic 109–127; BP diastolic 58–84; PULSE 76–255; RESP 18; TEMP 36.6–37.2; O2SAT 80–100; BMI 26.6
--- OUTSIDE RECORDS SUMMARY | 2024-08-30 02:36 | XMS_ITS | Clinical Summary ---
Author Organization [facility] Address [place], [place] [address] Care Team Providers Care Manager Inside Name Role Phone None Primary Care Provider [...] for age 21-65 10/02/2026 3, 10/02/2023, 04/05/2018 RSV vaccine for adults or (1 - 1-dose 75+ series) 2070 HIV for age 15-65 Completed 11/08/2015 Hepatitis C screening for ag e 18-79 Completed 11/08/2015 Pneumococcal series for age 6-64 Aged Out No longer eligible b ased on patient's age to complete this topic Procedures Procedure Name Priority Date/Time Associated Diagnosis Comments HPV HIGH RISK Routine 10/02/2023 11:30 AM TELEPHONE SOLICITOR SUPERVISOR ANTI HIV 1/2 Routine 11/08/2015 3:42 PM TELEPHONE SOLICITOR SUPERVISOR Screening for STD (sexually transmitted disease) ANTI HCV Routine 11/08/2015 3:42 PM TELEPHONE SOLICITOR SUPERVISOR Screening for STD (sexually transmitted disease) from Last 3 Months or Most Recently Relevant to Health Maintenance Results * HPV HIGH RISK (10/02/2023 11:30 AM TELEPHONE SOLICITOR SUPERVISOR) TYPE 16 Negative Negative 10/08/2023 2:27 PM TELEPHONE SOLICITOR SUPERVISOR [facility] TRAL LABORATORY TYPE 18 Negative Negative 10/08/2023 2:27 PM TELEPHONE SOLICITOR SUPERVISOR [facility] OTHER HIGH RISK TYPES Negative Negative 10/08/2023 2:27 PM TELEPHONE SOLICITOR SUPERVISOR [facility] Other (Cervical) 10/02/2023 11:30 AM TELEPHONE SOLICITOR SUPERVISOR 10/07/2023 10:06 AM TELEPHONE SOLICITOR SUPERVISOR Narrative [facility] - 10/08/2023 2:27 PM TELEPHONE SOLICITOR SUPERVISOR HPV types 16, 18, 31, 33, 35, 39, 45, 51, 52, 56, 58, 59, 66 and 68 DNA were undetectable or below the pre-set threshold. Methodology: Liza Brynn 4800 HPV Test Demi ROSAS MICROBIOLOGY [facility] [address] [place] [address], * ANTI HCV (11/08/2015 3:42 PM TELEPHONE SOLICITOR SUPERVISOR) Pathologist [facility] HEPATITIS C ANTIBODY Non-Reacti ve Non-Reacti ve 11/08/2015 7:07 PM TELEPHONE SOLICITOR SUPERVISOR [facility] TRAL LABORATORY Blood specimen (specimen) BLOOD SPECIMEN / Unknown Venipuncture / Unknown 11/08/2015 3:42 PM TELEPHONE SOLICITOR SUPERVISOR 11/08/2015 3:42 PM TELEPHONE SOLICITOR SUPERVISOR Narrative [facility] - 11/08/2015 7:07 PM TELEPHONE SOLICITOR SUPERVISOR Antibodies to HCV not detected; does not exclude the possibility of exposure to HCV. Katie Lundberg NP SEND OUTS [facility] [address] [place] [address], * ANTI HIV 1/2 (11/08/2015 3:42 PM TELEPHONE SOLICITOR SUPERVISOR) Pathologist [facility] HIV-1/HIV-2 ANTIBODY Non-Reacti ve Non-Reacti ve 11/08/2015 7:01 PM TELEPHONE SOLICITOR SUPERVISOR [facility] TRAL LABORATORY Blood specimen (specimen) BLOOD SPECIMEN / Unknown Venipuncture / Unknown 11/08/2015 3:42 PM TELEPHONE SOLICITOR SUPERVISOR 11/08/2015 3:42 PM TELEPHONE SOLICITOR SUPERVISOR Narrative [facility] - 11/08/2015 7:01 PM TELEPHONE SOLICITOR SUPERVISOR HIV-1 p24 and HIV-1/HIV-2 Ab not detected Katie Lundberg NP SEND OUTS [facility] [address] [place] [address], from Last 3 Months or Most Recently Relevant to Health Maintenance Advance Directives * Full Code (Latest Code Status on File) Date Activated Date Inactivated Comments 08/18/2023 11:57 AM 08/20/2023 6:12 PM Question Answer Comments Code Status Discussion: Reviewed Preferences Care Teams Manager Inside Relationship Specialty Start Date End Date None . PCP - General 08/18/23 Pcp, No . 08/18/23
--- OUTSIDE RECORDS SUMMARY | 2024-08-30 02:36 | XMS_ITS | Referral Summary ---
Author Organization [facility] Address [address] [place] [id number] Care Team Providers Care Gear Cutter Name Role Phone Doctor, No Primary Care [...] on file Legal Sex Female 9:34 AM MENTAL HEALTH CASE MANAGER Gender Identity Not on file Sexual Orientation Not on file Last Filed Vital Signs Vital Sign Reading Time Taken Comments Blood Pressure 114/70 08/25/2023 1:14 PM MENTAL HEALTH CASE MANAGER Pulse - - Temperature - - Respiratory Rate - - Oxygen Saturation - - Inhaled Oxygen Concentration - - Weight 56.7 kg (125 lb) 08/25/2023 1:14 PM MENTAL HEALTH CASE MANAGER Height 165.1 cm (5' 5) 08/25/2023 1:14 PM MENTAL HEALTH CASE MANAGER Body Mass Index 20.8 08/25/2023 1:14 PM MENTAL HEALTH CASE MANAGER Plan of Treatment Not on file Care Teams Gear Cutter Relationship Specialty Start Date End Date Doctor, No No ad PCP - General Radiology 08/25/23
--- OUTSIDE RECORDS SUMMARY | 2024-08-30 02:36 | XMS_ITS | Clinical Summary ---
Author Organization [facility] Address [address] [place] [id number] Care Team Providers Care Special Effects Technician Name Role Phone Doctor, No Primary Care [...] on file Legal Sex Female 9:34 AM NUTRITION CONSULTANT Gender Identity Not on file Sexual Orientation Not on file Last Filed Vital Signs Vital Sign Reading Time Taken Comments Blood Pressure 114/70 08/25/2023 1:14 PM NUTRITION CONSULTANT Pulse - - Temperature - - Respiratory Rate - - Oxygen Saturation - - Inhaled Oxygen Concentration - - Weight 56.7 kg (125 lb) 08/25/2023 1:14 PM NUTRITION CONSULTANT Height 165.1 cm (5' 5) 08/25/2023 1:14 PM NUTRITION CONSULTANT Body Mass Index 20.8 08/25/2023 1:14 PM NUTRITION CONSULTANT Plan of Treatment Health Maintenance Due Date Last Done Comments Hepatitis C Screening 1995 Pap Smear 1995 Anxiety Screening (JESSICA-2) 1996 Depression Assessment (PHQ-2) 1996 Pneumococcal <65 (1 of 2 - PCV) 2001 Adult Tetanus Booster 2014 COVID-19 Vaccine (3 - 2023- season) 2024, 05/01/2022 Influenza Vaccine (#1) 2024 10/19/2009 RSV Vaccines (1 - 1-dose 75+ series) 2070 Care Teams Special Effects Technician Relationship Specialty Start Date End Date Doctor, No No ad PCP - General Radiology 08/25/23
--- NOTE | 2024-08-30 03:13 | W.PM.LDBA ---
Subjective History of Present Illness Date Seen: 08/30/24 Narrative: Patient is being admitted to Labor and Delivery for early labor. She is scheduled for an IOL this morning post dates IOL. She is a 29 year old at 41w0d gestation. Her full history and physical was dictated by Sweta Cobb CNM on 08/03/2024. Please see this for details. Specific Issues/Plans G 3 P 0020 IOL scheduled 08/30 at 41.1 due to availability. If things open they will call her and bring her in at 41.0. : Hipolito - has 5 kids of his own (Age 9-19, and has grandson). Had vasectomy reversal. #Nausea and vomiting in . Well-managed with ondansetron. #EFW 13%ile at Anatomy Scan recommend growth US in 3rd trimester (32 weeks) Growth at 32 weeks, EFW 33% # Failed 1hr GTT. 3hr passed all values. Covid: Completed initial vaccine, no boosters. Recommended. Patient declines. Flu: declined 07/26/2024 Tdap: declined 07/26/2024 RSV: ask next visit AFP neg OB labs from infertility clinic (not IVF ): Blood type: B+, antibody screen negative.?Hgb (11/18/23): 14.4?Platelets (11/18/23): 338?Rubella: Immune?RPR: non-reactive?HBsAg: negative?HIV: negative?GC/Chlamydia: negative/negative?Pap (10/02/23): NIL, HPV-?? OB - Problem Based A/P Additional Plan (1) : Status: Acute (2) Pain during labor: Status: Acute Plan ASSESSMENT:?? 29 at 41 1/7 weeks gestation?? complicated by:??none Labor type: Spontaneous, Early labor?? Category 1 FHR pattern.??? Labor complicated by: post term?? GBS negative ?? PLAN:?? 1. Routine intrapartum cares as ordered. Continue with expectant management?? 2. Monitoring per policy, continuous or intermittent as indicated?? 3. Planning unmedicated . Desires water . Consent signed. Hep C negative. Candidate for analgesia of choice.??? 4. Patient encouraged to reposition and ambulate to promote physiologic labor and .?? 5. Anticipate ? OB Exam Physical Exam Vital signs: Pulse BP Pulse Ox 83 125/84 99 08/30/24 02:40 08/30/24 02:40 08/30/24 02:40 Narrative: Vitals Reviewed Constitutional:? Alert and oriented x3 HEENT:? Normocephalic, atraumatic Neck:? Supple Lungs:? Clear to auscultation bilaterally Heart:? Regular rate and rhythm, no murmur, rub or gallop Abdomen:? Soft, nontender, and gravid. Vertex by Aakash's, confirmed with cervical exam. Extremities:? No edema or erythema Cervix: 4 cm/70%/-1 station per nursing NST: 115 bpm/moderate variability/accelerations/ no decelerations/q4 min contractions mild to palpate
[2024-08-30] MEDS: LACTATED RINGERS 1000 ML 1,000 ML IV (03:35)
--- NOTE | 2024-08-30 03:58 | PM.OBPNL ---
Subjective Date Seen: 08/30/24 Narrative: Prolonged decel noted prompting IV start, position change with resolution of deceleration. Oralia states baby had a big couple of movements just prior to the deceleration. Accelerations returned shortly after. To continue course. Objective Exam: Objective: Constitutional: Alert and oriented x3, [mild/moderate/severe] distress, coping well Vital signs stable, see nurse documentation Abdomen: gravid, contractions palpate [mild/moderate/strong] with contractions and soft between Cervix:deferred NST: 110-125 bpm/moderate variability/present accelerations/decelerations present, prolonged x 1, variables intermittent/contractions q 4-5 min, with a run of more frequent contractions just prior to prolonged decels etc. Vital Signs: Last Vital Signs Pulse 83 08/30/24 02:40 BP 125/84 08/30/24 02:40 Pulse Ox 99 08/30/24 02:40 Plan Plan: ASSESSMENT:?? 29 at 41 1/7 weeks gestation?? complicated by:??none Labor type: early labor?? Category 2 FHR pattern.??? Labor complicated by: post term, cat 2 tones?? GBS negative PLAN:?? 1. Routine intrapartum cares as ordered. Continue with expectant management and support?? 2. Monitoring per policy, continuous or intermittent??as indicated 3. Planning unmedicated . Desires water . Consent signed. Hep C negative. Candidate for analgesia of choice.??? 4. Patient encouraged to reposition and ambulate to promote physiologic labor and .?? 5. Anticipate ?
--- NOTE | 2024-08-30 09:52 | P.OBPN_ITS ---
Subjective Date Seen: 08/30/24 Narrative: Jennifer is a at 41 1/7 weeks gestation that presented earlier this morning in early labor. Since arrival her contractions have spaced out. She is coping well with labor reporting contractions are still regular and painful but not intensifying. She just ordered breakfast. She is supported in labor by her . We discussed plan of care earlier this morning. She requested that I come back after she ate breakfast for a cervical exam and review of plan. Objective Exam: Objective: Constitutional: Alert and oriented x3, mild distress, coping well Vital signs stable, see nurse documentation Abdomen: gravid, contractions palpate moderate with contractions and soft between Cervix: 4.5 cm/70%/-1 station/vertex; AROM clear fluid NST: 120 bpm/moderate variability/15x15 accelerations/no dec elerations/contractions, irregular and every 7 minutes Vital Signs: Last Vital Signs Temp 98 F 08/30/24 09:32 Pulse 87 08/30/24 09:32 BP 116/77 08/30/24 09:32 Pulse Ox 97 08/30/24 07:41 Plan Plan: ASSESSMENT:?? 29 at 41 1/7 weeks gestation?? complicated by:?Failed 1 hour, passed 3 hour gct Labor type: early labor?? Category 1 FHR pattern.??? Labor complicated by: post term? GBS negative PLAN:?? 1. Routine intrapartum cares as ordered. Continue with expectant management and support?? 2. Monitoring per policy, continuous?as indicated 3. Planning unmedicated . Desires water . Consent signed. Hep C negative. Candidate for analgesia of choice, if desired.??? 4. Patient encouraged to reposition and ambulate to promote physiologic labor and .?? 5. Anticipate ?
--- NOTE | 2024-08-30 10:36 | PM.OBPNL ---
Subjective Date Seen: 08/30/24 Narrative: Jennifer is a at 41 1/7 weeks gestation that presented this morning in early labor. Her labor had slowed and we had discussed AROM vs Pitocin. She was AROM'd for clear fluid and contractions started to become closer and more regular shortly after. I was called by the RN to come assess the tracing due to concern for bradycardia. When I entered the room, FHR was again 120's and patient was positioned on hands and knees. RN had attempted to place FSE but had difficulty due to maternal position. Now that it was recovering, we elected to monitor with external US. In review, the heart rate had been down to the 60's for approximately 7 minutes. Patient remained in hands and knees for approximately 10 minutes post deceleration before being positioned to her side. Fetus heart rate recovered to 120's with moderate variability. Discussed findings with patient and . Will continue to monitor. Patient reports she is starting to feel more regular contractions and they are more painful than before. Objective Exam: Objective: Constitutional: Alert and oriented x3, mild/moderate distress, coping well Vital signs stable, see nurse documentation Abdomen: gravid, contractions palpate mild/moderate with contractions and soft between Cervix: deferred, unchanged from previous per RN NST: 120 bpm/moderate variability/15x15 accelerations/prolonged decelerations/contractions every 2-4 minutes Vital Signs: Last Vital Signs Temp 98.0 F 08/30/24 11:53 Pulse 87 08/30/24 09:32 BP 110/67 08/30/24 13:10 Pulse Ox 100 08/30/24 10:26 Plan Plan: ASSESSMENT:?? 29 at 41 1/7 weeks gestation?? complicated by:?Failed 1 hour, passed 3 hour gct Labor type: early labor?? Category 2 FHR pattern.??? Labor complicated by: post term, cat 2 tones?? GBS negative PLAN:?? 1. Routine intrapartum cares as ordered. Continue with expectant management and support?? 2. Monitoring per policy, continuous post category II tracing with prolonged deceleration. Continue to monitor FHR closely. 3. Planning unmedicated . Desires water . Consent signed. Hep C negative. Candidate for analgesia of choice.??? 4. Patient encouraged to reposition and ambulate to promote physiologic labor and .?? 5. Anticipate ?
--- NOTE | 2024-08-30 14:36 | W.PM.OBVAGDE ---
OB Procedure Vag Delivery Mother Details Mother Details: The patient is a 29 year-old, 3, now Para 1021, admitted on 08/30/24 at 41 1/7 weeks gestation. : 3 Para: 1 Weeks Gestation: 41.1 Admission Date: 08/30/24 Additional Details Amniotic Membrane Status: AROM Amniotic Membrane Rupture Date: 08/30/24 Amniotic Membrane Rupture Time: 09:40 Amniotic Membrane Fluid Description: Clear Analgesia/Anesthesia Type: None Waterbirth: Yes Pitcoin: No (Preferred expectant management) Intrapartal Events: None Induction Method: Cervidil Delivery augmentation: rupture of membranes Labor Onset: 09:40 Complete: 13:24 Pushin:24 Heart: heart tones during second stage were reassuring with intermittent variable decelerations that returned to baseline between contractions. Delivery Details Delivery Date: 08/30/24 Delivery Time: 14:08 Route of delivery: Gender: Female Infant Viability: Alive; Heart Rate Present Position at Delivery: OA Delivery Details: Patient was admitted for spontaneous onset of labor but slow progress after admission. Labor was augmented with AROM. She then progressed normally. AROM'd at 0940 with clear fluid. Patient desired waterbirth but wasn't sure she would be able to cope. She was encouraged to try the water before making a decision about other pain management options. She entered the tub and shortly after started having intense pressure. Patient was complete at 1224 and pushing at 1224. of a viable female at 1408 in a semi-reclined position in the tub. Vertex delivered OA. No nuchal cord or shoulder. Body delivered easily and without incident. Infant passed to mothers abdomen with a vigorous cry. Cord was clamped and cut at > 5 minutes. APGARS were 8 at one minute and 9 at five minutes respectively. Mouth was bulb suctioned. Intact placenta with a 3 vessel cord delivered spontaneously at 1420. Placenta was noted to have marginal cord insertion. Fundus firm. Intact perineum. QBL 100 cc + EBL 300 cc, total 400 cc. Mother and baby stable; mother plans to breastfeed. weight pending. 1 Minute Interval Total Score: 8 5 Minute Interval Total Score: 9 Additional Details Shoulder Dystocia: No Placenta Delivery Time: 14:20 Placental Delivery Description: Spontaneous Delivery repair: Vicryl Procedure Done: Global Blood Loss: 400 Laceration: None Blood Loss Measurement Type: QBL (+ EBL of tub) Bakri Used: No Sponge/Need Count Correct: Yes Cord Vessel Description: 3 Vessels Event Summary Status: Mother and were stable after delivery. Disposition: floor
[2024-08-31 00:06] VITALS: BP 113/78; PULSE 94; RESP 20; TEMP 37.2; O2SAT 97
[2024-08-31 04:20] VITALS: BP 118/82; PULSE 94; RESP 16; TEMP 36.9; O2SAT 96
[2024-08-31 07:59] VITALS: BP 108/72; PULSE 89; RESP 16; TEMP 36.7; O2SAT 97
[2024-08-31] MEDS: DOCUSATE SODIUM 100 MG CAPSULE PO (08:12)
--- NOTE | 2024-08-31 10:41 | P.DS_ITS ---
DS: Providers Provider Date Seen: 08/31/24 Date of admission: 08/30/24 05:11 Primary care physician: Mercy Curtis APRN, COPY WRITER Admitting Clinician: Yris Espana CNM Attending Physician on discharge: Davide Cobb CNM Date of Discharge: 08/31/24 DS: Diagnosis Discharge Diagnosis (1) care and examination immediately after delivery: Status: Acute (2) Lactating mother: Status: Acute Exam Narrative: Exam Narrative: VSS, afebrile GENERAL APPEARANCE: ?normal affect, alert, no distress MOOD: ?appropriate HEENT: normocephalic, neck supple, full ROM CHEST: ?Symmetrical chest wall movement. ?Normal respiratory effort. ?Clear to auscultation HEART: ?regular rate and rhythm ABDOMEN: ?soft, non-tender. Uterine fundus is firm, at Umbilicus, Midline and is appropriate for the stage of recovery. ?Bowel sounds present. PERINEUM: ?mild edema of the perineum, intact. EXTREMITIES: ?normal and no edema Const: Vital Signs, click to edit/add: Vital Signs - 24 hr 08/30/24 11:53 08/30/24 13:10 08/30/24 14:38 Temperature 98.0 F Pulse Rate 86 Pulse Rate [Left P ulse Oximeter] Respiratory Rate Blood Pressure 110/67 127/74 Blood Pressure [Le ft Arm] Pulse [facility]xim[facility] 14:51 08/30/24 15:06 08/30/24 15:21 Temperature Pulse Rate 80 76 78 Pulse Rate [Left P ulse Oximeter] Respiratory Rate Blood Pressure 113/61 116/62 109/60 Blood Pressure [Le ft Arm] Pulse Oximetry [facility] 08[facility]30/24 15:36 08/30/24 15:51 08/30/24 16:06 Temperature Pulse Rate 87 76 103 H Pulse Rate [Left P ulse Oximeter] Respiratory Rate Blood Pressure 114/67 127/77 123/75 Blood Pressure [Le ft Arm] Pulse Oximetry [facility] 08/30/24 16:21 08/30/24 16:21 08/30/24 20:05 Temperature 98.9 F 98.7 F Pulse Rate 89 Pulse Rate [Left P ulse Oximeter] 94 Respiratory Rate 18 Blood Pressure 118/76 Blood Pressure [Le ft Arm] 126/83 Pulse Oximetry 97 Oxygen Delivery Me thod Room Air 08/31/24 00:06 08/31/24 04:20 08/31/24 07:59 Temperature 99 F 98.5 F 98.0 F Pulse Rate Pulse Rate [Left P ulse Oximeter] 94 94 89 Respiratory Rate 20 16 16 Blood Pressure Blood Pressure [Le ft Arm] 113/78 118/82 108/72 Pulse Oximetry 97 96 97 Oxygen Delivery Me thod Room Air Room Air Room Air Documenting provider has reviewed patient's vital signs: yes OB - DS: Summary Hospital Course Hospital Course: Jennifer is a 29 y.o. who was admitted to L & D for labor. ?She had an uncomplicated NVD.?The patient feels well. ?The pain is well controlled with current medications. ?She has no new complaints. ?She is breast feeding and repo rts things are going well.? the patient has done well.? Vitals have been stable.? She has remained afebrile.? Has a good appetite, is tolerating a general diet. ?She is voiding without difficulty.? She is passing gas and has not had a bowel movement.? She is ambulating and denies any dizziness.? Has Small amount of rubra lochia. ?She is undecided what she is planning for prevention. They are requesting discharge today. Peripartum Data Infant delivery method: Vaginal Laceration description: None [place] Gender: Female Infant Discharge Plan: Home Status at Discharge Functional status at discharge: independent ambulation Overall status at discharge: patient is progressing back to baseline Time Spent with Patient Time attestation: Total time spent providing and/or coordinating discharge services: Time spent: Less than 30 minutes Discharge Plan Discharge Disposition: Home, Self-Care Date of Admission: 08/30/24 05:11 Attending Provider on Discharge: Davide Cobb Primary Care Provider: Mercy Curtis Condition: Stable Anticipated Discharge Date/Time: 08/31/24 Discharge Medications: New acetaminophen 500 mg Tablet 1,000 mg PO Q6H PRNQty: 0 0RF docusate sodium 100 mg Capsule 100 mg PO DAILY Qty: 90 0RF ibuprofen 600 mg Tablet 600 mg PO Q6H PRNQty: 60 0RF Continued Classic 28 mg iron- 800 mcg tablet PO DAILY omega 7-ruc-zsu-fish oil [Fish Oil] 60-90-500 mg capsule 2 cap PO QDAY cholecalciferol (vitamin D3) 50 mcg (2,000 unit) capsule 50 mcg PO QDAY ascorbate calcium (vitamin C) 500 mg tablet 500 mg PO QDAY ondansetron 4 mg tablet,disintegrating 4 mg PO Q6-8H PRN (Reason: nausea and vomiting) Qty: 60 0RF Discharge Orders: Discharge Order (Routine); Ordered 08/31/24 Ordered By: Davide Cobb Patient Education: OB Over the Counter Medication Information, OB Vaginal/Breast Feeding Additional Instructions: Discharge instructions were reviewed with the patient including signs and symptoms of infection and home going medications Nothing vaginally for 6 weeks: no tampons or intercourse Off Work or School for 6 weeks Symptoms to report to doctor: * Bleeding that saturates more than one pad per hour * Passing clots larger than the size of a golf ball * Pain not relieved by prescribed medication * Fever above 100.4 degrees Fahrenheit * A foul vaginal odor * Difficulty in emotions, mood, and functions * Thoughts of hurting yourself and/or * Painful, reddened area in your breast * Any drainage, redness, or tenderness in your IV/epidural site * Severe headache that doesn't improve after taking medications * Changes in vision, including temporary loss of vision, blurred vision, and/or light sensitivity * Upper abdominal pain (usually under ribs on the right side) * Decrease in urination or painful, frequent urinating * Chest pain * Shortness of breath * Tenderness or pain with redness and/swelling in the calf(s) of your leg 2-week visit: discuss infant feeding concerns, review control options and screen for anxiety/depression. 6-week visit for an annual exam. consultation services are available to all mothers and babies for the first year after delivery.? To make an appointment, please call [phone]. Activity Level: Activity as Tolerated Discharge Diet: Regular Follow Up Appointments: [facility] [Provider Group] Forms: [employer] Info Instructions
[2024-08-31 12:58] VITALS: BP 108/73; PULSE 87; RESP 16; TEMP 36.6; O2SAT 97
== END 2024-08-31 17:59 | disposition home or self-care (01) | DRG 807 ==
LOC: OB OUT 05:11 → OB 05:11
PROVIDERS: Admitting Provider Midwife; PCP Nurse Practitioner Family; Visit Provider Advanced Practice Midwife
DX: O48.0 Post-term pregnancy (principal); Z37.0 Single live birth; O76 Abnormality in fetal heart rate and rhythm complicating labor and delivery; O21.9 Vomiting of pregnancy, unspecified; Z3A.41 41 weeks gestation of pregnancy
CPT/HCPCS: 85025; 86592; 86850; 86900; 86901; A9270; J7120

== ENCOUNTER 2025-04-17 11:50 | Outpatient (CLI) | payer OTHER, SELFPAY | END 2025-04-17 11:51 | disposition home or self-care (01) | PROVIDERS: PCP Nurse Practitioner Family; Visit Provider Physician Assistant Medical | DX: R42 Dizziness and giddiness (principal); R00.2 Palpitations; Z86.2 Personal history of diseases of the blood and blood-forming organs and certain disorders involving the immune mechanism; Z79.899 Other long term (current) drug therapy | CPT/HCPCS: 82607; 82728; 83540; 83550; 84443 ==